=== PATIENT | female | born 1955 | race Caucasian/White ===

== ENCOUNTER 2018-12-26 13:00 | Outpatient (REF) | payer MEDICAID, SELFPAY ==
[2018-12-26 22:20] LABS: HCT 41.7 % (36.0-46.0); HGB 14.3 g/dL (12.0-15.5); Mean Corp. HGB Concentration 34.3 g/dL (32.0-36.0); Mean Corpuscular Hemoglobin 29.7 pg (27.0-33.0); Mean Corpuscular Volume 86.7 fL (80-95); Mean Platelet Volume 13.1 fL (8.0-11.0); Platelet Count 199 x1000/uL (130-400); RBC 4.81 m/cumm (4.00-5.20); RBC Distribution Width 13.2 % (11.7-14.6)
[2018-12-26 22:51] LABS: Hemoglobin A1C 5.6 % (4.5-6.2)
[2018-12-26 22:57] LABS: ALT 28 U/L (12-78); AST 23 U/L (15-37); Alkaline Phosphatase 124 U/L (46-116); Anion Gap 10.7 mmol/L (3-11); BUN 18 mg/dL (7-18); Bilirubin, Total 0.4 mg/dL (0.2-1.0); CO2 25.3 mmol/L (21.0-32.0); CREATININE 0.79 mg/dL (0.55-1.02); Calcium 9.1 mg/dL (8.5-10.1); Calculated LDL 171 mg/dL; Chloride 105 mmol/L (98-107); Cholesterol 239 mg/dL (50-200); Glucose 86 mg/dL (70-100); HDL Cholesterol 51 mg/dL (40-60); Sodium 141 mmol/L (136-145); TSH 1.43 uIU/mL (0.36-3.74); Triglyceride 86 mg/dL (30-150)
[2018-12-26 23:20] LABS: FREE T4 0.78 ng/dL (0.76-1.46)
[2018-12-28 04:55] LABS: Vitamin D 25 Total 35.3 ng/ml (30-100)
== END 2018-12-26 13:20 ==
LOC: NCHCN 13:00
PROVIDERS: PCP Family Medicine; Visit Provider Family Medicine
DX: R53.83 Other fatigue (principal); E66.3 Overweight; Z00.00 Encounter for general adult medical examination without abnormal findings
CPT/HCPCS: 80053; 80061; 82306; 83721; 85027; 83036; 84439; 84443

== ENCOUNTER 2020-10-31 21:33 | Outpatient (REF) | payer MEDICARE, SELFPAY ==
[2020-10-31 21:10] LABS: Anion Gap 9.8 mmol/L (3-11); BUN 13 mg/dL (7-18); CO2 26.2 mmol/L (21.0-32.0); CREATININE 0.7 mg/dL (0.55-1.02); Calcium 8.9 mg/dL (8.5-10.1); Calculated LDL 195 mg/dL (<100); Chloride 106 mmol/L (98-107); Cholesterol 274 mg/dL (<200); Glucose 94 mg/dL (74-106); HDL Cholesterol 63 mg/dL (40-60); Potassium 3.9 mmol/L (3.5-5.1); Sodium 142 mmol/L (136-145); Triglyceride 82 mg/dL (<150)
== END 2020-10-31 21:34 | disposition home or self-care (01) ==
LOC: NCHCN 21:33
PROVIDERS: PCP Family Medicine; Visit Provider Family Medicine
DX: E66.3 Overweight (principal)
CPT/HCPCS: 80048; 80061

== ENCOUNTER 2020-11-20 14:53 | Outpatient (REF) | payer MEDICARE, SELFPAY ==
[2020-11-20 21:26] LABS: TSH (W/Ref FT4) 1.66 uIU/mL (0.36-3.74)
== END 2020-11-20 14:54 | disposition home or self-care (01) ==
LOC: NCHCN 14:53
PROVIDERS: PCP Family Medicine; Visit Provider Family Medicine
DX: E03.9 Hypothyroidism, unspecified (principal)
CPT/HCPCS: 84443

== ENCOUNTER 2021-02-04 14:33 | Outpatient (REF) | payer MEDICARE, SELFPAY ==
[2021-02-04 15:48] LABS: BUN 14 mg/dL (7-18); CREATININE 0.9 mg/dL (0.55-1.02); Calculated LDL 193 mg/dL (<100); Chloride 105 mmol/L (98-107); Cholesterol 270 mg/dL (<200); Glucose 96 mg/dL (74-106); HDL Cholesterol 62 mg/dL (40-60); Potassium 4.1 mmol/L (3.5-5.1); Sodium 141 mmol/L (136-145); Triglyceride 75 mg/dL (<150)
== END 2021-02-04 14:34 | disposition home or self-care (01) ==
LOC: NCHCN 14:33
PROVIDERS: PCP Family Medicine; Referring Provider Family Medicine; Visit Provider Family Medicine
DX: R03.0 Elevated blood-pressure reading, without diagnosis of hypertension (principal); E66.3 Overweight; Z00.00 Encounter for general adult medical examination without abnormal findings
CPT/HCPCS: 80048; 80061

== ENCOUNTER 2022-03-16 13:36 | Outpatient (REF) | payer MEDICARE, SELFPAY ==
[2022-03-16 21:42] LABS: Calculated LDL 148 mg/dL (<100); Cholesterol 230 mg/dL (<200); HDL Cholesterol 65 mg/dL (40-60); Triglyceride 88 mg/dL (<150)
[2022-03-17 11:46] LABS: TSH (W/Ref FT4) 2.41 uIU/mL (0.36-3.74)
== END 2022-03-16 13:37 | disposition home or self-care (01) ==
LOC: NCHCN 13:36
PROVIDERS: PCP Family Medicine; Visit Provider Family Medicine
DX: E78.5 Hyperlipidemia, unspecified (principal); R53.83 Other fatigue; R03.0 Elevated blood-pressure reading, without diagnosis of hypertension; E66.3 Overweight
CPT/HCPCS: 80061; 84443

== ENCOUNTER 2023-03-10 13:35 | Outpatient (REF) | payer MEDICARE, OTHER, SELFPAY ==
[2023-03-10 17:42] LABS: ALT 23 U/L (14-59); AST 24 U/L (15-37); Albumin 3.7 g/dL (3.4-5.0); Alkaline Phosphatase 87 U/L (46-116); Anion Gap 5.8 mmol/L (3-11); BUN 14 mg/dL (7-18); Bilirubin, Total 0.4 mg/dL (0.2-1.0); CO2 29.2 mmol/L (21.0-32.0); CREATININE 0.8 mg/dL (0.55-1.02); Calcium 9.4 mg/dL (8.5-10.1); Calculated LDL 174 mg/dL (<100); Chloride 105 mmol/L (98-107); Cholesterol 252 mg/dL (<200); Estimated GFR 80.21 (mL/min/1.73m2); Glucose 103 mg/dL (74-106); HDL Cholesterol 66 mg/dL (40-60); Sodium 140 mmol/L (136-145); TSH (W/Ref FT4) 2.41 uIU/mL (0.36-3.74); Total Protein 7.2 g/dL (6.4-8.2); Triglyceride 63 mg/dL (<150)
[2023-03-10 17:44] LABS: Vitamin D 25 Total 33.1 ng/mL (30-100)
== END 2023-03-10 13:36 | disposition home or self-care (01) ==
LOC: NCHCN 13:35
PROVIDERS: PCP Family Medicine; Visit Provider Family Medicine
DX: E78.5 Hyperlipidemia, unspecified (principal); Z00.00 Encounter for general adult medical examination without abnormal findings; E66.3 Overweight; R03.0 Elevated blood-pressure reading, without diagnosis of hypertension; R53.83 Other fatigue
CPT/HCPCS: 80053; 80061; 82306; 84443

== ENCOUNTER 2024-03-13 13:12 | Outpatient (REF) | payer MEDICARE, OTHER, SELFPAY ==
--- OUTSIDE RECORDS SUMMARY | 2024-03-13 13:21 | XMS_ITS ---
Author Organization Unknown Address [address], [place] [id number] Phone Care Team Providers Care Character Actress Name Role Phone VERONICA Bryant Attending Unavailable ANNETTA Feliciano Primary Unavailable Social History Type Status Start Date End Date Code Code Syst em Smoking History Former smoker 1969 12/19/19897416 [id number] SNOMED CT Sex Female Hospital Discharge Instructions Should you have any questions prior to discharge, please contact a member of your healthcare team. If you have left the hospital and have any questions, please contact your primary care physician. Reason For Referral No Data Found Allergies and Adverse Reactions Allergy Substance Reaction Severity Start Date Concern Status Co de Code System SULFA (sulfonamide) Active 02479940 SNO MED-CT PREDNISONE Active 8640 RxNorm Plan of Treatment MM SCREEN BILAT 12/13/2023 MM SCREEN BILAT 04/13/2021 Encounters Encounter Diagnosis Start Date Code Code Sys tem Refusal of treatment by patient 06/04/2022 [id number] SNOMED-CT Personal Care Team Section Performer Name Performer Role Active Date Inactive Da te
--- OUTSIDE RECORDS SUMMARY | 2024-03-13 13:21 | XMS_ITS ---
Author Organization Unknown Address [address] [place] [phone] Phone Care Team Providers Care Forging Press Lever Tender Name Role Phone VERONICA Bryant Attending Unavailable ANNETTA Feliciano Primary Unavailable Results XR FOOT 3V RT* - Completed: 06/04/2022 14:35 LOINC: [place], [place] [address] [employer] INSTRUCTOR REPORT Patient Name: ROBERTISAIAH MRN: Sex: : Age: [id number] F [id number] Account: Accession: Admit: StayType: [id number] 06/04/2022 CLINIC Ordered: Order ID: Submitted: Ordering Provider: 06/04/2022 13:04 [id number] [facility] АННА MARTIN Completed: Technologist: Resulted: 06/04/2022 14:35 EMO 06/04/2022 14:44 Study Description: XR FOOT 3V RT* Study Reason: Pain 2D digital imaging was performed. COMPARISON: No exams were available for comparison ? FINDINGS: There is no evidence of acute fracture nor diastasis of the Lisfranc joint. Hallux valgus noted. There is also a small submillimeter calcification adjacent to the medial cortex of the head of the great toe metatarsal, of questionable significance. Cannot exclude small avulsed fragment. The actual joint space at the great toe metatarsophalangeal joint is normal. There are no osseous lesions nor erosions evident. No pes planus. Small inferior calcaneal spur noted. IMPRESSION: As above. Report Digitally Signed by Maximiliano Greco on 06/04/2022 02:44 PM EST Social History Type Status Start Date End Date Code Code Syst em Smoking History Former smoker 1969 12/19/19891557 [id number] SNOM[address] Sex Female Hospital Discharge Instructions [...] Co de Code System SULFA (sulfonamide) Active [id number] SNO MED-CT PREDNISONE Active 8640 RxNorm Plan of Treatment MM SCREEN BILAT 12/13/2023 MM SCREEN BILAT 04/13/2021 Encounters Encounter Diagnosis Start Date Code Code Sys tem Plantar fascial fibromatosis 06/04/2022 [id number] SNOMED-CT Personal Care Team Section Performer Name Performer Role Active Date Inactive Da te
--- OUTSIDE RECORDS SUMMARY | 2024-03-13 13:21 | XMS_ITS ---
Author Organization Unknown Address [address] [place], [place] [phone] Phone Care Team Providers Care Bench Machine Operator Name Role Phone VERONICA Bryant Attending Unavailable ANNETTA Feliciano Primary Unavailable Social History Type Status Start Date End Date Code Code Syst em Smoking History Former smoker 1969 12/19/19899010 [id number] SNOMED CT Sex Female Hospital Discharge Instructions [...] Co de Code System SULFA (sulfonamide) Active 28701362 SNO MED-CT PREDNISONE Active 8640 RxNorm Plan of Treatment MM SCREEN BILAT 12/13/2023 MM SCREEN BILAT 04/13/2021 Encounters Encounter Diagnosis Start Date Code Code Sys tem Plantar fascial fibromatosis 07/16/2022 [id number] SNOMED-CT Personal Care Team Section Performer Name Performer Role Active Date Inactive Da te
--- OUTSIDE RECORDS SUMMARY | 2024-03-13 13:22 | XMS_ITS | Encounter Summary ---
Author Organization [facility] [place] [address] Care Team Providers Care Student Recruiter Name Role Phone Mai Lilly MD Primary Care Provider [phone] Encounter Details Date Type Department Care Team (Latest Contact Info) Description 04/13/2016 1:30 PM EST Office [place] [address] Leah Estrella, OT Attention and concentration deficit; TBI (traumatic brain injury), without loss of consciousness, subsequent encounter; Work related injury Social History Tobacco Use Types Packs/Day Years Used Date Smoking Tobacco: Former Smokeless Tobacco: Never Sex and Gender Information Value Date Recorded Sex Assigned at Not on file Gender Identity Not on file Sexual Orientation Not on file documented as of this encounter Progress Notes * Leah Estrella OT - 04/13/2016 1:30 PM EST OCCUPATIONAL THERAPY PROGRESS NOTE Visit 7 REFERRAL SOURCE: Darlin Richardson DIAGNOSIS: 1. Attention and concentration deficit 2. TBI (traumatic brain injury), without loss of consciousness, subsequent encounter 3. Work related injury NEXT MD FOLLOW UP: TBA TOTAL TREATMENT TIME: 57 minutes TIMED CODE TREATMENT TIME: TFA 57 mins HISTORY: Martinez Manny Man is a 60 y.o. year old right handed female who presents today with a diagnosis of s/p fall down stairs (February 15 2014) with concussion and orthopedic injuries including torn plantar fascia in foot. She has continued to see an osteopathic provider for the plantar fascia and is able to ambulate. In January 2015 pt was seen by neuropsych in [place] was able to tolerate 3 hours of activity, with significant increase in symptoms, but reported that she tested normally (this therapist did not see these results). Pt reports that in 2016 she started thinking and asking about cognitive rehab. Patient was seen by Dr. Dennis in TBI clinic as request by Dr. Nacho Ortiz for post concussive symptoms and referred to occupational therapy and UNDER GROUND MINER for evaluation and treatment. Isaiah Man presents alone. PAIN: Location: headache roughly 4/10 FUNCTIONAL LIMITATIONS: Isaiah Man identifies difficulty with the following functional activities using the Patient Specific Functional Scale (PSFS): 0/10 (unable to perform) to 10/10 (Able to perform without difficulty) Activity At Evaluation 04/13 1.) Self pacing/energy conservation 5 7 2.) Doing a cognitive activity with distraction 2 4 3.) Back to work 0 0 4.) Resume writing/ typing emails (15 mins) 0 10 5.) Total: Average Score 1.75 5.25 MENTAL FUNCTION: Symptoms Evaluation 04/13/16 Scale 0-6 (0= no symptoms, 6=severe) X X Headache 2 1 Nausea 0 0 Vomiting 0 0 Balance problems 0 0 Dizziness 0 0 Fatigue 4 4 Trouble falling asleep 2 2 Excessive sleep 0 0 Loss of sleep 0 0 Drowsiness 0 0 Light sensitivity 0 1 Noise sensitivity 4 0 Irritability 1 3 Sadness 1 0 Nervousness 1 0 More emotional 1 0 Numbness 0 0 Feeling slow 4 2 Feeling foggy 3 2 Difficulty concentrating 4 2 Difficulty remembering 3 2 Visual problems 0 0 Total Administered the following subtests of the Test of Everyday Attention (TEA). The TEA is a standardized, normed assessment of various forms of attention. Version A; 01/05/16 1) Map Search: 29 in 1 min (40% for age); 71 in 2 mins (75% for age) 2) Elevator Countin of 7 strings (no norms, however, per manual even 1 missed item may be indicative of concern; pt was likely distracted by background noise) 3) Elevator Counting with Distraction: 10 of 10 correct (75% for age with ceiling effect)- Isaiah diduse the strategy of closing her eyes to decrease visual distraction (despite only non moving/staticvisual stimuli) 4) Visual Elevator: 10 of 10 correct (75% for age with ceiling effect); 107 seconds for 40 switches= 2.675 seconds/ switch (90% for age) 5) Elevator Counting with Reversal: 10 of 10 strings correct (95% with ceiling effect)- Isaiah did use the strategy of counting aloud, when she stopped counting aloud she reported that the task required significantly more energy and increased fatigue 6) Telephone Search: 19 targets in 65 seconds= 3.4 seconds/target (50% for age) 7) Telephone Search While Countin of 6 strings counted correctly, 67 seconds for 17 targets= dual task of .52 (75% for age) 8) Lottery: 8 of 10 strings (10% for age) TREATMENT TODAY: Therapeutic Activity Position Equipment/Environment Level of assistance Repetitions/ Time Response Re-administered the PSFS and concussion symptom scale Sitting Administration Significantly improved5.25 on the PSFS and decreased concussion symptoms to 15/132; she self reports significant improvement in symptoms, processing, recovery after activity Alternating attention task TBI workbook pt 106 [place] stripy words, cross out food words followed by underline sticky and double cross out straight; then add up each category of words Sitting in quiet TBI pg 106 Set up Greater than 75% accuracy with significant concrete thinking For part 3: Isaiah was able to find 5/8 repeated words- reported increase in headache to 6/10, fatigue, and increased difficulty with visual selective attention Alternating attention goal met Therapeutic discussion related to goals and forward progress in OT Sitting in quiet room 15 mins Suggested resume writing and other writing tasks in prep for return to work and IADL tasks- Isaiah declined resume writing at this time stating that she has been making progress and working a resume will feel like a failure Discussed other short writing assignments- Isaiah expressed interest in writing tips for people with 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 Isaiah reports that she is pleased with her progress. Her PSFS is up to 5.25/10 as compared to 1.75 at [facility]. She displays decreased concussion symptoms 15/132 and reports her ability to recover from high level activities such as planning, distracting environments, social gatherings, etc has improved. Isaiah completed 2.5 of her goals and the goals have been progressed. Isaiah continues to be motivated and her further goals are to improve her ability to process information, self pace, multi-task, tolerate screen time, in prep for return to work (notably her prior job was dissolved and pt wantsto seek new employment when able). These impairments have a significant impact on the patient's performance in the following areas of occupation: BADLs, IADLs, rest/sleep, education, work, leisure, driving, and social participation. Next visit: CPTA Work related tasks- goal setting and + employment skills (math tasks are not challenging) Detention Goals (to be met by discharge): Date Goal Met: 1.) Isaiah Man will complete ADL/IADL independently at a level of 8/10 on the PSFS. Goal Status: In Progress 2.) Isaiah Man will be able to resume all occupational roles independently with modifications and strategies as needed. Goal Status: In Progress Short Term Goals (to be met by visit): Date Goal Met: Isaiah Man will tolerate full attention screening via TEA and verbalize 2 compensatory strategies in prep for return to work. 01/20/16 Goal Status: MET Isaiah Man will complete a 3 stop functional scavenger thornton and recall 75% of items after 10 mins. 01/20 Goal Status: Partially met-significantly increase symptoms Isaiah Man will create a resume with mod A and no more than increase on 2 on the concussion symptom scale. Goal Status: In progress Isaiah Man will complete a 10 min alternating attention task with 75% accuracy in prep for return to work. 04/13 Goal status: MET Short Term Goals (to be met by visit): Date Goal Met: Isaiah Man will complete the Complex Planning Task Assessment with 75% accuracy and no cues for direction in prep for return to work Goal Status: In progress Isaiah Man will display improved visual selective attention by decreasing her cancellation score by 7 seconds in prep for scanning documents (for return to work). Goal Status: In progress Isaiah Man will create a resume with mod A and no more than increase on 2 on the concussion symptom scale. Goal Status: In progress Isaiah Man will complete a 15 min alternating attention task with 75% accuracy and auditory distraction in prep for return to work. Goal status: In progress Isaiah Man will increase her tolerance for work skills by writing 1 paragraph a day for a weekon a topic with no more than increase of 2 on the concussion symptom scale. Goal Status: in progress PLAN: The patient is to be seen 1 time(s) every other week, for 4 visits to progress toward short and alf goals. for Cognitive retraining attention, sequencing, problem solving and compensatorystrategies Treatment to include use of: Therapeutic Exercise, Therapeutic Activities, Neuromuscular Re-education, Patient/Caregiver education with a compensatory and rehabilitative approach (X) Isaiah Man participated in the evaluation, collaborated on treatment goals, and agrees to the treatment plan. documented in this encounter Plan of Treatment Not on file documented as of this encounter Visit Diagnoses Diagnosis Attention and concentration deficit Attention or concentration deficit TBI (traumatic brain injury), without loss of consciousness, subsequent encounter Work related injury Injury, other and unspecified, unspecified site documented in this encounter Care Teams Student Recruiter Relationship Specialty Start Date End Date Mai Lilly MD [address] [place] [address] PCP - General Family Medicine 12/03/15 documented as of this encounter
--- OUTSIDE RECORDS SUMMARY | 2024-03-13 13:22 | XMS_ITS | Encounter Summary ---
Author Organization [facility] [place] [place] [address] Care Team Providers Care Cashier Or Checker Stock Clerk Name Role Phone Mai Lilly MD Primary Care Provider [phone] Encounter Details Date Type Department Care Team (Latest Contact Info) Description 05/11/2016 2:30 PM EST Office [place] [address] Leah Estrella, OT Attention and concentration deficit; [...] of this encounter Progress Notes * Leah Estrella, OT - 05/11/2016 2:30 PM EST OCCUPATIONAL THERAPY TREATMENT NOTE Visit 8 REFERRAL SOURCE: Darlin Richardson DIAGNOSIS: 1. Attention and concentration deficit 2. TBI (traumatic brain injury), without loss of consciousness, subsequent encounter 3. Work related injury NEXT MD FOLLOW UP: TBA TOTAL TREATMENT TIME: 40 minutes TIMED CODE TREATMENT TIME: TFA 40 mins HISTORY: Martinez Manny Man is a [...] symptoms and referred to occupational therapy and SLIP PRESSER for evaluation and treatment. Isaiah Man presents [...] 10 strings (10% for age) TREATMENT TODAY: Isaiah is working with a neurologist to get her headaches under control- she is planning to have occipital nerve blocks. Therapeutic Activity Position Equipment/Environment Level of assistance Repetitions/ Time Response Therapeutic discussion related to OT, OT homework, and safe return to work planning Sitting in quiet room 40 mins Isaiah has been released to 1 hr of work with 20# lifting capacity and no more than 10 mins of screen time Discussed volunteering options including mailings, office work (without a computer), food pantry, etc. Isaiah is interested in trying some of these activities at a limited timing- such as 1 hr/week with minimal distractions, low lighting, quiet room, etc. This may help with feelings of confidence and productivity. Isaiah was able to complete her homework- over several days she wrote out a list of TBI topics/hints-1 week ago she wrote 1 paragraph about asking for help- afterwards her headache was a 5 and she was frustrated; today she wrote 3 paragraphs this morning related to TBI, headache, and recovery- her headache increased to 5/10; but she was pleased with her progress and reports it was medium level work Isaiah will continue with this activity every 3rd day for 10 mins ASSESSMENT: Isaiah Man is making progress and believes that OT and SLIP PRESSER are helpful for her recovery. Isaiah plans to take a short break from OT while she is receiving treatment through her neurologist for her headaches. She reports that she believes she will make better progress after her headaches improve, which is a valid and reasonable decision. Isaiah is considering 1 hr of volunteering per w [place] and is working on a writing project (10 mins every 3rd day) related to TBI topics, tips, etc. Isaiah continues to be motivated and her further goals are to improve her ability to process information, self pace, multi-task, tolerate screen time, in prep for return to work (notably her prior job was dissolved and pt wants to seek new employment when able). These impairments have a significant impact on the patient's performance in the following areas of occupation: BADLs, IADLs, rest/sleep, education, work, leisure, driving, and social participation. Next visit: CPTA Work related tasks- goal setting and + employment skills (math tasks are not challenging) [facility] Goals (to be met by discharge): Date [...] symptom scale. Goal Status: in progress PLAN: Isaiah is taking a short hold on OT while she is receiving treatment for her headaches through her neurologist. 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 for Cognitive retraining attention, sequencing, problem solving and compensatory strategies Treatment to include use of: Therapeutic Exercise, [...] site documented in this encounter Care Teams Cashier Or Checker Stock Clerk Relationship Specialty Start Date End Date Mai Lilly MD [address] [place] [address] PCP - General Family Medicine 12/03/15 documented as of this encounter
--- OUTSIDE RECORDS SUMMARY | 2024-03-13 13:22 | XMS_ITS | Encounter Summary ---
[place] [address] Care Team Providers Care Frame Straightener Name Role Phone Mai Lilly MD Primary Care Provider [phone] Encounter Details Date Type Department Care Team (Late st Contact Info) Description 02/26/2016 [place]phone [place] [phone] Melinda Dennis MD [facility] [place] [address] Social History Tobacco Use Types Packs/Day Years Used Date Smoking Tobacco: Former Smokeless Tobacco: Never Sex and Gender Information Value Date Recorded Sex Assigned at Not on file Gender Identity Not on file Sexual Orientation Not on file documented as of this encounter Miscellaneous Notes * Telephone Encounter - Libertad Ellis RN - 02/26/2016 4:[address] Dennis: MRI images of the brain requested from [facility]. Faxed written request. documented in this encounter Plan of Treatment Not on file documented as of this encounter Visit Diagnoses Not on filedocumented in this encounter Care Teams Frame Straightener Relationship Specialty Start Date End Date Mai Lilly MD [address] [place] [address] PCP - General Family Medicine 12/03/15 documented as of this encounter
--- OUTSIDE RECORDS SUMMARY | 2024-03-13 13:22 | XMS_ITS | Encounter Summary ---
Author Organization [facility] [place] [address] Care Team Providers Care Clerk Analyst Name Role Phone Mai Lilly MD Primary Care Provider [phone] Encounter Details Date Type Department Care Team (Late st Contact Info) Description 02/16/2017 [place] [phone] Alondra Avina, [facility] DR [place]OCRIN[place] [address] Social History Tobacco Use Types Packs/Day Years Used Date Smoking Tobacco: Former Smokeless Tobacco: Never Sex and Gender Information Value Date Recorded Sex Assigned at Not on file Gender Identity Not on file Sexual Orientation Not on file documented as of this encounter Miscellaneous Notes * Telephone Encounter - Alondra Avina DO - 02/16/2017 4:09 PM EDT Images from the original note were not included. Called Ms. Man regarding lab work which was ordered for possible pituitary abnormality. Fortunately, her labs resulted as normal which was expressed during our phone conversation. The patient has done quite a bit of research on post-TBI pituitary abnormality, and did express concern that she may still be experiencing this despite normal labs. She was reassured. If more concerns arise or she has additional questions, we are more than happy to aid in her care. Alondra Avina DO 4:14 PM 02/16/17 documented in this encounter Plan of Treatment Not on file documented as of this encounter Visit Diagnoses Not on filedocumented in this encounter Care Teams Clerk Analyst Relationship Specialty Start Date End Date Mai Lilly MD [address] [place] [address] PCP - General Family Medicine 12/03/15 documented as of this encounter
--- OUTSIDE RECORDS SUMMARY | 2024-03-13 13:22 | XMS_ITS | Encounter Summary ---
Author Organization [facility] Address [facility] [place] [address] Care Team Providers Care Medical Microbiologist Name Role Phone Mai Lilly MD Primary Care Provider [phone] Reason for Visit * Reason Comments Follow-up Encounter Details Date Type Department Care Team (Late st Contact Info) Description 02/26/2016 11:00 AM EDT Office [place] [id number] Melinda Dennis MD [facility] [place] [address] Post concussive syndrome Social History Tobacco Use Types Packs/Day Years Used Date Smoking Tobacco: Former Smokeless Tobacco: Never Sex and Gender Information Value Date Recorded Sex Assigned at Not on file Gender Identity Not on file Sexual Orientation Not on file documented as of this encounter Progress Notes * Melinda Dennis MD - 02/26/2016 11:00 AM EDT Isaiah is a 60 yo F w/ ahistory of concussion WITH loss of consciousness, she is here for follow up. She notes that she has had a mild overall improvement, but she is still having cognitive processing issues, some trouble w/ sustained attention to a screen. She still feels she is not ready to return to work. She feels she has made some gains with ST and OT, but feels she has a long way to go. She still has some headaches, she is able to ignore many of them. She is able to identify her triggers and back off when she feels a significant headache coming on. Patient Active Problem List Diagnosis Code ??? Work related injury Y99.0 ??? TBI (traumatic brain injury) S06.9X9A ??? Attention and concentration deficit R41.840 Allergies Allergen Reactions ??? Adderall [Dextroamphetamine-Amphetamine] Severe headache ??? Amantadine Esophageal spasm ??? Prednisone Psychotic reaction ??? Sulfa (Sulfonamide Antibiotics) Rash Current Outpatient Prescriptions on File Prior to Visit Medication Sig Dispense Refill ??? propranolol (INDERAL LA) 60 mg Capsule,Sustained Action 24 hr Take 60 mg by mouth daily. ??? acetaminophen-codeine (TYLENOL #3) 300-30 mg Tablet Take 1 tablet by mouth as needed for Pain. ??? multivitamin (THERAGRAN) Tablet Take 1 tablet by mouth daily. ??? calcium-vitamin D 500 mg(1,250mg) -200 unit Tablet Take 1 tablet by mouth daily. ??? b complex vitamins Capsule Take 1 capsule by mouth daily. ??? fish oil-omega-3 fatty acids 1,000 mg Capsule Take 2 g by mouth daily. ??? magnesium 250 mg Tablet Take 1 tablet by mouth daily. ??? UNABLE TO FIND Med Name: La Nena almendarez, 1 tablet daily ??? TURMERIC (CURCUMIN MISC) 1 tablet by Misc.(Non-Drug; Combo Route) route daily. ??? cyclobenzaprine (FLEXERIL) 10 mg Tablet Take 10 mg by mouth as needed for Muscle spasms. No current facility-administered medications on file prior to visit. 136/82, P 69 Mental status: Mood and affect are appropriate. Speech is fluent and appropriate, comprehension fully intact. Attention, concentration are intact. 60 yo F w/ ahistory of concussion WITH loss of consciousness, she is here for follow up. She wishesto know my opinion on whether or not she should continue OT and ST, and I do think she should continue. She has made some significant gains, but still sees room for improvement. She did not have any questions in regards to worker's compensation. Her headaches are manageable. She is improving and does not require any neurological intervention. Follow up PRN. documented in this encounter Plan of Treatment Not on file documented as of this encounter Visit Diagnoses Diagnosis Post concussive syndrome Postconcussion syndrome documented in this encounter Care Teams Medical Microbiologist Relationship Specialty Start Date End Date Mai Lilly MD [address] [place] [address] PCP - General Family Medicine 12/03/15 documented as of this encounter
--- OUTSIDE RECORDS SUMMARY | 2024-03-13 13:22 | XMS_ITS | Encounter Summary ---
Author Organization [facility] Address [facility] [place] [address] Care Team Providers Care Hand Sander Name Role Phone Mai Lilly MD Primary Care Provider [phone] Encounter Details Date Type Department Care Team (Late st Contact Info) Description 10/19/2016 2:00 PM EDT Office [place] [address] Cammie Gallo, UNION CONTRACT REPRESENTATIVE [facility] DR PHYSICAL MEDICINE & [place] [address] Attention and concentration deficit Social History Tobacco Use Types Packs/Day Years Used Date Smoking Tobacco: Former Smokeless Tobacco: Never Sex and Gender Information Value Date Recorded Sex Assigned at Not on file Gender Identity Not on file Sexual Orientation Not on file documented as of this encounter Progress Notes * Cammie Gallo - 10/19/2016 2:00 PM EDT Speech-Language Pathology Treatment session 10/19/16 Total Timed Code Treatment: 62 min for cognitive skills Worker's Comp S: ?? Isaiah presented alone and said that she had to cancel her last scheduled visit due to transportation issues. Her transporter was ill. ?? Isaiah reported that she has been working two 2 hour shifts at [employer] near her home [place], [place]. 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 ?? Isaiah reported that when she went off the Namenda, her migraine headaches went away. She still has headaches but they are much milder. She continues to take Propanolol but the dose has been reducedfrom 69 mg long acting type to two 20 mg tablets, including one in the morning and the other in theafternoon. This medication acts to keep her headache pain to a her baseline and more tolerable level. ?? Martinez will be meeting with a Occupational Medicine MD Dr. Cole Constantino on November 01. He has been highly recommended and per Isaiah will likely take a look at her current worker's comp program and make adjustments as warranted. ?? Per Isaiah, the toric lens and prism glasses have been very helpful. She is hoping to obtain reading prism glasses for night time reading after she removes her contact lenses. ?? Another change for Isaiah is that she went to a chiropractor in [place] who is certified by the [employer]. He found that she has narrowing in the C1-2 area of her spine so was getting less nourishment for her brain. This professional is working on getting her vertebrae back into alignment. She reports that his work has made a huge difference in terms of her overall health and cognitive alertness. O: ?? 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 Our discussion today resulted in a determination that Isaiah currently has reduced cognitive endurance over time. While she knows she has the ability to complete tasks successfully, she worries that in a job situation she will not be able to sustain the cognitive rigor needed to be successful. STG is successful completion of all four levels of difficulty on targeted tasks from the [employer] computer software program. Most tasks require 100% accuracy and timed tasks have time requirements that vary from task to task. LTG is successful re-entry into the community with ability to return to some type of viable employment. ?? Per Isaiah, setting the computer screen to Electron Microprobe Operator with warmer tones is helpful in reducing her cognitive fatigue and eye strain. ?? Isaiah reported that she likes having being set back to level 1 on computer tasks when she startedusing the updated neuropsychonline program. She often needs extended time to acclimate to tasks. She reports being overwhelmed by complex instructions. ?? Isaiah admits to having a relatively strong visual information processing system. Her visual recall is stronger than her auditory memory. Adjusted Isaiah's computer roster to include Design Completionunder the Visuospatial Skills panel as she found it to be visually as well as cognitively challenging. She is now on Simple Visual Reaction (fixed) under the Attention Skills panel; Basic Concepts under Executive Skills; Sequenced Recall Digits (visual) under the Memory panel (which per Martinez is challenging in that she needs to look carefully at the numbers in order to retrieve them); Design Completion under Visuospatial Skills; and Deduce It under Problem Solving. ?? We reviewed tasks on Isaiah's current roster and also looked ahead to other tasks that likely willchallenge Isaiah. She reported at the end of this visit that today was very productive. A/P: ?? Continued skilled ST services to monitor Isaiah's work on the [employer] computer software program as well as to assist her with cognitive endurance as warranted. She is slowly increasing her computer screen time and experiencing overall improvement in attention/concentration and sustained focus as well as cognitive endurance. ?? Isaiah will be scheduling two f/u one hour visits with UNION CONTRACT REPRESENTATIVE Sheila Elam in order to continue with her computer work and have a skilled clinician adjust her roster for her as needed. If approves additional visits and UNION CONTRACT REPRESENTATIVE Sheila thinks that Isaiah would benefit from continued skilled ST services, the number of visits could be increased. Cammie Gallo M.S., [facility]-UNION CONTRACT REPRESENTATIVE Pager#[phone] documented in this encounter Plan of Treatment Not on file documented as of this encounter Visit Diagnoses Diagnosis Attention and concentration deficit Attention or concentration deficit documented in this encounter Care Teams Hand Sander Relationship Specialty Start Date End Date Mai Lilly MD [address] [place] [address] PCP - General Family Medicine 12/03/15 documented as of this encounter
--- OUTSIDE RECORDS SUMMARY | 2024-03-13 13:22 | XMS_ITS | Encounter Summary ---
Author Organization [facility] [place] [address] Care Team Providers Care Senior Procurement Manager Name Role Phone Mai Lilly MD Primary Care Provider [phone] Encounter Details Date Type Department Care Team (Latest Contact Info) Description 08/24/2016 2:30 PM EDT Office [place] [address] Leah Estrella, OT Attention and concentration deficit; [...] Progress Notes * Leah Estrella, OT - 08/24/2016 2:30 PM EDT OCCUPATIONAL THERAPY TREATMENT NOTE Visit 9 REFERRAL SOURCE: Darlin Richardson DIAGNOSIS: 1. Attention and concentration deficit 2. TBI (traumatic brain injury), without loss of consciousness, subsequent encounter 3. Work related injury NEXT MD FOLLOW UP: TBA TOTAL TREATMENT TIME: 57 minutes TIMED CODE TREATMENT TIME: TFA 57 mins HISTORY: Isaiah Manny Man is a 60 y.o. year [...] symptoms and referred to occupational therapy and POINT OF CARE TECHNICIAN for evaluation and treatment. Isaiah Man presents alone. PAIN: Location: 0/10 FUNCTIONAL LIMITATIONS: Isaiah Man identifies difficulty with [...] strings (10% for age) TREATMENT TODAY: Isaiah saw Dr. Robertson in [place] an manager proposal. She was prescribed prism reading glasses. She has been doing better with reading due to the glasses. 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 She is planned to have a chiropractor on 09/02/16 for a possible cervical adjustment which she hopes improves her fatigue, headache, etc. She was approved by her neurologist for 1-3 hrs of work a day for 5 days without screen time. 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 Isaiah was able to complete that work for 1.5 hrs but was very fatigued afterward. Isaiah is also working with vocational rehab (who is hired by the [facility]). The possible plan is a month of volunteer work, one month of job search, and the third month is supported work. 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 Discussed at length suggestions for screen time- see below. Also discussed the benefit of dictation software to decrease screen time and decrease the motor planning of typing (which she reports is a challenge). TIPS AND TRICKS FOR REDUCING EYE STRAIN Eye Strain is one of the most common symptoms seen with computer use. It is important to rest your eyes every 20-30 minutes when possible. Performing simple exercises, making changes to your computer, and changes in your work environment may help reduce your symptoms as well. EXERCISES: Head Rolls This exercise is to relax your neck, head and face muscles and reduce shoulder tension. 1.) Take a deep breath and close your eyes. 2.) On the exhale, slowly drop your chin to your chest. Relax your neck and shoulders. 3.) As you inhale deeply again, slowly and gently roll your head around to the left, then back, keeping your shoulders still and relaxed. 4.) Make your movements slowly, carefully and deliberately. 5.) Now exhale full as you roll your head to the other side and down to your chest again. 6.) Repeat this sequence twice then change directions and repeat twice more. Palming The palming exercise will teach you to relax your eyes, which in turn will bring healthy energy to your eyes. 1.) First, rub your hands together until they feel warm (about 15 to 20 seconds). Then place your cupped hands over your closed eyes, being careful not to touch your eyes with the palms of your hands. The fingers of each hand should overlap and rest gently on the center of your forehead. Don't create any unnecessary pressure on your face. 2.) Sit quietly for one to two minutes with your hands over your eyes. The more relaxed you become,the angela the darkness you will see with your eyes closed. Scanning This exercise helps you increase the flexibility and health of your eyes. 1.) Every 30 minutes blink 10 times by closing your eyes decreasing dryness in your eyes. (We blinkless while working with a computer screen.) 2.) Sitting or standing at one end of a room, let your eyes scan around the edges of objects in theroom - clocks, televisions, doors, lights, computers, etc. 3.) The object of this exercise is to keep your eyes moving in a loose and fluid way. 4.) Do this exercise for two minutes. 5.) Focus for 10-15 seconds on a distant object outside or down the hallway, near for 10-15 seconds 6.) Remember to breathe. You can watch our short video demonstration COMPUTER SETTINGS: Adjust the brightness of Computer Screen: Eyestrain is often caused by excessively bright light coming in from outside and excessively bright light inside. When you use a computer, your ambient lighting should be about half that used in most offices. Also adjust the monitor to make sure the contrast between the screen background and the on-screen characters is high (Black type on white pages). CenturyLink XP has a function called clear type which can be turned on and will improve readability and clarity. Increase your monitor refresh rate: Higher refresh rates are less likely to cause eyestrain. The DIRECTOR OF PHYSICIAN PRACTICES refresh rate may be custom calibrated to reduce the flicker, and in turn reduce the typical eye strain and fatigue associated with a low refresh rate. The flexibility you have to custom calibrate refresh rates may also be dependent on the quality of your computer???s video and graphics card as well as your monitor Place your computer monitor 18-30 inches from your eyes. If you are seated near an air vent or draft, try to eliminate the flow of air in front of your eyes. Anti-glare monitor rizzo and filters may be optical glass quality, polarized, and designed for DIRECTOR OF PHYSICIAN PRACTICES, flat panel or laptop monitors. You may opt for an additional privacy feature and models with an anti-static coating that repel dust and other particulate matter. Polarized rizzo offer top of the line protection. ASSESSMENT: Isaiah Man is making progress and believes that OT and POINT OF CARE TECHNICIAN are helpful for her recovery. Isaiah plans to take a short break from OT while she is receiving treatment through her neurologist for her headaches. Isaiah has not been seen since April due to cancelled appointments related to headache and weather/snow storms. She reports improvement in many areas after getting prism glasses and seeing a mold shop supervisor for headache remedies. 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 Isaiah continues to be motivated and her [...] employment skills (math tasks are not challenging) Dictation software Look at tbi booklet Aquaculture Farm Manager Goals (to be met by discharge): Date Goal Met: 1.) Isaiah Man will complete ADL/IADL independently at a level of 8/10 on the PSFS. Goal Status: In Progress 2.) Isaiah Man will be able to resume all occupational roles independently with modifications and strategies as needed. Goal Status: In Progress Short Term Goals (to be met by 6th visit): Date Goal Met: Isaiah Man will [...] 3 visits to progress toward short and bed bug exterminator goals. for Cognitive retraining attention, sequencing, problem [...] site documented in this encounter Care Teams Senior Procurement Manager Relationship Specialty Start Date End Date Mai Lilly MD [address] [place] [address] PCP - General Family Medicine 12/03/15 documented as of this encounter
--- OUTSIDE RECORDS SUMMARY | 2024-03-13 13:22 | XMS_ITS | Encounter Summary ---
Author Organization [facility] [place] [address] Care Team Providers Care Analytical Sciences Director Name Role Phone Mai Lilly MD Primary Care Provider [phone] Reason for Visit * Reason Onset Date Comments Other 08/18/2016 Encounter Details Date Type Department Care Team (Late st Contact Info) Description 08/18/2016 [place] [address] Tea Hayden MSW [facility] [place] [address] Other Social History Tobacco Use Types Packs/Day Years Used Date Smoking Tobacco: Former Smokeless Tobacco: Never Sex and Gender Information Value Date Recorded Sex Assigned at Not on file Gender Identity Not on file Sexual Orientation Not on file documented as of this encounter Progress Notes * Tea Hayden MSW - 08/18/2016 10:36 AM EDT 08/18/16 1000 Workers' Compensation Type of Visit Initial Is your claim open and active? Yes Work Status OOW (starting volunteering at plant [employer]) Treating Provider Managing WC Yes Managing Provider Name Neurologist [facility] Managing Provider Number [facility] Valery Allan [phone] Receiving Wage Replacement Yes Do you have a Workers' Comp Contact? Yes Workers' Compensation Contact Name RUKHSANA todd # [id number] Workers' Compensation Contact Number multi line claims adjuster; Kierra Reagan # [phone] Is there an patent attorney for Workers' Compensation No Was there an ELKE? (to be scheduled ) Previous WC claims through the DOL? No MMI? No CCM Was consulted by [facility] admin staff: Mariaelena Pizarro to help address pt's wc issues. Reviewed edh record, noting pt's previous encounters w/ and Lala Richardson, but w/ no f/u appts w/ either providers. Pt is scheduled to f/u w/ [facility] [place] and PT, after taking a respite from tx, which OT documented. Phoned to assess needs. 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 reports this recommendation was promoted by the [facility] NCM that attended her appt in place of NCM: Valery Lemus. 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 insurance ie: [facility], claim # [id number], multi line claims adjuster: Kierra Reagan # [phone]. Pt is now introduced to Voc Rehab, and has a counselor she is actively working with ie: Constance Edwards. Ms. 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 [facility] addressed the options for pt to be referred to [facility] Occ Med MD if her insurance authorized such, noting that this MD to address the wc issues and work capacity, likely ordering a CFCE to better ascertain her work capability, as pt's Neurologist is currently expected to serve in this role. Pt is not scheduled for f/u appts w/ or Lala Richardson at [facility], and [facility] questioned if is overseeing the Neuro Rehab tx that she is still engaged in at [facility]. Pt was not sure if was receiving the notes from OT and LATHMAKER, and [facility] relayed plan to collaborate w/ Neuro Rehab team to address this question, and f/u appt needs w/ either or Vonnie. [facility] relayed plan to mail her the [place] dpt of labor brochure on know your rights recommending she utilize this resource re: questions about Voc Rehab involvement. Pt was most appreciative of [facility]'s contact, and [facility] Lemus to address potential [facility] referral needs w/ Occ med or for a CFCE. [facility] spoke w/ Valery Lemus [facility] # [phone] fax # [phone] on 08-18 re: my Contact w/ Ms. Man and to address potential [facility] referral needs. [facility] noted that pt is likely to have an ELKE scheduled so the option to introduce additional tx providers may be on hold due to the ELKE needs, however she did endorse the benefit of the Occ med referral and CFCE noting plan to address this w/ the PMA multi line claims adjuster accordingly. [facility] invited NCM to f/u w/ me if in need of assistance w/ the aforementioned referrals, pending multi line claims adjuster's approval. Phoned pt back on 08-18 to relay contact w/ [facility] re: the Occ med and CFCE potential referral needs, inviting pt to f/u w/ me PRN. No other immediate needs identified at this time. P: [facility] will be available to help facilitate Occ med and/or CFCE referral needs PRN. [facility] will collaborate w/ [facility] tx team re; the above encounter and recommendations,intervening as needed. documented in this encounter Plan of Treatment Not on file documented as of this encounter Visit Diagnoses Not on filedocumented in this encounter Care Teams Analytical Sciences Director Relationship Specialty Start Date End Date Mai Lilly MD [address] [place] [address] PCP - General Family Medicine 12/03/15 documented as of this encounter
--- OUTSIDE RECORDS SUMMARY | 2024-03-13 13:22 | XMS_ITS | Encounter Summary ---
[facility] Address [facility] [place] [address] Care Team Providers Care Coiler Name Role Phone Mai Lilly MD Primary Care Provider [phone] Encounter Details Date Type Department Care Team (Late st Contact Info) Description 02/13/2016 11:00 AM EDT Office [place] [address] Cammie Gallo, BRUSH HOLDER INSPECTOR [facility] [place] [address] Attention and concentration deficit Social History Tobacco Use Types Packs/Day Years Used Date Smoking Tobacco: Former Smokeless Tobacco: Never Sex and Gender Information Value Date Recorded Sex Assigned at Not on file Gender Identity Not on file Sexual Orientation Not on file documented as of this encounter Progress Notes * Cammie Gallo - 02/13/2016 11:00 AM EDT Speech-Language Pathology Treatment session 02/13/16 Total Timed Code Treatment: 53 min for cognitive skills S: ?? Colon reported having a mild LONGORIA today, the word mild to her meaning that she can ignore it. ?? Michelle reported feeling well and feeling that the cognitive computer tasks are challenging her while also improving her brain function. She can feel the positive changes happening. Per Michelle, the ST and OT visits scheduled every two weeks works well because, with increased capacity comes the need to adapt her home environment and schedule to accommodate her increased cognitive endurance. AlthoughHA's have increased to some extent, Colon also appreciates the fact that she is slowly increasing her computer time, etc. She currently tolerates about 10 minutes of computer time. ?? Michelle mentioned that per her neurologist, Dr. Brito, her MRI revealed white matter changes in both frontal and temporal lobes. O: STG is successful completion of all four levels of difficulty on targeted tasks from the Palette computer software program. Most tasks require 100% accuracy and timed tasks have time requirements that vary from task to task. LTG is successful re-entry into the community with ability to return to some type of viable employment. ?? Reviewed Mcihelle's computer roster. The one task that Michelle has been unable to succeed at has been the Simply Logical task at level two, in which one is given seven chances to figure out color sequences given four different colored blocks. Suggested that Michelle select all of one color, such as red, determining if the color is present in the sequence, and in which order. After selecting red, her nexttrial should consist only of one other color, such as blue, and so on until she has figured out which colors are present and in what order they appear in each sequence. I think if she uses this strategy, she will likely be able to deduce which colors are used, and in which order, for each sequence.Michelle was selecting one color for only the initial sequence so had more difficulty deducing the color combinations given only seven tries to do so. She said she will continue to work at level 2 at home (having successfully completed level 1). ?? Currently, Michelle is on level 2 of Serial Addition and level 4 of Follow My Instructions (written), having successfully completed one pass at this highest level. After Michelle has achieved success withall four levels of this task, she will automatically (when she clicks on the rerun button) be movedto the next task under the Communication panel, entitled Follow My Instructions (vocal). ?? We discussed Michelle's upcoming family reunion in [place] to celebrate her brother's 70th birthday), and Michelel asked me for any suggestions to minimize sensory overload, cognitive fatigue and the like. I suggested that she take a nap on the plane if able, excuse herself to go to the bathroom if needing time away from conversations, etc, perhaps using a written log to document particular impressions and feelings, and asking about a quiet area for the family to gather for her brother's birthday dinner. Michelle will be staying at an [employer] close to her brother's home so can always get away to rest or recuperate as needed. She herself thought about taking a walk when feeling the need to decompress or be alone. A: ?? Michelle continues to be highly motivated to maximize her cognitive function. She is diligent with her HEP and hopes to eventually return to work in some capacity. I have no doubt that she will accomplish her goals. P: ?? Check with Michelle to determine how her trip to [place] went, including her fatigue level, handlingof environmental stimulation and cognitive endurance. ?? Adjust computer program roster as warranted to best address Michelle's individual needs. ?? Review computer items completed. Check progress. ?? Continue with one hour ST visits every two weeks, dovetailing with OT as much as possible. Currently, Michelle has appts scheduled through April 13. ?? Colon agreed with this plan. Cammie Gallo M.S., CCC-BRUSH HOLDER INSPECTOR Pager#[phone] documented in this encounter Plan of Treatment Not on file documented as of this encounter Visit Diagnoses Diagnosis Attention and concentration deficit Attention or concentration deficit documented in this encounter Care Teams Coiler Relationship Specialty Start Date End Date Mai Lilly MD [address] [place] [address] PCP - General Family Medicine 12/03/15 documented as of this encounter
--- OUTSIDE RECORDS SUMMARY | 2024-03-13 13:22 | XMS_ITS | Encounter Summary ---
Author Organization [facility] Address [facility] [place] [address] Care Team Providers Care Credit Verification Clerk Name Role Phone Mai Lilly MD Primary Care Provider [phone] Encounter Details Date Type Department Care Team (Latest Contact Info) Description 03/03/2016 2:30 PM EDT Office Visit [place] [address] Leah Estrella, OT Attention and concentration deficit; Work related injury; TBI (traumatic brain injury), without loss of consciousness, subsequent encounter Social History Tobacco Use Types Packs/Day Years Used Date Smoking Tobacco: Former Smokeless Tobacco: Never Sex and Gender Information Value Date Recorded Sex Assigned at Not on file Gender Identity Not on file Sexual Orientation Not on file documented as of this encounter Progress Notes * Leah Estrella, OT - 03/03/2016 2:30 PM EDT OCCUPATIONAL THERAPY TREATMENT NOTE Visit 6 REFERRAL SOURCE: Darlin Richardson DIAGNOSIS: 1. Attention and concentration deficit 2. Work related injury 3. TBI (traumatic brain injury), without loss of consciousness, subsequent encounter NEXT MD FOLLOW UP: TBA TOTAL TREATMENT TIME: 55 minutes TIMED CODE TREATMENT TIME: TFA 55 minutes Therapeutic / Functional Activities (84491) 55 min HISTORY: Isaiah Man is a 60 y.o. year old [...] symptoms and referred to occupational therapy and MEDICAL ONCOLOGY PHYSICIAN for evaluation and treatment. Isaiah Man presents alone. PAIN: Location: headaches (consistent low level headaches 1-2); sore spot on skull in L occipital area, and neck pain, plantar fascia tear 4-5 if too much walking (typically a 2-3) FUNCTIONAL LIMITATIONS: Isaiah Man identifies difficulty with the following functional activities using the Patient Specific Functional Scale (PSFS): 0/10 (unable to perform) to 10/10 (Able to perform without difficulty) Activity At Evaluation 1.) Self pacing/energy conservation 5 2.) Doing a cognitive activity with distraction 2 3.) Back to work 0 4.) Resume writing 0 5.) Total: Average Score 1.75 MENTAL FUNCTION: Symptoms Evaluation Scale 0-6 (0= no symptoms, 6=severe) X Headache 2 Nausea 0 Vomiting 0 Balance problems 0 Dizziness 0 Fatigue 4 Trouble falling asleep 2 Excessive sleep 0 Loss of sleep 0 Drowsiness 0 Light sensitivity 0 Noise sensitivity 4 Irritability 1 Sadness 1 Nervousness 1 More emotional 1 Numbness 0 Feeling slow 4 Feeling foggy 3 Difficulty concentrating 4 Difficulty remembering 3 Visual problems 0 Total 26/132 Administered the following subtests of the Test [...] Equipment/Environment Level of assistance Repetitions/ Time Response N back working memory task for remediation of working memory (ipad based program) Sitting in room with dimmed lights ipad Set up 10 mins Isaiah found the n back ipad darrin through [employer] and has graduated to level 2; she is very pleased with this and reports she believes it is helping with her working memory Self pacing with family visitation in [place] 20 mins Isaiah reports she worked to pre- plan the trip for [facility] and worked for 2-4 hrs with house activities, prioriziting, etc. Prior to trip; this was a significant improvement for her and she is very pleased with her ability to self pace Warm up visual cancellation task to improve visual selective attention in prep for IADLs Sitting inroom with dimmed lights H cancellation task Set up 10 H trial = 1 min and 33 seconds and 100% accurate 8 Trial with music distraction = 1 min 32 seconds Despite the same time for activities-increased headache due to filtering out auditory distraction Visual selective attention and problem solving task of map reading skills (see the [facility] [employer] section below) in prep for IADls Task: ?? Locate locations on map ?? Prioritize the map ?? Write directions between the locations Sitting [facility] 20 mins 13 mins and 44 seconds Isaiah was able to complete the activity with writing out the list of locations, she circled only 1 of the 8 on the map- she did not have to draw out the route and displayed improved working memory forthe task Completed with 100% accuracy and reports that she was able to complete it but after the activity was at a 6/10 pain scale; she was very fatigued after the activity [facility] Skills For this activity you need a local stores/routes map. [place]/[facility] Region ??? Here is a list of 8 afternoon chores, they do not need to be done in any specific order- find the most efficient route and write out the directions between these places: 1. marble installer supervisor lunch at the [facility] 2. marble installer supervisor your tickets for the next show at the [facility] 3. Go for a walk at the [employer] behind the [facility] 4. marble installer supervisor your prescription at the [facility] pharmacy 5. Return a sweater your mother got you at [employer] 6. marble installer supervisor milk, eggs, and bread for Kinyarwanda toast for tomorrow???s breakfast 7. Drop off your library books in [place] 8. Return home to [place], [place] ASSESSMENT: Isaiah Man is making progress and believes that OT and MEDICAL ONCOLOGY PHYSICIAN are helpful for her recovery. Isaiah reports that she is pleased with the slow but forward progress she is making through OT and MEDICAL ONCOLOGY PHYSICIAN. Isaiah completed several visual selective attention tasks starting with a warm up cancellation then expanding to a functional map search. After the session her headache increased to 6/10 and s he was very fatigued but pleased with her increased processing ability, ability to retain information without consistently referring to the list, circling locations on the map, etc. Isaiah's goals are to improve her ability to [...] leisure, driving, and social participation. Next visit: Work related tasks- goal setting and + employment skills (math tasks are not challenging) Snf Goals (to be met by discharge): Date [...] accuracy in prep for return to work. Goal status: in progress PLAN: The patient is to be seen 1 time(s) per week, for 6-12 week(s) to progress toward short and chcf goals. for Cognitive retraining attention, sequencing, problem [...] and concentration deficit Attention or concentration deficit Work related injury Injury, other and unspecified, unspecified site TBI (traumatic brain injury), without loss of consciousness, subsequent encounter documented in this encounter Care Teams Credit Verification Clerk Relationship Specialty Start Date End Date Mai Lilly MD [address] [place] [address] PCP - General Family Medicine 12/03/15 documented as of this encounter
--- OUTSIDE RECORDS SUMMARY | 2024-03-13 13:22 | XMS_ITS ---
Author Organization Unknown Address [address] [place] [phone] Phone Care Team Providers Care Compliance Assistant Name Role Phone ANNETTA Feliciano Attending Unavailable Results MM SCREENING BILAT MAMMO W T VENUS W CAD* - Completed: 12/13/2023 15:00 LOINC: [facility] [place], [place] [address] RADIOLOGY PACS ENGINE PILOT REPORT Patient Name: ISAIAH JONES MRN: Sex: : Age: [id number] F [id number] Account: Accession: Admit: StayType: [id number] 12/14/2023 O Ordered: Order ID: Submitted: Ordering Provider: 12/13/2023 14:30 [id number] KT PASCALE LITTLEJOHN Completed: Technologist: Resulted: 12/13/2023 14:51 BMM 12/14/2023 20:34 FINAL REPORT EXAMINATION: MM SCREENING BILAT MAMMO W KRISTIE W CAD REASON FOR EXAM: Screening TECHNIQUE: CC and MLO views were obtained of BOTH breasts. 2D and 3D tomosynthesis images were obtained. COMPARISON: Comparison was made to the prior relevant examinations. BREAST DENSITY: The breast tissue is heterogeneously dense, which may obscure small masses. FINDINGS: There are no suspicious microcalcifications, masses, or areas of distortion. Stable appearance. IMPRESSION: No mammographic evidence of malignancy. Routine screening mammography is recommended. FINAL ASSESSMENT: BI-RADS Category 1: Negative * Regular screening mammograms starting at age 40 reduce the risk of from breast cancer. * Individuals should discuss the risks and benefits with their provider to determine their preferred breast cancer screening schedule, and at what age screening should stop. * Individuals should report any breast changes to a health care provider right away. * Some Individuals, because of their family history, a genetic tendency, or other factors, should consider being screened with annual breast MRI as well as with mammograms. * Screening mammography may not detect 10-15% of?breast cancers. Thank you for letting us participate in the care of this patient. If you are a health care provider and have any questions regarding this report, please contact the number below. For patients who have questions please contact the health healthcare management consultant that requested your imaging first. Electronically signed by: Dennise Gresham MD [facility] ([phone]), at 12/14/2023 8:34 PM Social History Type Status Start Date End Date Code Code Syst em Smoking History Former smoker 1970 12/19/19894403 4846645 SNOMED CT Sex Female Hospital Discharge Instructions [...] Co de Code System SULFA (sulfonamide) Active 31834546 SNO MED-CT PREDNISONE Active 8640 RxNorm Plan of Treatment MM SCREEN BILAT 12/13/2023 MM SCREEN BILAT 04/13/2021 Encounters Encounter Diagnosis Start Date Code Code Sys tem Screening mammography 12/13/2023 [id number] SNOMED -CT Personal Care Team Section Performer Name Performer Role Active Date Inactive Da te
--- OUTSIDE RECORDS SUMMARY | 2024-03-13 13:22 | XMS_ITS | Encounter Summary ---
Author Organization [facility] Address [facility] [place] [address] Care Team Providers Care Service Transformer Repair Supervisor Name Role Phone Mai Lilly MD Primary Care Provider [phone] Reason for Visit * Reason Onset Date Comments Other 11/25/2016 Encounter Details Date Type Department Care Team (Late st Contact Info) Description 11/25/2016 Telephone Care Management [facility] [place] [id number] [place] [address] Other Social History Tobacco Use Types Packs/Day Years Used Date Smoking Tobacco: Former Smokeless Tobacco: Never Sex and Gender Information Value Date Recorded Sex Assigned at Not on file Gender Identity Not on file Sexual Orientation Not on file documented as of this encounter Progress Notes * Tea Hayden TREASURER - 11/25/2016 2:17 PM EDT Pt phoned [facility] to ask about wc issues related to a recent denial for plantar injections w/ an OSH provider. [facility] had previously consulted w/ pt re: wc issues and collaborated w/ her wc NCM: Valery Lemus accordingly # [phone]. Pt' wc insurance is: [facility] clia # [id number] Workers' Compensation Contact Number damage inside adjuster; Kierra Reagan # [phone] reports recent knowledge of her treating [facility] that has been billed to [facility]. Pt reports having made multiple contacts w/ [facility] within the past few months to inquire about the status of the authorization for the foot tx services, and was told by [facility] damage inside adjuster that there was no record of this tx being denied. has not received any formal documentation from [facility] re: this denial, but reports the information was relayed to her verbally and by the treating provider. [facility] explained that pt needed to secure the written denial for the tx that would then enable her to appeal the denial w/ the [place] dpt of Labor. Pt was previously sent the [place] dpt of Labor brochure know your rights by [facility] which does outline the appeal process, which pt referenced. Pt relayed plan to pursue the appeal, and [facility] instructed her to obtain the written denial correspondence from [facility] and to contact the [place] dpt of labor requesting an appeal, noting her need to send the [place] dpt of Labor documentation from her treating provider to substantiate the causal relationship w/ the tx and her work injury. Pt reports provider completes the wc form at each visit, and she is confident that the documentation would support her tx needs related to the work injury. Pt was most appreciative of [facility]'s contact, and invited to f/u w/ me PRN. P: [facility] will be available for f/u intervention PRN. 11/25/16 1400 Workers' Compensation Type of Visit Follow-up Is your claim open and active? Yes Work Status Light Duty Do you have a Workers' Comp Contact? Yes Workers' Compensation Contact Name RUKHSANA todd # [id number] Workers' Compensation Contact Number [facility] Valery Lemus [phone] Are there bills not covered by Workers' Compensation? Yes (reason for her call 11-25 to discuss recent denial) Is there an tax attorney for Workers' Compensation No Previous WC claims through the [employer]? No documented in this encounter Plan of Treatment Not on file documented as of this encounter Visit Diagnoses Not on filedocumented in this encounter Care Teams Service Transformer Repair Supervisor Relationship Specialty Start Date End Date Mai Lilly MD [address] [place] [address] PCP - General Family Medicine 12/03/15 documented as of this encounter
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
--- OUTSIDE RECORDS SUMMARY | 2024-03-13 13:22 | XMS_ITS | Encounter Summary ---
Author Organization [facility] [place] [address] Care Team Providers Care Prosthodontist/Educator Name Role Phone Mai Lilly MD Primary Care Provider [phone] Encounter Details Date Type Department Care Team (Latest Contact Info) Description 10/27/2016 2:30 PM EDT Office Visit [place] [address] Leah Estrella, OT Attention and concentration deficit; TBI (traumatic brain injury), without LOC, subsequent encounter; Work related injury Social History Tobacco Use Types Packs/Day Years Used Date Smoking Tobacco: Former Smokeless Tobacco: Never Sex and Gender Information Value Date Recorded Sex Assigned at Not on file Gender Identity Not on file Sexual Orientation Not on file documented as of this encounter Progress Notes * Leah Estrella, OT - 10/27/2016 2:30 PM EDT OCCUPATIONAL THERAPY TREATMENT NOTE Visit 11 REFERRAL SOURCE: Darlin Richardson DIAGNOSIS: 1. Attention and concentration deficit 2. TBI (traumatic brain injury), without LOC, subsequent encounter 3. Work related injury NEXT [...] symptoms and referred to occupational therapy and [facility] for evaluation and treatment. 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 She has been writing names on the plant stakes and then putting the stakes into the appropriate plants. Isaiah is very concerned about how her cognitive time is so limited-after 2 hours she is very, very fatigued. Isaiah is also working with vocational rehab (who is hired by the [facility]). The possible plan is a month of volunteer work, one month of job search, and the third month is supported work. On November 01 she has occupational medicine who will complete the return to work paperwork. Discussed how we recommend doing 1 task at a time-she reports that she is trying to do more multi-tasking. Suggested working on shifting attention between 2 simple tasks for short periods of times tochallenge this-such as cooking oatmeal on the stove and working on writing a list of groceries. During OT completed Office Supplies Kit: You are helping to check the inventory of the office supplies. Please make an excel spreadsheet inventory list and a visual diagram of the supply cart- with categories and labels. Please keep track of time- you have 10 minutes to complete the activity before you email your boss the inventory list, interoffice mail the diagram, and head to your next meeting. You may use an envelope from the inventory to complete the interoffice mailing- be sure to correct your inventory. The interoffice mail boxis in the hallway with the large copy machine in the back right hallway of the 2L office. Please find your way there to mail your diagram. Isaiah completed within the 10 mins and reported fatigue with mild increase in headache to 2/10. She needed no cuing or assistance with the activity and was able to tolerate 5 mins of laptop screen time. Isaiah also started to work on planning the beds of her garden-she was able to draw the beds and write a list of vegetables-she reports issues with initiation and once she gets help for the first step is able to complete it. After 2 cues she was able to design where to place various plants according to rotating beds, etc. ASSESSMENT: Isaiah Man is making progress and believes that OT and [facility] are helpful for her recovery. Isaiah plans to take a short break from OT while she is receiving treatment through her neurologist for her headaches. Isaiah continues to be motivated and her [...] leisure, driving, and social participation. Next visit: D/c? Work related tasks- goal setting and + employment skills Initiation problsm Manager Credit Risk Goals (to be met by discharge): Date [...] Term Goals (to be met by visit): extend to 12 visit Date Goal Met: Isaiah aMn will complete the Complex Planning Task Assessment with 75% accuracy and no cues for direction in prep for return to work 10/11/16 Goal Status: MET Isaiah Man will display improved visual selective [...] of 2 on the concussion symptom scale. 10/11/16 Goal Status: MET PLAN: 1 time(s) every other week, for 3 visits to progress toward short and chcf goals. [...] concentration deficit TBI (traumatic brain injury), without LOC, subsequent encounter Work related injury Injury, other and unspecified, unspecified site documented in this encounter Care Teams Prosthodontist/Educator Relationship Specialty Start Date End Date Mai Lilly MD [address] [address] PCP - General Family Medicine 12/03/15 documented as of this encounter
--- OUTSIDE RECORDS SUMMARY | 2024-03-13 13:22 | XMS_ITS | Encounter Summary ---
Author Organization [facility] Address [facility] [place] [address] Care Team Providers Care Manager Therapy Name Role Phone Mai Lilly MD Primary Care Provider [phone] Reason for Visit * Reason Comments Visual Disturbance * Consultation (Routine) - Closed Specialty Diagnoses / Procedures Referred By Chantel t Referred To Contact Ophthalmology Diagnoses visual tracking deficit? (fall 3.5 yrs ago) Cole Constantino MD [address] [place] [phone] Elham Valdivia MD [facility] [place] [address] Referral ID Status Reason Start Date Expiration Date V isits Requested Visits Authorized [id number] Closed Consult, Test & Treat 09/16/2017 09/16/2018 1 1 Encounter Details Date Type Department Care Team (Late st Contact Info) Description 12/12/2017 2:00 PM EDT Office [place] [address] Elham Valdivia MD [facility] [place] [address] Unspecified visual disturbance; Retinal lesion Social History Tobacco Use Types Packs/Day Years Used Date Smoking Tobacco: Never Smokeless Tobacco: Never Alcohol Use Standard Drinks/Week Comments Yes 0 (1 standard drink = 0.6 oz pur e alcohol) very little Sex and Gender Information Value Date Recorded Sex Assigned at Not on file Gender Identity Not on file Sexual Orientation Not on file documented as of this encounter Progress Notes * Elham Douglas MD - 12/12/2017 2:00 PM EDT Isaiah Man reports having difficulty with visual tracking and reading after prolonged periods of time. On examination today, Isaiah Man exhibited normal visual function at 20/20 in each eye, full color vision, with no evidence of a relative afferent pupillary defect that would suggest an underlying optic nerve dysfunction. Static visual camacho were full bilaterally. Sensorimotor examination revealed full extraocular movements, with accurate saccades and smooth pursuit. She was orthotropic in all directions of gaze and scored a full score on the stereopsis test. Dilated eye examination revealed mild nuclear sclerotic cataracts. The optic nerves are healthy and pink bilaterally. 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 Left retina is normal. The OCT revea led normal RNFL of both optic nerves. Normal neuro-ophthalmic examination today. 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 documented in this encounter Plan of Treatment Not on file documented as of this encounter Procedures Procedure Name Priority Date/Time Associated Diagnosis Comments FUNDUS PHOTOS - OU- BOTH EYES Routine 12/12/2017 3:33 PM EDT Retinal lesion OCT OPTIC NERVE - OU - BOTH EYES Routine 12/12/2017 3:33 PM EDT Unspecified visual disturbance SENSORIMOTOR EXAM Routine 12/12/2017 3:2 2 PM EDT Unspecified visual disturbance AUTOMATED VISUAL FIELD - EXTENDED - OU- BOTH EYES Routine 12/12/2017 3:22 PM EDT Unspecified visual disturbance documented in this encounter Results * FUNDUS PHOTOS - OU- BOTH EYES (12/12/2017 3:33 PM EDT) Anatomical Region Laterality Modality Other Narrative 12/12/2017 3:33 PM EDT Old retinal lesions - superiorly in the right eye. Normal left eye Elham Valdivia MD OPHTHALMOLOGY SE [employer] ORDERABLES * OCT OPTIC [id number] EYES (12/12/2017 3:33 PM EDT) Anatomical Region Laterality Modality Other Narrative 12/12/2017 3:33 PM EDT Right Eye Quality was good. Findings include normal observations. Temporal thickness was normal. Superior thickness was normal. Nasal thickness was normal. Inferior thickness was normal. Left Eye Quality was good. Findings include normal observations. Temporal thickness was normal. Superior thickness was normal. Nasal thickness was normal. Inferior thickness was normal. Notes Normal RNFL OU Elham Valdivia MD OPHTHALMOLOGY SE [employer] ORDERABLES * SENSORIMOTOR EXAM [IA SPECIAL EYE EXAM] - OU- BOTH EYES (12/12/2017 3:22 PM EDT) Anatomical Region Laterality Modality Other Narrative 12/12/2017 3:22 PM EDT Orthotropic in all directions of gaze Elham Valdivia MD OPHTHALMOLOGY SE [employer] ORDERABLES * AUTOMATED VISUAL FIELD - EXTENDED - OU- BOTH EYES (12/12/2017 3:22 PM EDT) Anatomical Region Laterality Modality Other Narrative 12/12/2017 3:22 PM EDT Right Eye Threshold was 24-2. Strategy was CAITLYN. Reliability was good. Findings include normal observations. Left Eye Threshold was 24-2. Strategy was CAITLYN. Reliability was good. Findings include normal observations. Elham Valdivia MD OPHTHALMOLOGY SE [employer] ORDERABLES documented in this encounter Visit Diagnoses Diagnosis Unspecified visual disturbance Retinal lesion Background retinopathy, unspecified documented in this encounter Care Teams Manager Therapy Relationship Specialty Start Date End Date Mai Lilly MD [address] [place] [address] PCP - General Family Medicine 12/03/15 documented as of this encounter
--- OUTSIDE RECORDS SUMMARY | 2024-03-13 13:22 | XMS_ITS | Encounter Summary ---
[place] [address] Care Team Providers Care Pet House Sitter Name Role Phone Mai Lilly MD Primary Care Provider [phone] Encounter Details Date Type Department Care Team (Late st Contact Info) Description 02/16/2017 Telephone [place] [id number] Arlette Nunez, RN Social History Tobacco Use Types Packs/Day Years Used Date Smoking Tobacco: Former Smokeless Tobacco: Never Sex and Gender Information Value Date Recorded Sex Assigned at Not on file Gender Identity Not on file Sexual Orientation Not on file documented as of this encounter Miscellaneous Notes * Telephone Encounter - Arlette Nunez, RN - 02/16/2017 4:11 PM EDT Isaiah calls in and left message that she is returning a call to Dr Walker regarding results. Message forwarded documented in this encounter Plan of Treatment Not on file documented as of this encounter Visit Diagnoses Not on filedocumented in this encounter Care Teams Pet House Sitter Relationship Specialty Start Date End Date Mai Lilly MD [address] [place] [address] PCP - General Family Medicine 12/03/15 documented as of this encounter
--- OUTSIDE RECORDS SUMMARY | 2024-03-13 13:22 | XMS_ITS | Encounter Summary ---
Author Organization [facility] Address [facility] [place] [address] Care Team Providers Care Safety Spec Name Role Phone Mai Lilly MD Primary Care Provider [phone] Encounter Details Date Type Department Care Team (Late st Contact Info) Description 05/11/2016 1:00 PM EST Office [place] [address] Cammie Gallo, [facility] PHYSICAL MEDICINE & [place] [address] Attention and concentration deficit Social History Tobacco Use Types Packs/Day Years Used Date Smoking Tobacco: Former Smokeless Tobacco: Never Sex and Gender Information Value Date Recorded Sex Assigned at Not on file Gender Identity Not on file Sexual Orientation Not on file documented as of this encounter Progress Notes * Cammie Gallo - 05/11/2016 1:00 PM EST Speech-Language Pathology Treatment session 05/11/16 Total Timed Code Treatment: 53 min for cognitive skills S: ?? Isaiah wrote out a synopsis of her current status, including level of fatigue, headaches, and strategies for accomplishing tasks that can't be done the old way. O: ?? Isaiah is s/p a concussive [...] of difficulty on targeted tasks from the [employer] computer software program. Most tasks require 100% accuracy and timed tasks have time requirements that vary from task to task. LTG is successful re-entry into the community with ability to return to some type of viable employment. ?? Concerning Isaiah's computer goal, she appropriately has noted that she can only focus on computertasks for three or so minutes at a time before starting to experience headaches. During a recent visit to her neurologist, Dr. Nacho Rubalcava, Dr. Rubalcava suggested either an occipital nerve block or trials of the medication Namenda. Isaiah asked if I thought it might be beneficial for her to try out the medication and possible nerve blocks and put our skilled ST and OT sessions on hold until she determines if she can receive some pain relief that will give her more cognitive rigor. ?? Isaiah was unable to complete additional computer tasks to any degree so we did not review her computer roster today. ?? Isaiah made a list of possible topics for the written language assignment given to her by BHUMIKA Rubin. Isaiah selected the topics Asking for Help and The Brain- Everything is Information, writing her thoughts on paper. With the second topic, it took Isaiah 13 minutes to write it, and she reported that her headache increased from level 1-5 on the pain scale during this writing task. ?? Processed some ideas for a potential documentary film or perhaps even a Chris Talk about Isaiah's experience with a head injury. Isaiah has baseline organizational skills that she can pull from to organize her thoughts. She talked about how her first step would be to interview medical editor as well as TBI survivors to help determine which head injury symptoms are universal and which, if any,are unique to Isaiah. ?? By the end of today's visit, Isaiah was reporting a headache of 7/10 on the pain scale. A/P: ?? While reporting overall improvement and feeling more and more like her old self, Isaiah also is experiencing more headache pain, especially when performing higher level cognitive tasks, including writing. After discussing her situation and thinking about our current cognitive goals, I supported her tentative plan to defer upcoming ST and OT visits until her pain is under better control. She has a couple of options as outlined previously. Will confer with OT Leah Estrella about this plan. If Worker's Comp supports the deferral of skilled services and then resumption when pain is better managed,will cancel upcoming ST visits and await Isaiah's go-ahead when her pain is under control. Cammie Gallo M.S., [facility] Pager#[phone] documented in this encounter Plan of Treatment Not on file documented as of this encounter Visit Diagnoses Diagnosis Attention and concentration deficit Attention or concentration deficit documented in this encounter Care Teams Safety Spec Relationship Specialty Start Date End Date Mai Lilly MD [address] [place] [address] PCP - General Family Medicine 12/03/15 documented as of this encounter
--- OUTSIDE RECORDS SUMMARY | 2024-03-13 13:22 | XMS_ITS | Clinical Summary ---
Author Organization [facility] [place] [address] Care Team Providers Care Production Graphic Designer Name Role Phone Mai Lilly MD Primary Care Provider [phone] Allergies Active Allergy Reactions Criticality Noted Date Comments Dextroamphetamine-Amphetamine High 2015 Severe headache Amantadine High 10/16/2015 Esophageal spasm Prednisone High 10/16/2015 Psychotic reaction Sulfa (Sulfonamide Antibiotics) Rash Medium 09/27 Medications Medication Sig Dispensed Refills Start Date End Date Status propranolol (INDERAL LA) 60 mg Capsule,Sustained Action 24 hr Take 20 mg by mouth daily. Active cyclobenzaprine (FLEXERIL) 10 mg Tablet Take 10 mg by mouth as needed for Muscle spasms. Active multivitamin (THERAGRAN) Tablet Take 1 tablet by mouth daily. Active calcium-vitamin D 500 mg(1,250mg) -200 unit Tablet Take 1 tablet by mouth daily. Active b complex vitamins Capsule Take 1 capsule by mouth daily. Active fish oil-omega-3 fatty acids 1,000 mg Capsule Take 2 g by mouth daily. Active magnesium 250 mg Tablet Take 1 tablet by mouth daily. Active UNABLE TO FIND Med Name: [place] Nena almendarez, 1 tablet daily Active TURMERIC (CURCUMIN MISC) 1 tablet by Misc.(Non-Drug; Combo Route) route daily. Active Active Problems Problem Noted Date Diagnosed Date Attention and concentration deficit 12/03/2015 Work related injury 10/11/2015 TBI (traumatic brain injury) 10/11/2015 Encounters Date Type Department Care Team Description 12/13/2023 Interpretation Only [facility] in [address] [address] Ayush Caputo MD from Last 3 Months Family History Medical History Relation Comments Glaucoma Brother 1 Glaucoma Brother 2 Glaucoma Father Macular Degeneration Neg Hx Retinal Detachment Neg Hx Relation Status Comments Brother 1 Brother 2 Father Social History Tobacco Use Types Packs/Day Years Used Date Smoking Tobacco: Never Smokeless Tobacco: Never Alcohol Use Standard Drinks/Week Comments Yes 0 (1 standard drink = 0.6 oz pur e alcohol) very little Sex and Gender Information Value Date Recorded Sex Assigned at Not on file Gender Identity Not on file Sexual Orientation Not on file Last Filed Vital Signs Vital Sign Reading Time Taken Comments Blood Pressure 133/82 02/09/2017 10:33 AM EDT Pulse 71 02/09/2017 10:33 AM EDT Temperature 36.8 ??C (98.2 ??F) 10/16/2015 10:00 AM E DT Respiratory Rate 16 10/16/2015 10:00 AM EDT Oxygen Saturation 99% 10/16/2015 10:00 AM EDT Inhaled Oxygen Concentration - - Weight 84.4 kg (186 lb) 02/09/2017 10:33 AM EDT Height 177.8 cm (5' 10) 02/09/2017 10:33 AM EDT Body Mass Index 26.69 02/09/2017 10:33 AM EDT Plan of Treatment Health Maintenance Due Date Last Done Comments CT Colonography 1954 Colonoscopy 1954 Colorectal Cancer Screening 1954 FIT DNA 1954 FIT 1954 Sigmoidoscopy (10 year) with FIT yearly 1954 Sigmoidoscopy 1954 Hepatitis C Screening 1972 Tetanus/Diphtheria/Pertussis Vaccines (1 - Tdap) 12/19 Breast Cancer Share Decision Needed 1994 Zoster vaccine (1 of 2) 2004 Advance Directive 2009 Bone Density Scan 12/20/2019 Pneumoccocal Vaccine: 65+ (1 of 1 - PCV) 12/20/2019 Covid-19 Vaccine (1 - season) 2024 Influenza (Flu) vaccine (1 o f 1 - Influenza standard series) 01/29/2024 Breast Cancer screening 12/12/2025 12/13/2023 Procedures Procedure Name Priority Date/Time Associated Diagnosis Comments MAMMO SCREENING CAD AND BIMAL BILATERAL Routine 12/13/2023 3:00 PM EDT from Last 3 Months Results * Mammo Screening Cad and Bimal Bilateral (12/13/2023 3:00 PM EDT) PT CLASS O RAD ADMITDTTM [id number] DH RAD PT RAD INFO [id number]^LECLER C^MCKALYN^G RAD EXAM DESC MADDSCTO^MM SCREENING BILAT MAMMO W BIMAL W CAD^RIS RAD WORKSTATION ID [id number] RAD Anatomical Region Laterality Modality Breast Bilateral Mammography Impressions 12/14/2023 8:34 PM EDT No mammographic evidence of malignancy. Routine screening mammography is recommended. FINAL ASSESSMENT: BI-RADS Category 1: Negative * ??Regular screening mammograms starting at age 40 reduce the risk of from breast cancer. * ??Individuals should discuss the risks and benefits with their provider to determine their preferred breast cancer screening schedule, and at what age screening should stop. * ??Individuals should report any breast changes to a health care provider right away. * ??Some Individuals, because of their family history, a genetic tendency, or other factors, should consider being screened with annual breast MRI as well as with mammograms. * ??Screening mammography may not detect 10-15% of?breast cancers. Thank you for letting us participate in the care of this patient. ??If you are a health care provider and have any questions regarding this report, please contact the number below. ??For patients who have questions please contact the health rn transitional care that requested your imaging first. ? Electronically signed by: Dennise Gresham MD, [facility] ([phone]), at 12/14/2023 8:34 PM Narrative 12/14/2023 8:34 PM EDT EXAMINATION: MM SCREENING BILAT MAMMO W BIMAL ??W CAD REASON FOR EXAM: Screening TECHNIQUE: CC and MLO views were obtained of BOTH breasts. 2D and 3D tomosynthesis images were obtained. COMPARISON: Comparison was made to the prior relevant examinations. BREAST DENSITY: The breast tissue is heterogeneously dense, which may obscure small masses. FINDINGS: There are no suspicious microcalcifications, masses, or areas of distortion. Stable appearance. Procedure Note Dennise Gresham MD - 12/14/2023 EXAMINATION: MM SCREENING BILAT MAMMO W BIMAL W CAD REASON FOR EXAM: Screening TECHNIQUE: CC and MLO views were obtained of BOTH breasts. 2D and 3D tomosynthesis images were obtained. COMPARISON: Comparison was made to the prior relevant examinations. BREAST DENSITY: The breast tissue is heterogeneously dense, which may obscure smallmasses. FINDINGS: There are no suspicious microcalcifications, masses, or areas ofdistortion. Stable appearance. IMPRESSION No mammographic evidence of malignancy. Routine screening mammography is recommended. FINAL ASSESSMENT: BI-RADS Category 1: Negative * Regular screening mammograms starting at age 40 reduce the risk ofdeath from breast cancer. * Individuals should discuss the risks and benefits with their providerto determine their preferred breast cancer screening schedule, and at whatage screening should stop. * Individuals should report any breast changes to a health care providerright away. * Some Individuals, because of their family history, a genetic tendency,or other factors, should consider being screened with annual breast MRI aswell as with mammograms. * Screening mammography may not detect 10-15% of?breast cancers. Thank you for letting us participate in the care of this patient. If youare a health care provider and have any questions regarding this report,please contact the number below. For patients who have questions please contactthe health rn transitional care that requested your imaging first. Electronically signed by: Dennise Gresham MD, [facility]([phone]), at 12/14/2023 8:34 PM Ayush Caputo MD IMG MAMMO ORDERABLE S from Last 3 Months Care Teams Production Graphic Designer Relationship Specialty Start Date End Date Mai Lilly MD [address] [place], [place] [address] PCP - General Family Medicine 12/03/15
--- OUTSIDE RECORDS SUMMARY | 2024-03-13 13:22 | XMS_ITS | Encounter Summary ---
Author Organization [facility] Address [facility] [place] [address] Care Team Providers Care Crude Unit Operator Name Role Phone Mai Lilly MD Primary Care Provider [phone] Encounter Details Date Type Department Care Team (Latest Contact Info) Description 11/22/2016 10:00 AM EDT Office [place] [address] Sheila Trujillo, SPIN TABLE OPERATOR Attention and concentration deficit Social History Tobacco Use Types Packs/Day Years Used Date Smoking Tobacco: Former Smokeless Tobacco: Never Sex and Gender Information Value Date Recorded Sex Assigned at Not on file Gender Identity Not on file Sexual Orientation Not on file documented as of this encounter Progress Notes * Sheila Trujillo, SPIN TABLE OPERATOR - 11/22/2016 10:00 AM EDT Speech-Language Pathology Treatment session 10/19/16 Total Timed Code Treatment: 55 min for cognitive skills Worker's Comp ?? S / O: ?? 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 Encouraged Isaiah to continue to stretch her limits in effort to increase her mental endurance, recommended attempting to shift schedule to 3 hours from 2 in next two weeks. ?? At home, planning and organization remains a challenge and a source of frustration to her, as organization and multitasking was one of her great strengths previously. Has had difficulty w/ organizing her closet and feels overwhelmed by the task. Isaiah demonstrating good insight in her need to have and create structure to be able to complete tasks. She does report improvements in her abilities to get more done around the house more efficiently, and is now able to move between tasks more easily, able to switch gears now. Discussed several organizational supports. Reviewed website for [employer] which supplies reminders, supports, suggestions to help get and keep home organized and clean. Isaiah plans to subscribe and use darrin to help her accomplish more at home in coming weeks. ?? Isaiah is now realizing how much negative impact her visuo-spacial deficits are having on her ability to get things done (ex: reading a map, planning a garden). She continues working on [employer] as well as Brain Yoga and Brain [employer] computer cognitive games/programs. In addition, suggestion has been made for her to attempt drawing or painting, however, she finds this intimidating as she has never been a good artist. I suggested working w/ mosaics, collage, or other art mediums, to achievesame goal, which Martinez thought might work better for her. Also provided ideas for practicing visual spatial skills in home and community environment w/ functional tasks. ?? Isaiah provided me w/ her email [email or web address] to maintain communication ?? A: ?? 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 Mild high level cognitive-linguistic deficits which decrease Isaiah's ability to function in home, community, and at work place at this time. P: ?? Isaiah has begun seeing Occupational Medicine group in [facility] as well as working w/ vocationalrehab. Hopes to transfer all her care to that team as it is closer to her. Isaiah's ultimate goal is to return to work, and feels need for ongoing support to move forward, which I agree with, ??She would continue to benefit from cognitive-linguistic therapy at this time to support this imagery intelligence goal. Sheila Trujillo MA, CCC-SPIN TABLE OPERATOR [facility] Rehabilitation Medicine [phone] pager:# [phone] [email or web address] ? documented in this encounter Plan of Treatment Not on file documented as of this encounter Visit Diagnoses Diagnosis Attention and concentration deficit Attention or concentration deficit documented in this encounter Care Teams Crude Unit Operator Relationship Specialty Start Date End Date Mai Lilly MD [address] [place] [address] PCP - General Family Medicine 12/03/15 documented as of this encounter
--- OUTSIDE RECORDS SUMMARY | 2024-03-13 13:22 | XMS_ITS | Encounter Summary ---
Author Organization [facility] Address [facility] [place] [address] Care Team Providers Care Ethnographer Name Role Phone Mai Lilly MD Primary Care Provider [phone] Encounter Details Date Type Department Care Team (Late st Contact Info) Description 03/03/2016 1:00 PM EDT Office [place] [address] Cammie Gallo, CLINICAL REVIEW NURSE [facility] DR PHYSICAL MEDICINE & [place] [address] Attention and concentration deficit Social History Tobacco Use Types Packs/Day Years Used Date Smoking Tobacco: Former Smokeless Tobacco: Never Sex and Gender Information Value Date Recorded Sex Assigned at Not on file Gender Identity Not on file Sexual Orientation Not on file documented as of this encounter Progress Notes * Cammie Gallo - 03/03/2016 1:00 PM EDT Speech-Language Pathology Treatment session 03/03/16 Total Timed Code Treatment: 62 min for cognitive skills S: ?? Isaiah reported that information processing is still quite challenging for her. She espouses slower visual as well as auditory processing skills. ?? Isaiah reported a mild headache today. O: STG is successful completion of all four levels of difficulty on targeted tasks from the [email or web address] com computer software program. Most tasks require 100% accuracy and timed tasks have time requirements that vary from task to task. LTG is successful re-entry into the community with ability to return to some type of viable employment. ?? Isaiah reviewed her trip to [place] and [facility] and revealed that although the trip generally went quite well, she was totally exhausted when she returned home, needing extensive down time. 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 Per Isaiah, although completely supported by family and friends during her trip, planning it and keeping track of her daily schedule, including adjusting priorities, took all of her brain power to pull off. ?? Concerning setting priorities, Isaiah expressed the fact that she would like to harvest apples and[employer]ravoaviake Quantum OP[employer]ney this fall, but if she is to be successful with that task, she will not be able to spend as much time on the [employer] computer program as the tasks are quite complex. That said, Isaiah admitted to enjoying the challenges provided by the tasks and feeling that she is making progress. ?? Isaiah currently is on level 2 of Serial Addition under the Executive Function panel of the computer program, level 2 of Simply Logical under Problem Solving (she passed the first trial at level 2),and at level 4 of Follow My Commands (Written) under the Communication panel. She should be fine when advanced to the next task after Follow My Commands (Written) because it is essentially the same task only with auditory rather than visual commands. Isaiah reported that the hint that I provided her to advance to a higher level of Simply Logical worked well and resulted in significantly reducing her frustration with this task. A: ?? Isaiah was successful overall concerning her trip to [place] and surrounding areas but was quite fatigued when she returned, necessitating many days of total rest. Isaiah continues to report reduced visual and auditory processing speed but feels that she is making progress on the challenging cognitive computer tasks assigned. Her current levels as described previously are indicative of progress and current assigned tasks appear to be appropriate for Isaiah. Isaiah is able to ascertain when she can push forward and when she needs to lie low and regain her cognitive rigor. P: ?? Adjust computer program roster as warranted to best address Isaiah's individual needs. ?? Review computer items completed. Check progress. ?? Continue with one hour ST visits every two weeks, dovetailing with OT as much as possible. Currently, Isaiah has appts scheduled through April 13. ?? Isaiah agreed with this plan. Cammie Gallo M.S., CCC-CLINICAL REVIEW NURSE Pager#[phone] documented in this encounter Plan of Treatment Not on file documented as of this encounter Visit Diagnoses Diagnosis Attention and concentration deficit Attention or concentration deficit documented in this encounter Care Teams Ethnographer Relationship Specialty Start Date End Date Mai Lilly MD [address] [place] [address] PCP - General Family Medicine 12/03/15 documented as of this encounter
--- OUTSIDE RECORDS SUMMARY | 2024-03-13 13:22 | XMS_ITS | Encounter Summary ---
Author Organization [facility] [place] [address] Care Team Providers Care Traffic Sergeant Name Role Phone Mai Lilly MD Primary Care Provider [phone] Encounter Details Date Type Department Care Team (Late st Contact Info) Description 12/13/2023 Interpretation Only in [facility] [address] [place] [id number] Pascale Caputo MD [address] [place] [address] Social History Tobacco Use Types Packs/Day Years Used Date Smoking Tobacco: Never Smokeless Tobacco: Never Alcohol Use Standard Drinks/Week Comments Yes 0 (1 standard drink = 0.6 oz pur e alcohol) very little Sex and Gender Information Value Date Recorded Sex Assigned at Not on file Gender Identity Not on file Sexual Orientation Not on file documented as of this encounter Plan of Treatment Not on file documented as of this encounter Procedures Procedure Name Priority Date/Time Associated Diagnosis Comments MAMMO SCREENING CAD AND BIMAL BILATERAL Routine 12/13/2023 3:00 PM EDT documented in this encounter Results * Mammo Screening Cad and Bimal Bilateral (12/13/2023 3:00 PM EDT) PT CLASS O RAD ADMITDTTM [id number] RAD PT RAD MD INFO [id number]^STEVIE C^PASCALE^G RAD EXAM DESC MADDSCTO^MM SCREENING BILAT MAMMO W BIMAL W CAD^RIS RAD WORKSTATION ID [id number] RAD Anatomical Region Laterality Modality Breast Bilateral [...] who have questions please contact the health intensive care anaesthetist that requested your imaging first. ? Electronically signed by: Dennise Gresham MD, [facility] ([phone]), at 12/14/2023 8:34 PM Narrative 12/14/2023 8:34 [...] patients who have questions please contactthe health intensive care anaesthetist that requested your imaging first. Electronically signed by: Dennise Gresham MD, [facility]([phone]), at 12/14/2023 8:34 PM Pascale Caputo MD IMG MAMMO ORDERABLE S documented in this encounter Visit Diagnoses Not on filedocumented in this encounter Care Teams Traffic Sergeant Relationship Specialty Start Date End Date Mai Lilly MD [address] [place] [address] PCP - General Family Medicine 12/03/15 documented as of this encounter
--- OUTSIDE RECORDS SUMMARY | 2024-03-13 13:22 | XMS_ITS | Encounter Summary ---
Author Organization [facility] Address [facility] [place] [address] Care Team Providers Care Retail Client Manager Name Role Phone Mai Lilly MD Primary Care Provider Encounter Details Date Type Department Care Team (Late st Contact Info) Description 04/13/2016 3:30 PM EST Office [place] [address] Cammie Gallo, AMMONIA TECHNICIAN [facility] DR PHYSICAL MEDICINE & [place] [address] Attention and concentration deficit Social History Tobacco Use Types Packs/Day Years Used Date Smoking Tobacco: Former Smokeless Tobacco: Never Sex and Gender Information Value Date Recorded Sex Assigned at Not on file Gender Identity Not on file Sexual Orientation Not on file documented as of this encounter Progress Notes * Cammie Gallo - 04/13/2016 3:30 PM EST Speech-Language Pathology Treatment session 04/13/16 Total Timed Code Treatment: 53 min for cognitive skills S: ?? Isaiah reported cognitive success on her most recent trip, which is another indication that she ismaking progress. The success of this trip included less need for prep time preceding the trip. ?? Isaiah touts cranio-sacral therapy and acupuncture. ?? Isaiah provided feedback regarding my group e-mails sent as reminders prior to our TBI support group meetings. Isaiah reminded me to send the e-mails bcc (blind carbon copy). ?? Isaiah also touted the Love Your Brain Yoga workshop that she is currently attending (she has one remaining visit). She mentioned that the instructor played music, which was not well-tolerated by Isaiah as well as other participants during instructional time. Noise filters are still needed to block out certain types of ambient noise. O: ?? Isaiah is s/p a concussive [...] of difficulty on targeted tasks from the Implisit computer software program. Most tasks require 100% accuracy and timed tasks have time requirements that vary from task to task. LTG is successful re-entry into the community with ability to return to some type of viable employment. ?? Current status of computer software tasks, per my review after this visit: Isaiah passed level 1 of Serial Addition and is currently on level 2. Isaiah passed level 1 of Simply Logical and needs one more pass to get to level 2. With regard to Follow My Instructions (Written), Isaiah needs two more passes at level 3 to reach level 4. ?? Isaiah is observing faster overall processing time, especially when she is well rested. Isaiah's cognitive function is variable depending upon how well she sleeps. ?? Isaiah shared her observations about her HEP performance. She is very insightful and observant so has been able to process what variables are involved in her cognitive successes as well as challenges. She has acquired meta- cognitive skills that appear to be serving her well. A: ?? Continued progress towards stated goals is evident. Isaiah is appreciative of both skilled ST and OT services and I am impressed with Isaiah's cognitive breakthroughs and high level of meta-cognitive awareness. P: ?? Adjust computer program roster as warranted to best address Isaiah's individual needs. ?? Review computer items completed. Check progress. ?? OT and ST to be scheduled on the same day and include four additional visits every two weeks starting the week of 05/11. ?? Isaiah agreed with this plan. Cammie Gallo M.S., CCC-AMMONIA TECHNICIAN Pager#[phone] documented in this encounter Plan of Treatment Not on file documented as of this encounter Visit Diagnoses Diagnosis Attention and concentration deficit Attention or concentration deficit documented in this encounter Care Teams Retail Client Manager Relationship Specialty Start Date End Date Mai Lilly MD [address] [place] [address] PCP - General Family Medicine 12/03/15 documented as of this encounter
--- OUTSIDE RECORDS SUMMARY | 2024-03-13 13:22 | XMS_ITS | Encounter Summary ---
Author Organization [facility] [place] [address] Care Team Providers Care Contour Grinder Name Role Phone Mai Lilly MD Primary Care Provider [phone] Encounter Details Date Type Department Care Team (Latest Contact Info) Description 10/11/2016 2:00 PM EDT Office [place] [address] Leah Estrella, OT Attention and concentration deficit; [...] Progress Notes * Leah Estrella, OT - 10/11/2016 2:00 PM EDT OCCUPATIONAL THERAPY PROGRESS NOTE Visit 10 REFERRAL SOURCE: Darlin Richardson DIAGNOSIS: 1. Attention [...] symptoms and referred to occupational therapy and MAINTENANCE SUPERVISOR for evaluation and treatment. Isaiah Man presents [...] TREATMENT TODAY: Isaiah saw Dr. Robertson in [place] an director zone. She was prescribed prism reading glasses. She has been doing better with reading due to the glasses. Isaiah was seen by a chiropractor- she has been getting adjustments to C1 and C2. She reports that these adjustments have helped tremendously. She went to [place] for a week-she used noise cancelling headphones (for the jet engine noise); shetend was able to drive out of the city for 1.5hrs. 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 Isaiah is also working with vocational rehab (who is hired by the [facility]). The possible plan is a month of volunteer work, one month of job search, and the third month is supported work. She has another ELKE planned for November 01-occupational medicine who will complete the return to work. She has been using the peer counselor for the ipad and has been able to tolerate 30 mins on the computer. OT had suggested Pi[employer]ronix dictation for verbal dictation of thoughts in prep for writing a book onTBI- Isaiah has been writing more and is [...] typing (which she reports is a challenge). The Complex Task Performance Assessment: The CPTA a complex, multi-tasking activity that simulates work activities completed in a library including: inventory, problem solving, sorting through the card catalogue, answering and responding tophone calls, keeping track of time, and correcting addresses in a master data base. Complex Task Performance Assessment Final Score Grid Category Scoring description Total 1. Inefficienies Total number of inefficiencies observed 0 2. Rule breaks Total number of rule breaks regardless of category 1 3. Interpretation failures Total number of interpretation failures 0 4. Task Failures Total Did not attempt (x2) 0 Stated complete (x2) 0 Time limit reached 0 5. Inventory control accuracy Total number of items incorrect blank items on the inventory control sheet (out of 15) 3 Total for all scores 4 Isaiah forgot to tell OT that Sondra called, she made an addition mistake when counting The [employer] title. She correctly checked the database and was pleased with her ability to complete the task-her headache increased from 2 to 5; but she was able to complete the work for a short period-required 20mins 15 seconds to complete. ASSESSMENT: Isaiah Man is making progress and believes that OT and MAINTENANCE SUPERVISOR are helpful for her recovery. Isaiah plans to take a short break from OT while she is receiving treatment through her neurologist for her headaches. Isaiah was able to complete the CPTA with a score of 4 (where the lower the score the better). She made a counting mistake but normally would have re-checked it. Isaiah had an incre ased headache but was able to complete this highly complex task which she self reports she would not have been able to complete even a few months ago. Isaiah has met 2 of her goals. Isaiah continues to be motivated and her further goals are to improve her ability to process information, self pace, multi-task, tolerate screen time, in prep for return to work (notably her prior job was dissolved and ptwants to seek new employment when able). These impairments have a significant impact on the patient's performance in the following areas of occupation: BADLs, IADLs, rest/sleep, education, work, leisure, driving, and social participation. Next visit: Work related tasks- goal setting and + employment skills (math tasks are not challenging) Dictation software Look at tbi booklet Wildlife Policy Professional Goals (to be met by discharge): Date [...] will complete a 3 stop functional scavenger thonrton and recall 75% of items after 10 [...] Short Term Goals (to be met by 10th visit): extend to 12 visit Date Goal Met: Isaiah Man will complete [...] 3 visits to progress toward short and fpc goals. for Cognitive retraining attention, sequencing, problem [...] site documented in this encounter Care Teams Contour Grinder Relationship Specialty Start Date End Date Mai Lilly MD [address] [place] [address] PCP - General Family Medicine 12/03/15 documented as of this encounter
--- OUTSIDE RECORDS SUMMARY | 2024-03-13 13:23 | XMS_ITS | Encounter Summary ---
Author Organization [facility] [place] [address] Care Team Providers Care Cultural Centre Manager Name Role Phone Nacho Rubalcava MD Primary Care Provider [phone] Reason for Visit * Consultation (Routine) - Closed Specialty Diagnoses / Procedures Referred By Chantel t Referred To Contact Neurology Diagnoses cognitive rehab for concussion Nacho Rubalcava MD [address] [place] [id number] [facility] Neu[facility] [address] [place] [phone] Referral ID Status Reason Start Date Expiration Date V isits Requested Visits Authorized [id number] Closed Connection Center 07/17/2015 07/16/2016 1 1 Encounter Details Date Type Department Care Team (Late st Contact Info) Description 10/16/2015 10:00 AM EDT Office [place] [phone] Melinda Dennis MD [facility] [place] [address] Post concussion syndrome Social History Tobacco Use Types Packs/Day Years Used Date Smoking Tobacco: Former Smokeless Tobacco: Never Sex and Gender Information Value Date Recorded Sex Assigned at Not on file Gender Identity Not on file Sexual Orientation Not on file documented as of this encounter Progress Notes * Melinda Dennis MD - 10/16/2015 3:25 PM EDT The patient is a 59 year old female who is seen in consultation at the request of Dr Nacho Ortiz. The patient is being evaluated for post concussive syndrome. She is being evaluated in conjunction with Darlin Richardson APRN, in the multi-disciplinary TBI clinic. Please see Lala's note for further details. I am providing a brief, focused neurological examination and recommendations. She had a fall down a set of stairs, hit her head, suffered a concussion, and had some orthopedic injuries. She has been followed by Dr Nacho Rubalcava and is here today to have her rehabilitation plan addressed. Her greatest concerns are that her information processing speed and comprehension, as well as her ability to multitask are diminished since the concussion. She has been doing on onlinecognitive training, has recently started some neuro bio feedback (also online, I believe) and feelsshe has made some gains, but remains concerned and frustrated with her cognitive deficits. She notes she can read for 10-15 pages (light reading), but notes that her cognition shuts down after 10-15 pages - she notes this is strictly a cognitive problem, and denies nay problems with visual disturbances with cognitive exertion (no diplopia, no blurring of vision, no eye pain) and denies any headaches or dizziness with cognitive exertion. She feels a sense of mental fatigue, and with this comesspeech hesitancies and stuttering (which I witnessed at the end of our visit). She also feels very low energy and great fatigue that worsens over the course of the day. She knowsshe snores as she has woken herself up snoring and has to sleep on her side to get any decent sleep. She's tried amantadine, a stimulant (adderal, i believe) and effexor without relief. ` The patient admits to the following neurological symptoms, which will be addressed further in the note below. ??? Headache - relieved tremendously with propranolol, at a level where she can tolerate them. ??? Double vision - none ??? Blurry vision - none ??? Problems tolerating noise - none ??? Problems tolerating light - none ??? Poor balance - none ??? Bodily aches and pains - right heel pain, leg and hip pain ??? Feeling cognitively/mentally ???foggy? Decreased cognitive processing speed ??? Difficulty with attention and focus ??? Short term memory problems ??? Difficulty with judgment, reason ??? Difficulty with problem solving ??? Word finding problems ??? Stuttering ??? Mental and cognitive fatigue ??? Physical fatigue ??? Trouble sleeping A 12 point review of systems was performed and was negative except for that mentioned in the HPI. Medical history - concussion Social History: No history of tobacco use, no current or past history of alcohol abuse or dependence, no h/o illicit drugs. Family History: No family history of cognitive decline or other neurodegenerative illnesses Allergies/sensitivities: prednisone, sulfa Meds: Turmeric, propranolol, magnesium, B complex, MVI, lions erickson, vitamin D, fish oil General Physical Examination 136/82, P 69 Appearance: The patient is healthy, in no distress, and appears comfortable. Head: Atruamatic. Normocephalic. Neck: Normal range of movements. Abdomen: non distended Extremities: Normal in appearance, no edema. Skin: No rashes or lesions Neurological Examination Mental status: Mood and affect are appropriate. Speech is fluent and appropriate, comprehension fully intact. Attention, concentration, and praxis are intact. Fund of knowledge is normal for educational level. Cranial nerves: Visual camacho are intact, extra-ocular movements intact, pupils equal and reactive to light, face and smile are symmetric, hearing is intact, tongue protrudes midline, palate elevatesfully, no dysarthria. Musculoskeletal: Normal power throughout all muscle groups. Normal tone and normal range of motion. Sensory: Sensory exam intact to light touch throughout Cerebellar/coordination: finger to nose intact. Normal fine motor movements. Gait and station: Gait is normal and steady, Romberg negative. Deep Tendon reflexes: DTRs are symmetric and normoactive throughout. Impression and recommendations: 59 year old female who is seen in consultation at the request of Daniel Ortiz. The patient is being evaluated for post concussive syndrome. Her neurological examination is normal, and she does not have visual disturbances and her headaches have improved, which will likely make her a great candidate for speech therapy or OT. I think her improvement thus far is reassuring and she can continue to get better. There is no good evidence behind online or computer based cognitive training, unless they are used under the direction of a cognitive or occupationaltherapist. In addition, face to face therapy with a human will better prepare her for returning to work. She is more than willing to come here to meet with Cammie Gallo for speech therapy and recomendations to continue at home. She may also benefit from a functional capacity evaluation and ultimately a referral to vocational rehabilitation. Lala Richardson APRN, will likely comment further on these in her note. Given her fatigue and mental fogginess (and snoring), I strongly recommended that she seek a sleep study and sleep consultation. She has sensitivity to conventional medicines, and I see no reason for her not to see her naturopathic clinician. Follow up with me anytime needed. documented in this encounter Plan of Treatment Not on file documented as of this encounter Visit Diagnoses Diagnosis Post concussion syndrome Postconcussion syndrome documented in this encounter Care Teams Cultural Centre Manager Relationship Specialty Start Date End Date Nacho Rubalcava MD PCP - General Neurology 10/16/15 12/02/15 documented as of this encounter
--- OUTSIDE RECORDS SUMMARY | 2024-03-13 13:23 | XMS_ITS | Encounter Summary ---
Author Organization [facility] Address [address] [place] [address] Care Team Providers Care Roulette Dealer Name Role Phone Unavailable Primary Care Provider Unavailabl e Encounter Details Date Type Department Care Team (Late st Contact Info) Description 07/14/2004 Results Only [facility] [address] [place] [address] Edgard Fraser MD [address] [place] [id number] Social History Tobacco Use Types Packs/Day Years Used Date Smoking Tobacco: Never Assessed Sex and Gender Information Value Date Recorded Sex Assigned at Not on file Gender Identity Not on file Sexual Orientation Not on file documented as of this encounter Plan of Treatment Not on file documented as of this encounter Procedures Procedure Name Priority Date/Time Associated Diagnosis Comments CYTOPATHOLOGY Routine 07/14/2004 0:00 EST documented in this encounter Results * CYTOPATHOLOGY (07/14/2004 0:00 EST) Pathology Report: CYTOPATHOLOGY REPORT Reports generated via electronic interface contain original data; however they are lacking the format of the original report. Caution should be taken when reading/interpreti ng unformatted reports. Name: ? VICKY JONES ? Accession #: ? [id number] : ? 1955 (Age: 48) ??F ?Collect Date: ? 07/14/2004 Location: ? [facility] ? Receive Date: ? 07/20/2004 Provider: ?EDGARD FRASER MD Copy to: ? Specimen/Source: ?ThinPrep Pap Test, Cervix/Endocervix Last Menstrual Period: ? 07/10/04 Other: ? HPVA - HPV testing requested if ASC-US on the current ThinPrep Pap test. ? SPECIMEN ADEQUACY ? Satisfactory for Evaluation - transformation zone component present GENERAL CATEGORIZATION ? Negative for Intraepithelial Lesion or Malignancy ? Document reviewed and electronically signed by: ? DAVID BARRIOS MD ? Report Date: ??07/24/2004 15:18 End of Report ASHLEY JOY 07/14/2004 07/20/2004 Edgard Fraser MD PATHOLOGY [facility] [address] [place] [address] documented in this encounter Visit Diagnoses Not on filedocumented in this encounter
--- OUTSIDE RECORDS SUMMARY | 2024-03-13 13:23 | XMS_ITS | Encounter Summary ---
[place] [address] Care Team Providers Care Search Advertising Strategist Name Role Phone Mai Wong MD Primary Care Provider [phone] Reason for Referral * Speech Therapy (Routine) - Closed Specialty Diagnoses / Procedures Referred By Contaleena t Referred To Contact Speech Pathology / Speech Therapy Diagnoses TBI (traumatic brain injury), without loss of consciousness, subsequent encounter Work related injury Gray Richardson [facility] [place] [address] [facility] Patient Support Partner [facility] [place] [address] Referral ID Status Reason Start Date Expiration Date V isits Requested Visits Authorized [id number] Closed Evaluate and Treat 11/17/2015 11/16/2016 1 1 * Occupational Therapy (Routine) - Closed Specialty Diagnoses / Procedures Referred By Contac t Referred To Contact Occupational Therapy Diagnoses TBI (traumatic brain injury), without loss of consciousness, subsequent encounter Work related injury Gray Richardson [facility] [place] [address] [facility] [place] [address] Referral ID Status Reason Start Date Expiration Date V isits Requested Visits Authorized [id number] Closed Evaluate and Treat 11/17/2015 11/16/2016 1 1 Reason for Visit * Reason Comments Establish Care cognitive rehab for concussion Encounter Details Date Type Department Care Team (Late st Contact Info) Description 10/16/2015 10:00 AM EDT Office Visit General Surgery at [facility] [place] [address] Gray Richardson, [facility] [place] [address] TBI (traumatic brain injury), without loss of [...] Sign Reading Time Taken Comments Blood Pressure 136/82 10/16/2015 10:00 AM EDT Pulse 69 10/16/2015 10:00 AM EDT Temperature 36.8 ??C (98.2 ??F) 10/16/2015 10:00 AM E DT Respiratory Rate 16 10/16/2015 10:00 AM EDT Oxygen Saturation 99% 10/16/2015 10:00 AM EDT Inhaled Oxygen Concentration - - Weight 84.6 kg (186 lb 9.6 oz) 10/16/2015 10:00 AM EDT Height 177.8 cm (5' 10) 10/16/2015 10:00 AM EDT Body Mass Index 26.77 10/16/2015 10:00 AM EDT documented in this encounter Progress Notes * Gray Richardson, CLOTH CUTTER - 10/24/2015 9:02 AM EDT Interdisciplinary TBI Assessment Clinic Also seen today by Melinda Dennis MD Encounter Date: 10/16/15 Chief Complaint: Visit for rehabilitation needs s/p head trauma Date of Injury: 02/15/14, fall Isaiah Man is a 59 y.o. female was referred by Dr Wong and states that the reason for this visit or primary concern to be addressed today is to address her information processing deficits This is a work-related injury Other relevant PMH: No past medical history on file. Identified problems for this visit: 1. TBI (traumatic brain injury), without loss of consciousness, subsequent encounter Referral to Occupational Therapy Referral to Speech Therapy 2. Work related injury Referral to Occupational Therapy Referral to Speech Therapy Allergies and Medications: Allergies Allergen Reactions ??? Adderall [Dextroamphetamine-Amphetamine] Severe headache ??? Amantadine Esophageal spasm ??? Prednisone Psychotic reaction ??? Sulfa (Sulfonamide Antibiotics) Rash No current outpatient prescriptions on file prior to visit. No current facility-administered medications on file prior to visit. Social History: Social History Substance Use Topics ??? Smoking status: Former Smoker ??? Smokeless tobacco: Never Used ??? Alcohol use None Subjective: Symptom checklist (in the last week) 0=none, 1-2=mild, 3-4=moderate, 5-6=severe Date 10/15 Comments Physical symptoms headache 3 nausea 0 vomiting 0 balance problem 0 dizziness 0 visual problems 0 fatigue 4 sensitivity to light 0 sensitivity to sound / noise 5 numbness / tingling 0 pain other than headache 4 Cognitive symptoms feeling mentally foggy 3 feeling slowed down 4 difficulty concentrating 1 difficulty remembering 1 Sleep drowsiness 0 sleeping less than usual 0 sleeping more than usual 0 trouble falling asleep 4 Emotional symptoms irritability 0 sadness 2 nervousness 2 feeling more emotional 1 (y) Symptoms are worse with cognitive activity (y) Symptoms are worse with physical activity Pain: 4, right foot Additional ROS: Isaiah Man denies recent illness, and has had no new injury. Objective: Isaiah Man is a very pleasant, intelligent woman who is alert, oriented to person, place, time and condition. she makes good eye contact and is able to engage in a linear and logical conversation about the injury symptoms and plan of care. she is not tangential. Attention and concentration is appropriate for the context of this evaluation. she can follow multi-step directions, retain new information and demonstrate the ability to problem solve hypothetical scenarios. Sx checklist 10/15 Physical Symptoms: 16 Cognitive Symptoms: 9 Sleep Disturbance: 4 Emotional Dysregulation: 5 Total Score: 34 PHQ-9 10/15 Item #1 > 1 n Item #2 > 1 n # of items 1-8 answered > 1 1 Item # 9 answer 0 Total Score 6 PHQ-9 Interpretation Provisional Diagnosis Treatment Recommendation Total Score 5-9 Possible risk Education, exercise, counseling -14 15-19 >20 Assessment / Recommendations: Isaiah Man is a 59 y.o. female who is seen for symptoms following work-related fall with brain injury. She would benefit from additional assessment and treatment for higher level processing deficits and cognitive fatigue / endurance. This will also help in determining appropriate return to work capacity. Not at [facility]. Undetermined permanency. We have provided education about the prevalence, etiology and natural recovery of post concussive symptoms, especially headache, vision changes, fatigue, irritability and dizziness. We have discussedhow to manage symptoms with good nutrition, hydration, sleep hygiene, routine, control of stimulation in the environment and removal of additional irritants such as alcohol. Discussed the importance of stress management and risk for poor judgment when making demands for performance from the symptomatic brain. Encouraged safe, light physical activity. We have recommended the following Additional imaging to better characterize this injury Additional blood work to consider other causes of fatigue or assess for pituitary dysfunction Medication trial for symptom management x Rehabilitation services OT and DATER ASSEMBLER Additional Specialty consults see Dr Dennis's notes - possible sleep study Follow up visit / return to clinic: 3 mo New Patient visit: 15 of this 20 minute visit (>than 50%) was spent on counseling and discussionrelated to recovery from traumatic brain injury and rehabilitation plan as discussed above. Lala Richardson APRN, [facility] Trauma Division, Section of Trauma and Acute Care Surgery Department of General Surgery, [facility] CC: MAI WONG MD documented in this encounter Miscellaneous Notes * Addendum Note - Gray Richardson APRN - 11/17/2015 7:09 AM EDTAddended by: GRAY RICHARDSON on: 11/17/2015 07:09 AM Modules accepted: Orders documented in this encounter Plan of Treatment Scheduled Referrals Name Type Priority Associated Diagnoses Order Schedule Referral to Occupational Therapy Outpatient Referral Routine TBI (traumatic brain injury), without loss of consciousness, subsequent encounter Work related injury Ordered: 11/17/2015 Referral to Speech Therapy Outpatient Referral Routine TBI (traumatic brain injury), without loss of consciousness, subsequent encounter Work related injury Ordered: 11/17/2015 documented as of this encounter Visit Diagnoses Diagnosis TBI (traumatic brain injury), without loss of consciousness, subsequent encounter Work related injury Injury, other and unspecified, unspecified site documented in this encounter Care Teams Search Advertising Strategist Relationship Specialty Start Date End Date Mai Wong MD [facility] [address] [place] [address] PCP - General Family Medicine 12/03/15 documented as of this encounter
--- OUTSIDE RECORDS SUMMARY | 2024-03-13 13:23 | XMS_ITS | Encounter Summary ---
Author Organization [facility] Address [facility] [place] [address] Care Team Providers Care Family Practice Nurse Practitioner Name Role Phone Mai Lilly MD Primary Care Provider [phone] Encounter Details Date Type Department Care Team (Late st Contact Info) Description 01/05/2016 11:00 AM EDT Office Visit [place] [address] Cammie Gallo, AUTOMATION ANALYST [facility] [place] [address] Attention and concentration deficit Social History Tobacco Use Types Packs/Day Years Used Date Smoking Tobacco: Former Smokeless Tobacco: Never Sex and Gender Information Value Date Recorded Sex Assigned at Not on file Gender Identity Not on file Sexual Orientation Not on file documented as of this encounter Progress Notes * Cammie Gallo - 01/05/2016 11:00 AM EDT Speech-Language Pathology Treatment session Total Timed Code Treatment: 68 min for cognitive skills S: ?? Per Isaiah, she has begun taking herbal supplements for brain detoxing, which she feels has beenquite helpful. She has been able to nap twice whereas prior to starting the herbs, she was unable to nap at all. ?? Isaiah appeared more relaxed today and is gradually seeing improvement in her overall cognitive endurance and tolerance of computer tasks. O: ?? Initially reviewed my test results from Isaiah's 12/15 Cognitive Evaluation. Per Isaiah, she does have persistent LONGORIA's with exertion, which Dr. Dennis had reported she did not have. She also mentioned that the neuro feedback program that she uses provides direct brain feedback using electrodes and sensing how the brain is reacting to music and other stimuli. Isaiah bought the program at a cost of $5500 because she found it to be very helpful. ?? Isaiah reported that she completed her assigned HEP but it took more time to complete (a couple oftries) and she wasn't sure about the accuracy of some of her responses. She also reported that it took her awhile to figure out the instructions, which I had given her but apparently too quickly for her to take them in at the end of her initial ST Assessment. I reviewed her HEP after this visit andjose francisco had 100% accuracy on puzzles completed. I think that because we did some of puzzle #2 together at the end of the last visit in order for me to demonstrate how to complete the puzzles, Isaiah did not finish this particular puzzle. Suspect that had she completed it, she would have been accurate. Per Isaiah, she could only do 3-4 puzzles in one sitting. ?? With trials of neuropsychonline, we determined that the following tasks will be challenging for Isaiah: Serial Addition under Executive Function; Divided Visual Attention under the Attention Skills panel; Simply Logical under Problem Solving; and Follow My Instructions (Visual) under the Communication Skills panel. Think the only task that Isaiah will be bored with at the lower levels will be the Communication Skills panel task. It is more challenging at levels 3 and 4. ?? Isaiah reported a mild LONGORIA after working on the computer today (between 3-4 on 1-10 pain scale). She has observed less light sensitivity and increased auditory attention when listening to the radio while doing other activities. She actually listened to the [facility] this am while driving. ?? 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 A: ?? Overall very successful ST session in that Isaiah is looking for brain challenges to move her forward and maximize return of cognitive function and thinks that the combination of written and computer HEP tasks will be helpful. She is slowly improving in the way of cognitive endurance and ability to tolerate screen time on the computer. Today she signed up for the neuropsychonline program and I selected tasks that I think will challenge her in her weaker areas. P: ?? Give Isaiah the #2 Mind Benders A1 puzzle to complete. Perhaps assign more challenging puzzles from book B1. ?? Review computer items completed. Cammie Gallo M.S., [facility]-AUTOMATION ANALYST Pager#[phone] documented in this encounter Plan of Treatment Not on file documented as of this encounter Visit Diagnoses Diagnosis Attention and concentration deficit Attention or concentration deficit documented in this encounter Care Teams Family Practice Nurse Practitioner Relationship Specialty Start Date End Date Mai Lilly MD [address] [place] [address] PCP - General Family Medicine 12/03/15 documented as of this encounter
--- OUTSIDE RECORDS SUMMARY | 2024-03-13 13:23 | XMS_ITS | Encounter Summary ---
[place] [address] Care Team Providers Care Paint Process Engineer Name Role Phone Mai Lilly MD Primary Care Provider [phone] Reason for Visit * Occupational Therapy (Routine) - Closed Specialty Diagnoses / Procedures Referred By Chantel allen Referred To Contact Occupational Therapy Diagnoses TBI (traumatic brain injury), without loss of consciousness, subsequent encounter Work related injury Darlin Richardson, SEASONAL SALES ASSOCIATE [facility] [place] [address] [facility] [place] [address] Referral ID Status Reason Start Date Expiration Date V isits Requested Visits Authorized [id number] Closed Evaluate and Treat 11/17/2015 11/16/2016 1 1 Encounter Details Date Type Department Care Team (Latest Contact Info) Description 12/03/2015 2:30 PM EDT Office [place] [address] Leah Estrella, OT Attention and concentration deficit; [...] Progress Notes * Leah Estrella OT - 12/03/2015 2:39 PM EDT OCCUPATIONAL THERAPY INITIAL EVALUATION REFERRAL SOURCE: Darlin Richardson DIAGNOSIS: 1. Attention and concentration deficit 2. TBI (traumatic brain injury), without loss of consciousness, subsequent encounter NEXT MD FOLLOW UP: TBJennifer TOTAL TREATMENT TIME: 55 minutes TIMED CODE TREATMENT TIME: Evaluation 55 minutes Evaluation ([id number]) 23-68 min HISTORY: Isaiah Man is a 59 y.o. year old right handed female who [...] see these results). Pt reports that in 2015 she started thinking and asking about cognitive rehab. Patient was seen by Dr. Dnenis in TBI clinic as request by Dr. Nacho Ortiz for post concussive symptoms and referred to occupational therapy and CIVIL STRUCTURAL ENGINEER for evaluation and treatment. Isaiah Man presents alone. PAIN: Location: headaches (consistent low level headaches 1-2); sore spot on skull in L occipital area, and neck pain, plantar fascia tear 4-5 if too much walking (typically a 2-3) OCCUPATIONAL PROFILE: LIVING SITUATION: Isaiah Man lives alone; 2 floor home with tub/shower. PRIOR FUNCTIONAL STATUS: LEVEL OF ASSIST ADL independent MOBILITY independent IADL independent COGNITIVE- COMMUNICATION SKILLS independent CURRENT ADL PERFORMANCE: (information gathered via patient/caregiver interview) ADL LEVEL OF ASSIST POSITION ADAPTIVE EQUIPMENT NOTES Bathing Independent with all ADLs Denies dizziness or issues with balance at this point for all ADLs, more limited with higher level cognition and IADLs (see below) Tub/shower transfer Standing in shower Grooming UE dressing LE dressing Donning Coat Donning shoes Toilet transfer LE clothing management Perineal Hygiene Eating finger foods Eating solid foods Eating liquid foods Drinking Bladder/Bowel Management continent CURRENT INSTRUMENTAL ADL PEFORMANCE: MEAL PREPARATION (X) NOTES/ ADAPTIVE EQUIPMENT multi-dish hot meal one dish hot meal X Typically not following recipes because of difficulty with attention and slowedprocessing; able to do with increased time but increased frustration hot beverage/re-heat prepared food cold meal self-serve Other GROCERY SHOPPIN. composing shopping list, 2. locating desired items, 3. selecting purchases, 4.transporting items (X) NOTES/ ADAPTIVE EQUIPMENT 4/4 without assistance X Using written lists 3/4 without assistance 2/4 without assistance 1/4 without assistance Dependent on assistance for 4/ Other CLOTHING CARE: 1. Collecting clothing and supplies, 2. Sorting clothing, 3. Operating washer/dryer,4. Folding, 5. Putting away clothing (X) NOTES/ ADAPTIVE EQUIPMENT 4/4 without assistance X 3/4 without assistance 2/4 without assistance 1/4 without assistance Dependent on assistance for 4/ Other LIGHT CLEANIN. making bed, 2. Straightening/dusting, 3. Vacuuming, 4. washing dishes (X) NOTES/ADAPTIVE EQUIPMENT / without assistance X 3/4 without assistance 2/ without assistance 1/ without assistance other HEAVY CLEANING TASKS: 1. Mopping/scrubbing floor, 2. Taking out the garbage, 3. Changing bed linens, 4. Washing bathroom (X) NOTES/ ADAPTIVE EQUIPMENT / without assistance X Able to complete 1 task at time; in not distracting environment 3/4 without assistance 2/4 without assistance 1/4 without assistance Other MONEY MANAGEMENT (X) NOTES/ ADAPTIVE EQUIPMENT Complex Transactions X Using autopay to assist in bill pay; did have a difficulty with getting a new card and not re-adjusting the autopays Payout correct money/change Pay out money for simple transactions Identify sharpe/coin correctly Unable to complete transactions Other WRITTEN COMMUNICATION (X) NOTES/ ADAPTIVE EQUIPMENT 1 page with good legibility X Handwriting 1 page without difficulty, has a challenge with using theNeli Technologiesputer- can use a laptop for 15 mins at a time with blue light filter; can use the ipad for longer periods of time Legibility declines after 1 page Legibility declines after 1/2 page Biographical information with fair/good legibility Biographical information with poor legibility Unable to perform writing Other PHONE USE (X) NOTES/ ADAPTIVE EQUIPMENT Independent in phone use including content X Reports a little more difficulty with recalling numbers but is better than it was Place informational call with verbal cues/dials phone Dials familiar numbers with strategies Answers phone but cannot place call Unable to use phone Other MEDICATION MANAGEMENT (X) NOTES/ ADAPTIVE EQUIPMENT Independent managing medication/medication information/refills Independent with modificantions X Takes medications with setup or verbal cues for refill Occasional assist with medication and dependent for refill Frequent verbal cues to take medication Assist to take all medication Other TRANSPORTATION (X) NOTES/ ADAPTIVE EQUIPMENT Independent with driving/public transit X Driving- longest drive was a few weeks ago for [facility] appointment in [facility] (broke the trip down into 3 stops); then had a shortened appointment, was able todrive home with a brief break- was completely exhausted independent with modifications independent with paratransit requires public transit trolley driver/bulk materials handling plant operator due to cognitive or physical limitations homebound/unable to access transportation Other LEISURE SKILLS (X) NOTES/ ADAPTIVE EQUIPMENT Able to identify interests and reports regular participation Able to identify interests however reports infrequent participation X Is getting out and seeing friends; was able to go to a [employer] concert to see a friend from [place] who has ALS Was able to make it to intermission and stayed in a hotel to prevent exhaustion from driving and concert Able to identify interests but is not participating Unable to identify leisure activites Other Work Status: Off work Work Role: 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); 40-50 hrs/week FUNCTIONAL LIMITATIONS: Isaiah Man identifies difficulty with the following functional activities using the Patient Specific Functional Scale (PSFS): 0/10 (unable to perform) to 10/10 (Able to perform without difficulty) Activity At Evaluation 1.) Self pacing/energy conservation 5 2.) Doing a cognitive activity with distraction 2 3.) Back to work 0 4.) Resume writing 0 5.) Total: Average Score 1.75 OBJECTIVE: Hand Dominance: Right UPPER EXTREMITY COORDINATION: Diadochokinesia RIGHT LEFT Test - - Trial #1 WNl WNL Finger to Nose RIGHT LEFT Test - - Trial #1 WNL WNL Finger Opposition RIGHT LEFT Test - - Trial #1 WNL WNL UPPER EXTREMITY ROM: Sohail UE are WFL. UPPER EXTREMITY STRENGTH: Reports decreased strength secondary to decreased activity level but WFL roughly 5/5 throughout sohail shoulder flexion, abduction, elevation; roughly 4+/5 in elbow flexion/extension, pronation/supination. STRENGTH: (Measured in pounds using a dynamometer and pinch meter) Right Left Business Systems Analyst setting 2 58 58 Business Systems Analyst Average for gender and age 55 55 UPPER EXTREMITY TONE: No issues. SENSATION: No sensory changes. FUNCTIONAL MOBILITY: Falling (none, rare falling, occasionally falls/less than once per day, falls on average of once daily, falls more than once daily): ?? Denies recent falls, had a minor slip on the ice in June without further injury. MENTAL FUNCTION: Global mental functions Consciousness/ state of awareness and alertness: Alert and oriented Temperament and personality: Engaged and motivated, she reports that she has counseling weekly (often by telephone and/or [address] ?? Reports that she is unable to sleep during the day but is able to sleep at night. ?? She also reports that she is more of a visual learner and has always been challenged by auditorylearning. ?? She has been unable to watch movies and especially new movies because she is unable to process the information. She is able to watch re-runs of old TV shows she is familiar with the plot and characters. ?? She reports her greatest concern is his ability to process information (as she reports this is significantly impaired and was previously a strength), she also reports delayed recall and auditory learning are priorities in prep for return to work. ?? She is also troubled by verbal fluency, word finding, and stuttering (for which she will see CIVIL STRUCTURAL ENGINEER). ?? She is engaged in several alternative medicine therapies and has been having acupuncture with cranial-sacral work Specific mental functions Symptoms Evaluation Scale 0-6 (0= no symptoms, [...] remembering 3 Visual problems 0 Total 26/132 VISION FUNCTIONS: Denies visual issues- for the first 8 months had difficulty with photosensitivitywhich has recovered. TREATMENT TODAY: Evaluation Therapeutic Activity Position Equipment/Environment Level of assistance Repetitions/ Time Response Discussed biofeedback (which is a treatment option she has been using prior to OT) neuroptimal feedback (electrodes on scalp) with music- pt reports that is senses Sitting Pt reports that she has home unit, and still connects with her provider who set this us- reports that is really helpful to her Discussed constant therapy which pt has been using at home for several months on her ipad Sitting Discussion Pt reports that she has been doing constant therapy 2-3 times a week, her memory is improving, she reports that her scores have not particularly increased but the activities are harder. Stopped doing the math questions as it is not a deficit. ASSESSMENT: Isaiah Man presents with limited functional performance due to self reported deficits in word finding, stuttering, verbal fluency (for which she will see CIVIL STRUCTURAL ENGINEER). She is also self reporting deficits in energy conversation, high level processing and problem solving, auditory working memory, mutli- tasking, multi-tasking with distraction, speed of processing, divided attention, and delayed recall (although improved from the original injury). Isaiah was able to report her goals and discuss several of the strategies she is already using including constant therapy (online) and neuro-optimal feedback (which was started by another provider pt has a home unit). She continues to be engaged in weekly counseling, acupuncture, and osteopathic medicine (for her torn plantar fascia). Isaiah benefits from full cognitive screening with use of the TEA to assess attention abilities. This therapist will also contact Lala Richardson (who pt reports has results of her prior 2015 neuropsych eval). Isaiah's goals are to improve her ability to process information, self pace, multi-task, tolerate screentime, in prep for return to work (notably her prior job was dissolved and pt wants to seek new employment when able). These impairments have a significant impact on the patient's performance in the following areas of occupation: BADLs, IADLs, rest/sleep, education, work, leisure, driving, and social participation. Patient will benefit from outpatient OT services using both rehabilitative and compensatory approaches to maximize safety and independence with BADL/ IADL, UE function, balance, memory, and attention to facilitate return to premorbid activities. Next visit: CRISTELA Snf Goals (to be met by discharge): [...] strategies in prep for return to work. Goal Status: In progress Isaiah Man will complete a 3 stop functional scavenger thornton and recall 75% of items after 10 mins. Goal Status: In progress Isaiah Man will [...] 6-12 week(s) to progress toward short and mcfp goals. for Cognitive retraining attention, sequencing, problem [...] encounter documented in this encounter Care Teams Paint Process Engineer Relationship Specialty Start Date End Date Mai Lilly MD [address] [address] PCP - General Family Medicine 12/03/15 documented as of this encounter
--- OUTSIDE RECORDS SUMMARY | 2024-03-13 13:23 | XMS_ITS | Encounter Summary ---
[place] [address] Care Team Providers Care Migratory Game Bird Biologist Name Role Phone DinaChamp palacios Primary Care Provider [phone] Reason for Referral * Occupational Therapy (Routine) - Closed Specialty Diagnoses / Procedures Referred By Chantel allen Referred To Contact Occupational Therapy Diagnoses TBI (traumatic brain injury), without loss of consciousness, subsequent encounter Work related injury Darlin Richardson APRN [facility] [place] [address] [facility] [place] [address] Referral ID Status Reason Start Date Expiration Date V isits Requested Visits Authorized [id number] Closed Evaluate and Treat 10/11/2015 10/10/2016 12 12 Encounter Details Date Type Department Care Team (Late st Contact Info) Description 10/11/2015 Orders [place] [id number] Darlin Richardson OPERATIONS CONTROLLER [facility] [place] [address] TBI (traumatic brain injury), without loss of consciousness, subsequent encounter; Work related injury Social History Tobacco Use Types Packs/Day Years Used Date Smoking Tobacco: Never Assessed Sex and Gender Information Value Date Recorded Sex Assigned at Not on file Gender Identity Not on file Sexual Orientation Not on file documented as of this encounter Plan of Treatment Scheduled Referrals Name Type Priority Associated Diagnoses Order Schedule Referral to Occupational Therapy Outpatient Referral Routine TBI (traumatic brain injury), without loss of consciousness, subsequent encounter Work related injury Ordered: 10/11/2015 documented as of this encounter Visit Diagnoses Diagnosis TBI (traumatic brain injury), without loss of consciousness, subsequent encounter Work related injury Injury, other and unspecified, unspecified site documented in this encounter Care Teams Migratory Game Bird Biologist Relationship Specialty Start Date End Date Champ Arroyo DO [facility] [address] [place] [address] PCP - General 04/21/10 10/15/15 documented as of this encounter
--- OUTSIDE RECORDS SUMMARY | 2024-03-13 13:23 | XMS_ITS | Encounter Summary ---
Author Organization [facility] Address [facility] [place] [address] Care Team Providers Care Accreditation Coordinator Name Role Phone Mai Lilly MD Primary Care Provider Encounter Details Date Type Department Care Team (Latest Contact Info) Description 02/04/2016 2:30 PM EDT Office [place] [address] Leah Estrella, OT Attention and concentration deficit; [...] Progress Notes * Leah Estrella, OT - 02/04/2016 2:30 PM EDT OCCUPATIONAL THERAPY TREATMENT NOTE Visit 5 REFERRAL SOURCE: Darlin Richardson DIAGNOSIS: 1. Attention and concentration deficit 2. TBI (traumatic brain injury), without loss of consciousness, subsequent encounter 3. Work related injury NEXT MD FOLLOW UP: TBA TOTAL TREATMENT TIME: 55 minutes TIMED CODE TREATMENT TIME: TFA 55 minutes Therapeutic / Functional Activities (39309) 55 min HISTORY: Isaiah Man is a [...] symptoms and referred to occupational therapy and [employer]OP[employer] HCM DEVELOPER for evaluation and treatment. Isaiah Man presents [...] working memory task for remediation of working memory- 1 back without suit Sitting in room with dimmed lights Deck of cards, record sheet Min cues 10 mins to review Isaiah completed this task ~4times over the week- she improved her time to 55 seconds but reports that she tends to see the prior card- suggested turning cards over to occlude vision or completing 2 back strategy Modified MET- provided list of 6 rules for 7 minute dual-tasking activity 6 activities broken into Part I and Part II with 3 categories, lists, cards, and catalogue search with delong restrictions Sitting in room with dimmed lights- minimal distraction Deck of cards, onlinecatalogue ([employer]) Independent This task was d/c'ed from the home program because it wasnot challenging enough after a few trials PQRST strategy for videos and reading material (Isaiah reports that reading retention is not an issuebut that she is challenged by sensory stimulation/overload/density of new material) Provided a short list of videos to practice with: recovery: http://www.brainline.org/content/multimedia.php?bx=6049 resiliency: http://www.brainline.org/content/multimedia.php?ad=5773 http://www.choa.org/Gjnavqxdm-Zqnjuylu-Jxxsimog/Concussion/Concussion-Module Sitting in room with dimmed lights Computer, PQST strategy print out, video Min A 30 mins Isaiah reports that she did not try this activity because it didn't seem relevant and useful particularly the questions Discussed the idea with the questions is to ask self any question that relates to the topic to prime the brain to receive new information to improve encoding of new info- also try to recall emotional memories/limbic system as this can be helpful in delayed recall Isaiah took notes during this discussion (dual tasking of discussion and notetaking) to help recall information Isaiah demonstrated from visual spatial and problem solving activities she is working on her ipad (spider solitaire, wooden puzzles) Sitting ipad 20 Isaiah reports how basic, simple activities (use as these ipad apps) can be helpful for priming her for more complex activities Also discussed home program of completing above activities 10 mins a day ASSESSMENT: Isaiah Man is making progress and believes that OT and PEOPLESOFT HCM DEVELOPER are helpful for her recovery. Isaiah reports that she is pleased with the slow but forward progress she is making through OT and PEOPLESO[employer] HCM DEVELOPER. Isaiah reports that initiation of activities is difficult for her i.e. she has difficulty preparing to wash the dishes or do home OT exercises- and that it can take 2-3 days to pre-plan the ac tivity prior to execution. The plan is to attempt 10 mins of OT exercises, write the task on her schedule, and allow for 2 days of prep time. Isaiah's goals are to improve her ability to process information, self pace, multi-task, tolerate screen time, in prep for return to work (notably her prior job was dissolved and pt wants to seek new employment when able). These impairments have a significant impact on the patient's performance in the following areas of occupation: BADLs, IADLs, rest/sleep,education, work, leisure, driving, and social participation. Next visit: MVPT Cancellation task- map searching (math tasks are not challenging) Livestock Agent Goals (to be met by discharge): Date [...] 6-12 week(s) to progress toward short and equipment operator intermodal yard goals. for Cognitive retraining attention, sequencing, problem [...] site documented in this encounter Care Teams Accreditation Coordinator Relationship Specialty Start Date End Date Mai Lilly MD [address] [place] [id number] PCP - General Family Medicine 12/03/15 documented as of this encounter
--- OUTSIDE RECORDS SUMMARY | 2024-03-13 13:23 | XMS_ITS | Encounter Summary ---
Author Organization [facility] Address [address] [place] [address] Care Team Providers Care Electrical Systems Engineer Name Role Phone Mai Lilly MD Primary Care Provider [phone] Reason for Visit * Reason Onset Date Comments Results 04/10/2015 Encounter Details Date Type Department Care Team (Late st Contact Info) Description 04/10/2015 Telephone [facility] Memory Program - Medical Office Building [address] [place] [address] Laurent Higgins, PhD [address] [facility] Medical Office Building, [address] [place] [address] Results Social History Tobacco Use Types Packs/Day Years Used Date Smoking Tobacco: Never Assessed Sex and Gender Information Value Date Recorded Sex Assigned at Not on file Gender Identity Not on file Sexual Orientation Not on file documented as of this encounter Miscellaneous Notes * Telephone Encounter - Cynthia Henry - 04/14/2015 1101 EST Mailed note from Gisela 02/23/2015 visit to the patient at: Michelle Man [address] [place] [id number] This was done per the directive of Laurent Higgins, Ph.D. Spoke with patient and notified her that this was being done. * Telephone Encounter - Doretha De Dios - 04/10/2015 1401 EST Michelle called as she has in the past requesting a copy of her Neuropsych test that was done back in January. I told her that was out of the protocol and I could not send them to her but she is insistent that these are her medical records and she has a right to them. If she is not allowed to have these she wants to know why these are different than any other medical records and why she doesn't have a right to them. She is expecting a call back. documented in this encounter Plan of Treatment Not on file documented as of this encounter Visit Diagnoses Not on filedocumented in this encounter Care Teams Electrical Systems Engineer Relationship Specialty Start Date End Date Mai Lilly MD [address] [place] [id number] PCP - General 02/20/15 documented as of this encounter
--- OUTSIDE RECORDS SUMMARY | 2024-03-13 13:23 | XMS_ITS | Encounter Summary ---
Author Organization [facility] Address [address] [place] [address] Care Team Providers Care Credit Products Officer Name Role Phone Mike Johnson MD Primary Care Provider + Encounter Details Date Type Department Care Team (Latest Contact Info) Description 02/14/2014 13:56 EDT - 02/14/2014 23:59 EDT Hospital Encounter [facility] [address] [place] [address] Unknown, Provider, Discharge Disposition: Home or Self Care Social History Tobacco Use Types Packs/Day Years Used Date Smoking Tobacco: Never Assessed Sex and Gender Information Value Date Recorded Sex Assigned at Not on file Gender Identity Not on file Sexual Orientation Not on file documented as of this encounter Discharge Disposition Disposition Code Departure Means Destination Home or Self [facility] documented in this encounter Plan of Treatment Not on file documented as of this encounter Visit Diagnoses Not on filedocumented in this encounter Care Teams Credit Products Officer Relationship Specialty Start Date End Date Mike Johnson MD [address] [place] [address] PCP - General 11/18/10 02/19/14 documented as of this encounter
--- OUTSIDE RECORDS SUMMARY | 2024-03-13 13:23 | XMS_ITS | Encounter Summary ---
Author Organization [facility] Address [address] [place] [address] Care Team Providers Care Manager Hvac Name Role Phone Mai Lilly MD Primary Care Provider [phone] Encounter Details Date Type Department Care Team (Late st Contact Info) Description 06/26/2019 Results Only [facility] - Main [address] [address] Steff Petty [place] Social History Tobacco Use Types Packs/Day Years Used Date Smoking Tobacco: Never Assessed Sex and Gender Information Value Date Recorded Sex Assigned at Not on file Gender Identity Not on file Sexual Orientation Not on file documented as of this encounter Plan of Treatment Not on file documented as of this encounter Procedures Procedure Name Priority Date/Time Associated Diagnosis Comments T4 FREE Routine 06/26/2019 15:00 EST documented in this encounter Results * T4 FREE (06/26/2019 15:00 EST) FREE [address] 0.84 0.78 - 2.19 ng/dl 06/26/2019 20:03 EST [facility] 06/26/2019 15:0 0 EST 06/26/2019 18:31 EST Steff Petty ND CHEMISTRY & BLOOD GA S ORDERABLES [facility] documented in this encounter Visit Diagnoses Not on filedocumented in this encounter Care Teams Manager Hvac Relationship Specialty Start Date End Date Mai Lilly MD [address] [place] [address] PCP - General 02/20/15 documented as of this encounter
--- OUTSIDE RECORDS SUMMARY | 2024-03-13 13:23 | XMS_ITS | Encounter Summary ---
Author Organization [facility] Address [address] [place] [address] Care Team Providers Care Book Author Name Role Phone Mai Lilly MD Primary Care Provider [phone] Reason for Visit * Reason Onset Date Comments Other 04/01/2015 Encounter Details Date Type Department Care Team (Late st Contact Info) Description 04/01/2015 Telephone [facility] Memory Program - Medical Office Building [address] [place] [address] Laurent Higgins, PhD [address] [facility] Medical Office Building, [address] [place] [address] Other Social History Tobacco Use Types Packs/Day Years Used Date Smoking Tobacco: Never Assessed Sex and Gender Information Value Date Recorded Sex Assigned at Not on file Gender Identity Not on file Sexual Orientation Not on file documented as of this encounter Miscellaneous Notes * Telephone Encounter - Mona Castellano - 04/01/2015 1324 EST The patient is seeing Dr. Rubalcava on 04/09/15. The patient is requesting a copy of her evaluation with Dr. Higgins. It was explained to the patient that Dr. Rubalcava would review the results with her. She voiced understanding. documented in this encounter Plan of Treatment Not on file documented as of this encounter Visit Diagnoses Not on filedocumented in this encounter Care Teams Book Author Relationship Specialty Start Date End Date Mai Lilly MD [address] [place] [address] PCP - General 02/20/15 documented as of this encounter
--- OUTSIDE RECORDS SUMMARY | 2024-03-13 13:23 | XMS_ITS | Encounter Summary ---
Author Organization [facility] Address [facility] [place] [address] Care Team Providers Care Software Project Engineer Name Role Phone Mai Lilly MD Primary Care Provider [phone] Encounter Details Date Type Department Care Team (Latest Contact Info) Description 01/21/2016 1:00 PM EDT Office [place] [address] Leah Estrella, OT Attention and concentration deficit; [...] Progress Notes * Leah Estrella, OT - 01/21/2016 1:00 PM EDT OCCUPATIONAL THERAPY TREATMENT NOTE Visit 3 REFERRAL SOURCE: Darlin Richardson DIAGNOSIS: 1. Attention and concentration deficit 2. Work related injury 3. TBI (traumatic brain injury), without loss of consciousness, subsequent encounter NEXT MD FOLLOW UP: TBA TOTAL TREATMENT TIME: 55 minutes TIMED CODE TREATMENT TIME: TFA 55 minutes Therapeutic / Functional Activities (85711) 55 min HISTORY: Isaiah Man is a [...] symptoms and referred to occupational therapy and CANDY DEPARTMENT MANAGER for evaluation and treatment. Isaiah Man presents [...] Equipment/Environment Level of assistance Repetitions/ Time Response Functional scavenger sung (stated below) with problem solving aspect of keeping budget under $50 and 3 stops Sitting and standing Set up Planning 3 mins 26 mins to complete 10 mins to discuss Isaiah quickly planned the activity and required not cues for problem solving; shebecame very fatigued after roughly 20 mins and reports I would just stop now while in the pharmacy due to energy, fatigue, grogginess, headache- she had difficulty focusing on scanning visual arrayin pharmacy and finding items secondary to activity; she was distracted by people talking in the pharmacy Martinez reported that she was very challenged after the activity and discussed the self-pacing strategies- taking breaks, increasing time slowly- Isaiah is using some of these strategies already She did report after seeing OT/CANDY DEPARTMENT MANAGER she was unable to engage in anything for 2 days due to a high level of fatigue Discussed constant therapy and reviewed results Sitting Set up 5 mins Isaiah has been started on neuropsych online which she reports is more challenging- many of her baseline metrics on constant therapy were 100% accurate but her fatigue when she started was significant; she reports her timing has mostly improved and her endurance Agreed to work solely on neuropsych online Scavenger Sung Today you are running errands for a doctor at [facility]. He has provided you with a list of items that he would like for you to purchase. You are given $50 and are asked to not exceed this amount. In addition, he is very busy and has only allotted you a small amount of time to complete this task. Doctor List: Gift shop items: Dog themed car coaster (large or small) FRAMED magazine Pharmacy: Udderly smooth body cream Loxley Defense Sugar Free Cough Drops Cravins 20 oz. [place] [employer] [place] Coffee Au Bon Pain: Black Sammy Steak & Cheese Sub Gift for his (chose from options below)- All found at gift shop ??? 2 Liya Whiteside eyeglass cases ??? Liya Whiteside lunch cooler/box ??? [place] Jabier of the Garden ??? For Teas Sake: Let???s Suresh- Black Tea Suresh Spice ASSESSMENT: Isaiah Man presents with limited functional performance due to self reported deficits in word finding, stuttering, verbal fluency (for which she will see CANDY DEPARTMENT MANAGER). She is also self reporting deficits in energy conversation, high level processing and problem solving, auditory working memory, mutli- tasking, multi-tasking with distraction, speed of processing, divided attention, and delayed recall (although improved from the original injury). During TEA, Isaiah did well with auditory working memory, speed of processing, and dual tasking, however, this was a non-traditional environmentand despite higher than average scores; Isaiah may be functioning below her prior to injury level. Iasiah was very challenged by sustained attention and visual selective attention especially in an unstructured array. Today Isaiah was able to pre-plan a functional task of 3 stop scavenger functional but was very fatigued by the extremely stimulating environment and was challenged at the last stop to recall and visually search for the remaining items. Isaiah's goals are to improve her ability [...] driving, and social participation. Next visit: MVPT Motel Front Desk Attendant Goals (to be met by discharge): Date [...] will complete a 3 stop functional scavenger sung and recall 75% of items after 10 mins. 8/24 Goal Status: Partially met-significantly increase symptoms Isaiah [...] 6-12 week(s) to progress toward short and terminal computer operator goals. for Cognitive retraining attention, sequencing, [...] encounter documented in this encounter Care Teams Software Project Engineer Relationship Specialty Start Date End Date Mai Lilly MD [address] [place] [address] PCP - General Family Medicine 12/03/15 documented as of this encounter
--- OUTSIDE RECORDS SUMMARY | 2024-03-13 13:23 | XMS_ITS | Encounter Summary ---
Author Organization [facility] Address [address] [place] [address] Care Team Providers Care Cigarette Filter Inspector Name Role Phone Unavailable Primary Care Provider Unavailabl e Encounter Details Date Type Department Care Team (Latest Contact Info) Description 03/10/1999 19:40 EDT Hospital Encounter [facility] - Other [address] [place] [address] Mike Johnson MD [address] [place] [id number] Unknown, ProviderMD Discharge Disposition: Auto Discharge Social History Tobacco Use Types Packs/Day Years Used Date Smoking Tobacco: Never Assessed Sex and Gender Information Value Date Recorded Sex Assigned at Not on file Gender Identity Not on file Sexual Orientation Not on file documented as of this encounter Discharge Disposition Disposition Code Departure Means Destination Auto Discharge documented in this encounter Plan of Treatment Not on file documented as of this encounter Visit Diagnoses Not on filedocumented in this encounter
--- OUTSIDE RECORDS SUMMARY | 2024-03-13 13:23 | XMS_ITS | Encounter Summary ---
Author Organization [facility] Address [address] [place] [address] Care Team Providers Care Fast Food Sales Assistant Name Role Phone Unavailable Primary Care Provider Unavailabl e Encounter Details Date Type Department Care Team (Late st Contact Info) Description 12/07/2006 9:56 EDT Hospital Encounter [facility] [address] [place] [address] John Guerra, DO [address] [facility], [place] [address] Social History Tobacco Use Types Packs/Day Years Used Date Smoking Tobacco: Never Assessed Interpersonal Safety Answer Date Record ed Physically Hurt Never 12/30/2019 Verbally Threaten Not on file 12/30/2019 Sex and Gender Information Value Date Recorded Sex Assigned at Not on file Gender Identity Not on file Sexual Orientation Not on file documented as of this encounter Plan of Treatment Not on file documented as of this encounter Procedures Procedure Name Priority Date/Time Associated Diagnosis Comments CYTOPATHOLOGY Routine 11/28/2008 0:00 EDT 25 [place] VITAMIN D2 D3 Routine 12/07/2006 1 0:37 EDT TESTOSTERONE, TOTAL AND FREE Routine 12/07/2006 10:37 EDT T3 FREE Routine 12/07/2006 10:37 EDT T3, TOTAL Routine 12/07/2006 10:37 EDT TSH Routine 12/07/2006 10:37 EDT T4 FREE Routine 12/07/2006 10:37 EDT T4 Routine 12/07/2006 10:37 EDT documented in this encounter Results * CYTOPATHOLOGY (11/28/2008 0:00 EDT) Pathology Report: CYTOPATHOLOGY REPORT ? Reports generated via electronic interface contain original data; ? however they are lacking the format of the original report. ? Caution should be taken when reading/interpreti ng unformatted reports. ? Name: ? VICKY JONES ? Accession #: ? [id number] ? : ? 1955 (Age: 52) ??F ?Collect Date: ? 11/28/2008 ? Location: ? [facility] ? Receive Date: ? 12/02/2008 ? Provider: ?RAUL LIANG MD ? Copy to: ? Specimen/Source: ?Pap Test, Cervix, ThinPrep Imaging System with manual ?? evaluation ? Last Menstrual Period: ? 2004 ? Other: ? HPVA - HPV testing requested if ASC-US on the current ThinPrep Pap test. ? SPECIMEN ADEQUACY ? Satisfactory for Evaluation ? - assessment of transformation zone component not applicable ( e.g. atrophy, ? vaginal sample, hysterectomy) ? - scant squamous epithelial component secondary to excessive inflammation ? GENERAL CATEGORIZATION ? Negative for Intraepithelial Lesion or Malignancy ? Document reviewed and electronically signed by: ? Lynan Everardo, CT(ASCP) ? Report Date: ??12/05/2008 11:34 ? End of Report ? [facility] 11/28/2008 12/02/2008 Raul Liang MD PATHOLOGY ORDERABLES [facility] [address] [place] [address] * 25 [place] VITAMIN D2 D3 (12/07/2006 10:37 EDT) 25-Hydroxy D2 <4.0 Unit: ng/mL [facility] 25-Hydroxy D3 32 Unit: ng/mL [facility] 25-Hydroxy D Total 32Unit: ng/mL(Note) -- EXPECTED VALUES -- ? (Ref Range) 25-HYDROXY D TOTAL (D2+D3) ? Optimum levels in the normal ? population are 25-80 ? Test Performed by: ? [facility] ? [address], [place] [address] ? Waiter And Cashier: Yuniel Nina III, M.D. ? [facility] 12/07/2006 10:3 7 EDT 12/07/2006 10:39 EDT John Guerra DO CHEMISTRY & BLOOD G ORDERABLES Performing Organization Address [facility] de Phone Number [facility] [address] [place] [address] * TSH (12/07/2006 10:37 EDT) Pathologist [facility] TSH 1.44 0.35 - 5.00 uIU/mL [facility] 12/07/2006 10:3 7 EDT 12/07/2006 10:39 EDT John Guerra DO CHEMISTRY & BLOOD G ORDERABLES Performing Organization Address [facility] de Phone Number [facility] [address] [place] [address] * T4 (12/07/2006 10:37 EDT) T4, Total 6.4 4.5 - 10.9 ug/dL [facility] Comment:Sample retested, res ult confirmed 12/07/2006 10:3 7 EDT 12/07/2006 10:39 EDT John Guerra DO CHEMISTRY & BLOOD G ORDERABLES Performing Organization Address [facility] de Phone Number [facility] [address] [place] [address] * T3, TOTAL (12/07/2006 10:37 EDT) T3, Total 123 60 - 181 ng/dL [facility] 12/07/2006 10:3 7 EDT 12/07/2006 10:39 EDT John Guerra DO CHEMISTRY & BLOOD G ORDERABLES Performing Organization Address [facility] de Phone Number [facility] [address] [place] [address] * TOTAL & FREE TESTOSTERONE (12/07/2006 10:37 EDT) Sex Hormone Binding Globulin 77.8 18 - 114 nmol/L [facility] Comment:Reference range is f or non- females. Testosterone, Total 35 14 - 76 ng/dL [facility] Testosterone, Free 0.3 0.1 - 1.5 ng/dl [facility] Comment: Test not recommended in patients with plasma protein abnormalities. 12/07/2006 10:3 7 EDT 12/07/2006 10:39 EDT John E Fremont DO CHEMISTRY & BLOOD G ORDERABLES Performing Organization Address [facility] de Phone Number [facility] [address] [place] [address] * T4 FREE (12/07/2006 10:37 EDT) Free T4 1.1 0.8 - 1.8 ng/dL [facility] 12/07/2006 10:3 7 EDT 12/07/2006 10:39 EDT John E Mari DO CHEMISTRY & BLOOD G ORDERABLES Performing Organization Address [facility] de Phone Number [facility] [address] [place] [address] * T3 FREE (12/07/2006 10:37 EDT) T3, Free 3.0 2.3 - 4.2 pg/mL [facility] 12/07/2006 10:3 7 EDT 12/07/2006 10:39 EDT John Guerra DO CHEMISTRY & BLOOD G ORDERABLES Performing Organization Address City/State/[facility] de Phone Number [facility] [address] [place] [address] documented in this encounter Visit Diagnoses Not on filedocumented in this encounter
--- OUTSIDE RECORDS SUMMARY | 2024-03-13 13:23 | XMS_ITS | Encounter Summary ---
Author Organization [facility] Address [facility] [place] [place] [address] Care Team Providers Care Concrete Plant Laborer Name Role Phone Mai Lilly MD Primary Care Provider [phone] Encounter Details Date Type Department Care Team (Latest Contact Info) Description 01/05/2016 1:00 PM EDT Office Visit [place] [address] Leah Estrella, OT Attention and concentration deficit; [...] Progress Notes * Leah Estrella, OT - 01/05/2016 1:00 PM EDT OCCUPATIONAL THERAPY TREATMENT NOTE Visit 2 REFERRAL SOURCE: Darlin Richardson DIAGNOSIS: 1. Attention and concentration deficit 2. Work related injury 3. TBI (traumatic brain injury), without loss of consciousness, subsequent encounter NEXT MD FOLLOW UP: TBA TOTAL TREATMENT TIME: 55 minutes TIMED CODE TREATMENT TIME: TFA 55 minutes Therapeutic / Functional Activities (38134) 55 min HISTORY: Isaiah Man is a [...] symptoms and referred to occupational therapy and COMMUNITY DEVELOPMENT TECHNICIAN for evaluation and treatment. Isaiah Man presents alone. PAIN: Location: headaches (consistent low level headaches 1-2); sore spot on skull in L occipital area, and neck pain, plantar fascia tear 4-5 if too much walking (typically a 2-3)FUNCTIONAL LIMITATIONS: Isaiah Man identifies difficulty with the following functional activities using the Patient Specific Functional Scale (PSFS): 0/10 (unable to perform) to 10/10 (Able to perform without difficulty) Activity At Evaluation 1.) Self pacing/energy conservation 5 2.) Doing a cognitive activity with distraction 2 3.) Back to work 0 4.) Resume writing 0 5.) Total: Average Score 1.75 MENTAL FUNCTION: Global mental functions Consciousness/ state [...] and stuttering (for which she will see COMMUNITY DEVELOPMENT TECHNICIAN). ?? She is engaged in several alternative [...] 8 of 10 strings (10% for age) VISION FUNCTIONS: Denies visual issues- for the first 8 months had difficulty with photosensitivitywhich has recovered. TREATMENT TODAY: Isaiah looked brighter today, she reports that her chiropractor has encouraged her to try some tinctures and they appear to be helping her energy level and decreasing her cognitive fatigue. Therapeutic Activity Position Equipment/Environment Level of assistance Repetitions/ Time Response Completed the TEA to assess for attentional deficits, strengths, weaknesses as they related to IADLs, return to work, etc. Sitting- room with dimmed lights and quiet TEA Administration 50 mins Isaiah tolerated the TEA well she did report significant fatigue after completing the activity and reported an increased headache by 1-2 on the 1-10 scale Isaiah displayed several strengths on the testing including auditory selective attention (subtest 3) 75% for age with ceiling effect, auditory working memory (subtest 4) 95% for age, mental flexibility(subtest 4) with 10 of 10 strings correct, and 90% for speed of processing on subtest 4 (visual elevator task). Isaiah also scored in the 75% for the dual task decrement (subtest 7) Isaiah did have some difficulty with visual selective attention in a complex, (un)structured array (map search 25% for 1 min and 75% for 2 mins) and telephone search (50% for age). Most notably, Isaiah had difficulty with sustained attention (lottery subtest 8) after an hour of activity, scoring in the10% for her age Discussed constant therapy which pt has been [...] verbal fluency (for which she will see COMMUNITY DEVELOPMENT TECHNICIAN). She is also self reporting deficits in energy conversation, high level processing and problem solving, auditory working memory, mutli- tasking, multi-tasking with distraction, speed of processing, divided attention, and delayed recall (although improved from the original injury). Isaiah tolerated the TEA well, but she did report significant fatigue after completing the activity and reported an increased headache by 1-2 onthe 1-10 scale. Isaiah displayed several strengths on the testing including auditory selective attenti on (subtest 3) 75% for age with ceiling effect, auditory working memory (subtest 4) 95% for age, mental flexibility (subtest 4) with 10 of 10 strings correct, and 90% for speed of processing on subtest 4 (visual elevator task). Isaiah also scored in the 75% for the dual task decrement (subtest 7). Although Isaiah scored highly in these subtests she did use compensatory strategies including eyes closed, talking aloud, etc. And the environment was a quiet dimmed room (which is not leasing representative of the workplace). Relative weaknesses: Isaiah did have some difficulty with visual selective attention ronna complex, (un)structured array (map search 25% for 1 min and 75% for 2 mins) and telephone search (50% for age). Most notably, Isaiah had difficulty with sustained attention (lottery subtest 8) after an hour of activity, scoring in the 10% for her age. Recommendations: break activities down into smaller pieces, use visual strategies during searches including anchors, highlighting, search patterns, etc., take small breaks including short 1-2 min walks to re-focus and improve sustained attention from difficult cognitive tasks, simply/decrease distractions when attempting complex cognitive tasks (such as paying bills). Isaiah's goals are to improve her ability [...] facilitate return to premorbid activities. Next visit: Review constant therapy MVPT Discuss compensatory strategies- scheduling tasks [facility] Goals (to be met by discharge): Date [...] 6-12 week(s) to progress toward short and fci goals. for Cognitive retraining attention, sequencing, problem [...] encounter documented in this encounter Care Teams Concrete Plant Laborer Relationship Specialty Start Date End Date Mai Lilly MD [address] [place] [address] PCP - General Family Medicine 12/03/15 documented as of this encounter
--- OUTSIDE RECORDS SUMMARY | 2024-03-13 13:23 | XMS_ITS | Encounter Summary ---
Author Organization [facility] Address [address] [place] [address] Care Team Providers Care Clinical Physician Assistant Name Role Phone Mai Wong MD Primary Care Provider [phone] Encounter Details Date Type Department Care Team (Late st Contact Info) Description 11/19/2016 Results Only [facility] [phone] Mai Wong MD [address] [place] [address] Social History Tobacco Use Types Packs/Day Years Used Date Smoking Tobacco: Never Assessed Sex and Gender Information Value Date Recorded Sex Assigned at Not on file Gender Identity Not on file Sexual Orientation Not on file documented as of this encounter Plan of Treatment Not on file documented as of this encounter Procedures Procedure Name Priority Date/Time Associated Diagnosis Comments PAP TEST- RESULT ONLY Routine 11/19/2016 0:00 EDT documented in this encounter Results * PAP TEST- RESULT ONLY (11/19/2016 0:00 EDT) Pathology Report: CYTOPATHOLOGY REPORT Reports generated via electronic interface contain original data; however they are lacking the format of the original report. Caution should be taken when reading/interpreti ng unformatted reports. Name: ? VICKY JONES ? Accession #: ? [id number] ? : ? 1955 (Age: 60) ??F ?Collect Date: ? 11/19/2016 ? Location: ? [facility] ? Receive Date: ? 11/23/2016 ? Provider: MAI WONG MD Copy to: ? Final Report SPECIMEN ADEQUACY ? Satisfactory for Evaluation - transformation zone component present GENERAL CATEGORIZATION ? Negative for Intraepithelial Lesion or Malignancy ?? Hormonal/Contracep tive status: None Other: Stopping Builder Clinical/Treatment Hx - None Specimen/Source: ??Pap Test, Cervix/Endocervix, ThinPrep Imaging System with manual evaluation Document reviewed and electronically signed by: ? Prudencio Mcgee, CT(ASCP) ? Report ??Date: 12/02/2016 15:55 HPV with Pap Test ? Date Ordered: ? 12/02/2016 ? Status: ?? Signed Out ?Date Complete: ? 12/03/2016 ? By: ??System Interface ? Date Reported: ? 12/03/2016 ? Interpretation RESULT: Negative for HPV. No E6 or E7 mRNA is detected from HPV types 16,18,31,33,35, 39,45,51,52,56,58, 59,66, and 68 by daycare director mediated amplification. Comments Document reviewed and electronically signed by: ? System Interface ? Report date: 12/03/2016 By the signature above, the attending physician certifies that he/she has personally conducted a gross and/or microscopic examination of the described specimens and rendered or confirmed the above diagnosis. End of Report [facility] 11/19/2016 11/23/2016 Mai Wong MD PATHOLOGY ORDERABLES [facility] [address] [place] [address] documented in this encounter Visit Diagnoses Not on filedocumented in this encounter Care Teams Clinical Physician Assistant Relationship Specialty Start Date End Date Mai Wong MD [address] [place] [address] PCP - General 02/20/15 documented as of this encounter
--- OUTSIDE RECORDS SUMMARY | 2024-03-13 13:23 | XMS_ITS | Encounter Summary ---
Author Organization [facility] Address [address] [place] [address] Care Team Providers Care Molecular Technologist Name Role Phone Unavailable Primary Care Provider Unavailabl e Encounter Details Date Type Department Care Team (Late st Contact Info) Description 10/19/2005 Results Only [facility] - Maple conversion [address] [place] [address] Edgard Fraser MD [address] [place] [id number] Social History Tobacco Use Types Packs/Day Years Used Date Smoking Tobacco: Never Assessed Sex and Gender Information Value Date Recorded Sex Assigned at Not on file Gender Identity Not on file Sexual Orientation Not on file documented as of this encounter Plan of Treatment Not on file documented as of this encounter Procedures Procedure Name Priority Date/Time Associated Diagnosis Comments CYTOPATHOLOGY Routine 10/19/2005 0:00 EDT documented in this encounter Results * CYTOPATHOLOGY (10/19/2005 0:00 EDT) Pathology Report: CYTOPATHOLOGY REPORT Reports generated via electronic interface contain original data; however they are lacking the format of the original report. Caution should be taken when reading/interpreti ng unformatted reports. Name: ? VICKY JONES ? Accession #: ? [id number] : ? 1955 (Age: 49) ??F ?Collect Date: ? 10/19/2005 Location: ? [facility] ? Receive Date: ? 10/21/2005 Provider: ?EDGARD FRASER MD Copy to: ? Specimen/Source: ?ThinPrep Pap Test, Cervix/Endocervix, processed on [employer] ThinPrep Imaging System, with manual evaluation Last Menstrual Period: ? Early May 06 Other: ? HPVA - HPV testing requested if ASC-US on the current ThinPrep Pap test. ? SPECIMEN ADEQUACY ? Satisfactory for Evaluation - transformation zone component absent GENERAL CATEGORIZATION ? Negative for Intraepithelial Lesion or Malignancy ? Document reviewed and electronically signed by: ? ANNABEL De Luna(ASCP) ? Report Date: ??10/26/2005 10:18 End of Report ASHLEY JOY 10/19/2005 10/21/2005 Edgard Fraser MD PATHOLOGY [facility] Performing Organization Address City/State/[facility] Co de Phone Number ASHLEY JOY [address] [place] [address] documented in this encounter Visit Diagnoses Not on filedocumented in this encounter
--- OUTSIDE RECORDS SUMMARY | 2024-03-13 13:23 | XMS_ITS | Encounter Summary ---
Author Organization [facility] Address [address] [place] [address] Care Team Providers Care Industrial Manufacturing Technician Name Role Phone Unavailable Primary Care Provider Unavailabl e Encounter Details Date Type Department Care Team (Late st Contact Info) Description 08/10/2005 17:28 EST Hospital Encounter [facility] [address] [place] [address] John Guerra, DO [address] [facility], [place] [address] Social History Tobacco Use Types Packs/Day Years [...] Procedure Name Priority Date/Time Associated Diagnosis Comments TESTOSTERONE, TOTAL AND FREE Routine 08/10/2005 17:23 EST T3 FREE Routine 08/10/2005 17:23 EST T4 FREE Routine 08/10/2005 17:23 EST documented in this encounter Results * (ABNORMAL) TOTAL & FREE TESTOSTERONE (08/10/2005 17:23 EST) Sex Hormone Binding Globulin 162.0(H) 18 - 114 nmol/L [facility] Testosterone, Total 55 14 - 76 ng/dl [facility] Testosterone, Free 0.2 0.1 - 1.5 ng/dl [facility] Comment: Test not recommended in patients with plasma protein abnormalities. 08/10/2005 17:2 3 EST 08/10/2005 17:25 EST John Guerra DO CHEMISTRY & BLOOD G ORDERABLES Performing Organization Address [facility] de Phone Number [facility] [address] [place] [address] * T4 FREE (08/10/2005 17:23 EST) Free T4 1.4 0.8 - 1.8 ng/dl [facility] 08/10/2005 17:2 3 EST 08/10/2005 17:25 EST John Guerra DO CHEMISTRY & BLOOD G ORDERABLES Performing Organization Address [facility] de Phone Number [facility] [address] [place] [address] * (ABNORMAL) T3 FREE (08/10/2005 17:23 EST) T3, Free 6.3(H) 2.3 - 4.2 pg/mL [facility] 08/10/2005 17:2 3 EST 08/10/2005 17:25 EST John Guerra DO CHEMISTRY & BLOOD G ORDERABLES Performing Organization Address [facility] de Phone Number [facility] [address] [place] [address] documented in this encounter Visit Diagnoses Not on filedocumented in this encounter
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
--- OUTSIDE RECORDS SUMMARY | 2024-03-13 13:23 | XMS_ITS | Encounter Summary ---
Author Organization [facility] Address [address] [place] [address] Care Team Providers Care Incinerator Plant General Supervisor Name Role Phone Mai Lilly MD Primary Care Provider [phone] Encounter Details Date Type Department Care Team (Late st Contact Info) Description 04/16/2019 Results Only [facility] - Main [address] [id number] Steff Petty [place] Social History Tobacco Use [...] Date/Time Associated Diagnosis Comments T4 FREE Routine 04/16/2019 13:00 EST documented in this encounter Results * T4 FREE (04/16/2019 13:00 EST) FREE [address] 0.87 0.78 - 2.19 ng/dl 04/16/2019 19:29 EST [facility] 04/16/2019 13:0 0 EST 04/16/2019 17:39 EST Steff Petty [place] CHEMISTRY & BLOOD GA S ORDERABLES [facility] documented in this encounter Visit Diagnoses Not on filedocumented in this encounter Care Teams Incinerator Plant General Supervisor Relationship Specialty Start Date End Date Mai Lilly MD [address] [place] [address] PCP - General 02/20/15 documented as of this encounter
--- OUTSIDE RECORDS SUMMARY | 2024-03-13 13:23 | XMS_ITS | Encounter Summary ---
Author Organization [facility] Address [address] [place] [address] Care Team Providers Care Financial Services Auditor Name Role Phone Unavailable Primary Care Provider Unavailabl e Encounter Details Date Type Department Care Team (Late st Contact Info) Description 09/09/2003 Results Only [facility] - Maple conversion [address] [place] [address] Unknown, Provider, Social History Tobacco Use Types Packs/Day Years Used Date Smoking Tobacco: Never Assessed Sex and Gender Information Value Date Recorded Sex Assigned at Not on file Gender Identity Not on file Sexual Orientation Not on file documented as of this encounter Plan of Treatment Not on file documented as of this encounter Procedures Procedure Name Priority Date/Time Associated Diagnosis Comments FOLATE Routine 09/09/2003 10:49 EDT VITAMIN B12 Routine 09/09/2003 10:49 EDT CORTISOL Routine 09/09/2003 10:49 EDT documented in this encounter Results * FOLATE (09/09/2003 10:49 EDT) Folate 17.5 ng/mL [facility] Comment: Deficient: ??Less than 3.4 ng/mL Indeterminate: ??3.4-5.4 ng/mL Normal: ??Greater than 5.4 ng/mL 09/09/2003 10:4 9 EDT 09/09/2003 22:11 EDT Provider Unknown CHEMISTRY & BLOOD GA S ORDERABLES Performing Organization Address [facility] Co de Phone Number [facility] [address] [place] [address] * CORTISOL (09/09/2003 10:49 EDT) Cortisol 6 ug/dl [facility] Comment: 7-9a.m.=4.3-22.4 3-5p.m.=3.1-16.7 09/09/2003 10:4 9 EDT 09/09/2003 22:11 EDT Provider Unknown CHEMISTRY & BLOOD GA S ORDERABLES Performing Organization Address [facility] Co de Phone Number [facility] [address] [place] [address] * VITAMIN B12 (09/09/2003 10:49 EDT) Vitamin B-12 498 250 - 1100 pg/ml [facility] 09/09/2003 10:4 9 EDT 09/09/2003 22:11 EDT Provider Unknown CHEMISTRY & BLOOD GA S ORDERABLES Performing Organization Address [facility] Co de Phone Number [facility] [address] [place] [address] documented in this encounter Visit Diagnoses Not on filedocumented in this encounter
--- OUTSIDE RECORDS SUMMARY | 2024-03-13 13:23 | XMS_ITS | Encounter Summary ---
Author Organization [facility] Address [address] [place] [address] Care Team Providers Care Bonsai Tender Name Role Phone Unknown, Provider Primary Care Provider [phone] Reason for Visit * Reason Onset Date Comments Appointment Related 02/13/2015 Encounter Details Date Type Department Care Team (Late st Contact Info) Description 02/13/2015 Telephone [facility] Memory Program - Medical Office Building [address] [place] [address] Laurent Higgins, PhD [address] [facility] Medical Office Building, [address] [place] [address] Appointment Related Social History Tobacco Use Types Packs/Day Years Used Date Smoking Tobacco: Never Assessed Sex and Gender Information Value Date Recorded Sex Assigned at Not on file Gender Identity Not on file Sexual Orientation Not on file documented as of this encounter Miscellaneous Notes * Telephone Encounter - Laurent Higgins, PhD - 02/13/2015 1351 EDT Returned call to Ms. Man. She had questions and concerns about appointment next week for neuropsychological testing. I reviewed format for day and briefly described areas to be assessed. She wasconcerned about not being able to tolerate the evaluation due to fatigue, indicating that she can only go about an hour and a half without resting. I suggested that we perhaps should cancel the appointment, but she insisted that she wanted to keep it and do her best to get through it. * Telephone Encounter - Ray, Fernwood H - 02/13/2015 1318 EDT Patient would like to know what is going to be done at her appointment next week. She would like specifics. She is available today, 02/13/15 until 2 pm and 02/14/15, in the afternoon. She can be reached at [phone]. documented in this encounter Plan of Treatment Not on file documented as of this encounter Visit Diagnoses Not on filedocumented in this encounter Care Teams Bonsai Tender Relationship Specialty Start Date End Date Unknown, Provider, PCP - General 02/20/14 02/19/15 documented as of this encounter
--- OUTSIDE RECORDS SUMMARY | 2024-03-13 13:23 | XMS_ITS | Encounter Summary ---
Author Organization [facility] Address [address] [place] [address] Care Team Providers Care Agricultural Equipment Design Engineer Name Role Phone Unavailable Primary Care Provider Unavailabl e Encounter Details Date Type Department Care Team (Latest Contact Info) Description 12/12/2001 10:36 EDT - 12/12/2001 11:59 EDT Hospital Encounter [facility] - Other [address] [place] [address] Edgard Fraser MD [address] [place] [id number] Unknown, ProviderMD Discharge Disposition: Auto Discharge Social [...] Priority Date/Time Associated Diagnosis Comments CYTOPATHOLOGY Routine 12/12/2001 0:00 EDT documented in this encounter Results * CYTOPATHOLOGY (12/12/2001 0:00 EDT) Pathology Report: CYTOPATHOLOGY REPORT Reports generated via electronic interface contain original data; however they are lacking the format of the original report. Caution should be taken when reading/interpreti ng unformatted reports. Name: ? JONES, PERRY M ? Accession #: ? [id number] : ? 1955 (Age: 45) ??F ?Collect Date: ? 12/12/2001 Location: ? [facility] ? Receive Date: ? 12/14/2001 Provider: ?EDGARD FRASER MD Copy to: ? Specimen/Source: ?ThinPrep Pap Test, Cervix/Endocervix Last Menstrual Period: ? 12/07/01 ? SPECIMEN ADEQUACY ? Satisfactory for Evaluation - transformation zone component present GENERAL CATEGORIZATION ? Other, see interpretation INTERPRETATION ? Endometrial cells present in a woman equal to or greater than age 40. Negative for Intraepithelial Lesion or Malignancy. ? COMMENT ? Benign appearing endometrial cells on Pap tests are usually a normal finding in women with regular menstrual cycles, especially if the Pap was collected during the first half of the menstrual cycle. ??There is data showing that endometrial cells on Pap tests may be associated with endometrial/uterin e abnormalities in post menopausal women or in premenopausal women with abnormal bleeding. ??There is limited data on the significance of benign endometrial cells in post menopausal women on HRT. ??Clinical correlation is recommended. Note: ?? The Pap test is not an accurate test for the screening of endometrial lesions and should not be used as a follow up in patients with clinical suspicion of endometrial pathology. ? Document reviewed and electronically signed by: ? Disha Amos, ??SCT(ASCP) ? Report Date: ??2001 12:50 End of Report [facility] 12/12/2001 12/14/2001 Edgard Fraser MD PATHOLOGY ORDERJennifer MORALES Performing Organization Address City/State/[facility] Co de Phone Number [address] [address] documented in this encounter Visit Diagnoses Not on filedocumented in this encounter
--- OUTSIDE RECORDS SUMMARY | 2024-03-13 13:23 | XMS_ITS | Encounter Summary ---
Author Organization [facility] Address [address] [place] [address] Care Team Providers Care Windows Admin Name Role Phone Unavailable Primary Care Provider Unavailabl e Encounter Details Date Type Department Care Team (Latest Contact Info) Description 03/29/2000 11:04 EST - 03/29/2000 11:59 EST Hospital Encounter [facility] - Other [address] [place] [address] Edgard Fraser MD [address] [place] [address] Unknown, ProviderMD Discharge Disposition: Auto Discharge Social [...] Priority Date/Time Associated Diagnosis Comments CYTOPATHOLOGY Routine 03/29/2000 0:00 EST documented in this encounter Results * CYTOPATHOLOGY (03/29/2000 0:00 EST) Pathology Report: CYTOPATHOLOGY REPORT Reports generated via electronic interface contain original data; however they are lacking the format of the original report. Caution should be taken when reading/interpreti ng unformatted reports. Name: ? VICKY JONES ? Accession #: ? [id number] : ? 1955 (Age: 44) ??F ?Collect Date: ? 03/29/2000 Location: ? [facility] ? Receive Date: ? 03/31/2000 Provider: ?EDGARD FRASER MD Copy to: ? Specimen/Source: ?ThinPrep Pap Test, Cervix/Endocervix Last Menstrual Period: ? 03/13/00 ? SPECIMEN ADEQUACY ? Satisfactory for evaluation but limited by an absence of a transformation zone component. GENERAL CATEGORIZATION ? Within Normal Limits ? Document reviewed and electronically signed by: ? Disha Amos, ??SCT(ASCP) ? Report Date: ??04/08/2000 07:43 End of Report [facility] 03/29/2000 03/31/2000 Edgard Fraser MD PATHOLOGY [facility] [address] [place] [address] documented in this encounter Visit Diagnoses Not on filedocumented in this encounter
--- OUTSIDE RECORDS SUMMARY | 2024-03-13 13:23 | XMS_ITS | Encounter Summary ---
Author Organization [facility] Address [address] [place] [address] Care Team Providers Care Broomcorn Seeder Name Role Phone Unavailable Primary Care Provider Unavailabl e Encounter Details Date Type Department Care Team (Late st Contact Info) Description 05/09/2007 Results Only [facility] - Maple conversion [address] [place] [address] Edgard Fraser MD [address] [place] [id number] Social History Tobacco Use Types Packs/Day Years Used Date Smoking Tobacco: Never Assessed Sex and Gender Information Value Date Recorded Sex Assigned at Not on file Gender Identity Not on file Sexual Orientation Not on file documented as of this encounter Plan of Treatment Not on file documented as of this encounter Procedures Procedure Name Priority Date/Time Associated Diagnosis Comments CYTOPATHOLOGY Routine 05/09/2007 0:00 EST documented in this encounter Results * CYTOPATHOLOGY (05/09/2007 0:00 EST) Pathology Report: CYTOPATHOLOGY REPORT Reports generated via electronic interface contain original data; however they are lacking the format of the original report. Caution should be taken when reading/interpreti ng unformatted reports. Name: ? VICKY JONES ? Accession #: ? [id number] : ? 1955 (Age: 51) ??F ?Collect Date: ? 05/09/2007 Location: ? [facility] ? Receive Date: ? 05/11/2007 Provider: ?EDGARD FRASER MD Copy to: ? Specimen/Source: ?ThinPrep Pap Test, Source Not Provided, processed on [employer] Bi[employer]Prep Imaging System, with manual evaluation Last Menstrual Period: ? Other: ? HPVA - HPV testing requested if ASC-US on the current ThinPrep Pap test. ? SPECIMEN ADEQUACY ? Satisfactory for Evaluation - transformation zone component present GENERAL CATEGORIZATION ? Negative for Intraepithelial Lesion or Malignancy INTERPRETATION ? Shift in carla present suggestive of bacterial vaginosis. ? Document reviewed and electronically signed by: ? Edgard Vergara, ANNABEL(ASCP) ? Report Date: ??05/15/2007 09:58 End of Report [facility] 05/09/2007 05/11/2007 Edgard Fraser MD PATHOLOGY [facility] [address] [place] [address] documented in this encounter Visit Diagnoses Not on filedocumented in this encounter
--- OUTSIDE RECORDS SUMMARY | 2024-03-13 13:23 | XMS_ITS | Encounter Summary ---
Author Organization [facility] [place] [address] Care Team Providers Care Cloth Classer Name Role Phone Mai Lilly MD Primary Care Provider [phone] Reason for Visit * Speech Therapy (Routine) - Closed Specialty Diagnoses / Procedures Referred By Chantel t Referred To Contact Speech Pathology / Speech Therapy Diagnoses TBI (traumatic brain injury), without loss of consciousness, subsequent encounter Work related injury Darlin Richardson APRN [facility] [place] [address] [facility] [place] [address] Referral ID Status Reason Start Date Expiration Date V isits Requested Visits Authorized [id number] Closed Evaluate and Treat 11/17/2015 11/16/2016 1 1 Encounter Details Date Type Department Care Team (Late st Contact Info) Description 12/16/2015 10:00 AM EDT Office [place] [phone] Cammie Gallo, SITE PROJECT MANAGER [facility] [place] [address] Attention and concentration deficit Social History Tobacco Use Types Packs/Day Years Used Date Smoking Tobacco: Former Smokeless Tobacco: Never Sex and Gender Information Value Date Recorded Sex Assigned at Not on file Gender Identity Not on file Sexual Orientation Not on file documented as of this encounter Progress Notes * Cammie Gallo - 12/16/2015 10:00 AM EDT Speech-Language Pathology Evaluation Report Test Date: 12/16/2015 Referral: Darlin Richardson Diagnosis: Cognitive-Linguistic Weaknesses s/p TBI. Attention and concentration deficit, R41.840 Evaluation Time: 120 Timed Code Cognitive Evaluation with Report Presenting Problem: This 59 yo female was referred for this Cognitive Assessment by DANILO Richardson. Per Isaiah, she suffered a work related injury when she fell down some stairs, suffering a brief period of LOC on 02/15/14. Isaiah suffered a concussive brain injury as well as some orthopedic injuries, including a broken leg. Per Dr. Dennis's 10/16/15 office visit note, Her [Isaiah's] greatest concerns are that her information processing speed and comprehension, as well as her ability to multitask are diminished since the concussion. She has been doing on [sic] online cognitive training, has recently started some neuro bio feedback (also online, I believe) and feels she has made some gains, but remains concerned [...] sense of mental fatigue, and with this comes speech hesitancies and stuttering (which I witnessed at the end of our visit). She also feels very low energy and great fatigue that worsens over the course of the day. She knows she snores as she has woken herself up snoring and has to sleep on her side to get any decent sleep. Prior Medical History: Only concussion was listed in our [facility] patient records. Current Symptoms as outlined in Dr. Dennis's office note): ?? Bodily aches and pains - right heel pain, leg and hip pain ?? Feeling cognitively/mentally ???foggy? Decreased cognitive processing speed ?? Difficulty with attention and focus ?? Short term memory problems ?? Difficulty with judgment, reason ?? Difficulty with problem solving ?? Word finding problems ?? Stuttering ?? Mental and cognitive fatigue ?? Physical fatigue ?? Trouble sleeping Medications: Current Outpatient Prescriptions on File Prior to Visit Medication Sig Dispense Refill ??? propranolol (INDERAL LA) 60 mg Capsule,Sustained Action 24 hr Take 60 mg by mouth daily. ??? acetaminophen-codeine (TYLENOL #3) 300-30 mg Tablet Take 1 tablet by mouth as needed for Pain. ??? cyclobenzaprine (FLEXERIL) 10 mg Tablet Take 10 mg by mouth as needed for Muscle spasms. ??? multivitamin (THERAGRAN) Tablet Take 1 tablet [...] tablet by Misc.(Non-Drug; Combo Route) route daily. No current facility-administered medications on file prior to visit. Academic/Vocational: Isaiah graduated from the [employer] with a degree in Art History. She reported that she was [employer] [place] and Magna Cum Laude, which is why she was dissatisfied withresults of neuropsychological testing performed in [place], [place] (results of which were unavailable at this time) that indicated normal cognitive function as scores reportedly were within the average to high average range. 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 She is unable to work at this time. Social: Isaiah lives alone in [place], [place]. EVALUATION Hearing/Vision: Both were informally deemed WFL for purposes of testing. Cognitive-Linguistic Skills: Assessed via administration of the SPENCER (General Ability Measure for Adults), an age-normed and timed test of non-verbal problem solving using designs that represented concepts including analogies, matching, construction, and sequences. Also conducted a lengthy patient interview. Would have also administered a formal memory test and other cognitive probes, but Isaiah expressed discomfort and fatigue during the SPENCER testing and by the time she left the speech room, shewas reportedly quite fatigued. ?? On the SPENCER, Isaiah obtained a SPENCER IQ score of 116, a percentile score of 86%, and a Confidence Interval at 90% of between 107-122, scores which placed her in the high average SPENCER IQ score range when compared with age peers in the area of non-verbal problem solving. There were no significant individual subtest deviations but Isaiah expressed the fact that the construction concepts, which required that she rotate particular shapes to form new patterns, were particularly difficult for her. She completed 57/66 items or 86% of the test items. After the test was completed, Isaiah relayed that at about item #19 she began to feel icky and had to push through some of the more challenging items. After testing when I told her that she did not need to complete the entire test, she noted that this was not the best thing to tell an overachiever. ?? Multiple times during this visit, Isaiah reported that she was intolerant of lengthy conversational exchanges and provision of information. ?? Isaiah is currently using the Constant Therapy program, which she has found to be helpful. I may consider checking her work on this program when I see her next time. She has found it to be helpful because her work is checked and there is oversight whereas with the Lumosity program, there is no oversight or monitoring of pacing or selection of appropriate cognitive activities. Briefly outlined the program I have used here, entitled neuropsychonline. One of the reasons why I have encouraged manyof my patients to trial this program is because I can set their roster and monitor progress remotely. The current TBI research indicates efficacy with computer programs that have clinician oversight and input. Isaiah provided a hand-out about a program currently being used in [place], [place] by Johnny Abarca. According to the hand-out, Johnny is a member of a therapy group who call their practice [place]. It is entitled NeurOptimal Neurofeedback from the [facility]. The phone contact numberprovided is [phone]. The program is an offshoot of biofeedback. Details were provided in the hand-out. Isaiah has found this program to be quite helpful as it incorporates music into a relaxation program. Isaiah has also found cranio-sacral and acupuncture to be helpful. ?? Isaiah also reported that she is unable to nap and when she needs to zone out watches old TV shows and reads drug safety data management specialist novels that are less demanding cognitively. The old films consist of familiarplot lines. Isaiah described herself as being visually dependant and currently can only read 15-20 pages at a time. ?? Did not note any word retrieval difficulties during this visit, but per Martinez, had she undergone additional testing or a lengthier visit today, she likely would have exhibited difficulties finding words. Fluency: Not problematic during this visit but Isaiah admitted to some dysfluency with fatigue especially. Diagnostic Impressions: Isaiah presented today with chronic symptoms s/p TBI sustained on 02/15/14, including reduced cognitive endurance; mental fogginess; word retrieval challenges when fatigued; mental challenges when faced with complex visual stimuli; persistent hyper-sensitivity to external stimuli; and reduced processing speed during lengthy conversations. She is a good test taker, which isn't surprising given her reported high cognitive functioning at baseline. She likely is functioning at a significantly lower overall level than she was prior to her injury. Recommendations: Follow up skilled ST services with inclusion of appropriate compensatory strategies. Provided a HEP for completion prior to Isaiah's first f/u ST visit, consisting of deductive reasoning/logic puzzles from book A1 of [place]. Asked that Isaiah monitor her endurance and time spent on the assigned tasks. Goals: Include successful completion of a written HEP over three consecutive ST sessions as well assuccessful completion of a cognitive computer program that is tailored to meet Isaiah's needs (individual tasks have outlined criteria for passing all four levels of difficulty). Will check Isaiah's current status on the Constant Therapy program first to avoid duplicating tasks. Frequency/Duration: For now, four f/u one hour visits have been scheduled on days that Isaiah is scheduled to see OT Leah Estrella. Will coordinate therapy goals with Leah in order to maximize therapeutic support. Thank you very much for this referral. Cammie Gallo M.S., [facility]-SITE PROJECT MANAGER Speech-Language Pathologist Pager# [phone] documented in this encounter Plan of Treatment Scheduled Referrals Name Type Priority Associated Diagnoses Orde r Schedule Referral to Speech Therapy Outpatient Referral Routine TBI (traumatic brain injury), without loss of consciousness, subsequent encounter Work related injury Ordered: 11/17/2015 documented as of this encounter Visit Diagnoses Diagnosis Attention and concentration deficit Attention or concentration deficit documented in this encounter Care Teams Cloth Classer Relationship Specialty Start Date End Date Mai Lilly MD [address] [place] [address] PCP - General Family Medicine 12/03/15 documented as of this encounter
--- OUTSIDE RECORDS SUMMARY | 2024-03-13 13:23 | XMS_ITS | Encounter Summary ---
Author Organization [facility] Address [facility] [place] [address] Care Team Providers Care Distillery Worker Name Role Phone Mai Lilly MD Primary Care Provider [phone] Encounter Details Date Type Department Care Team (Latest Contact Info) Description 01/29/2016 1:00 PM EDT Office Visit [place] [address] Leah Estrella, OT Attention and concentration deficit; [...] Progress Notes * Leah Estrella, OT - 01/29/2016 1:00 PM EDT OCCUPATIONAL THERAPY TREATMENT NOTE Visit 4 REFERRAL SOURCE: Darlin Richardson DIAGNOSIS: 1. Attention and concentration deficit 2. Work related injury 3. TBI (traumatic brain injury), without loss of consciousness, subsequent encounter NEXT MD FOLLOW UP: TBA TOTAL TREATMENT TIME: 55 minutes TIMED CODE TREATMENT TIME: TFA 55 minutes Therapeutic / Functional Activities (87470) 55 min HISTORY: Isaiah Man is a [...] symptoms and referred to occupational therapy and CONFERENCE ORGANIZER for evaluation and treatment. Isaiah Man presents [...] Deck of cards, record sheet Min cues for 1st trial 10 mins to review and discuss 1min and 22 seconds to complete with 2 errors Plan for Isaiah to complete as home program 1 - 3 times daily and track progress Modified MET- provided list of 6 rules for 7 minute dual-tasking activity 6 activities broken into Part I and Part II with 3 categories, lists, cards, and catalogue search with delong restrictions Sitting in room with dimmed lights- minimal distraction Deck of cards, onlinecatalogue ([employer]Intern [place]) Min A to set up Set timer to assist in time management Prioritized doing 1 part of each category During card task used strategy of after every read card- having a second pile so able to add cards together Missed 1 rule of changing pen color for Part II tasks Went over by 19 seconds Will trial to repeat these dual tasking at home with increased time and difficulty PQRST strategy for videos and reading material (Isaiah reports that reading retention is not an issuebut that she is challenged by sensory stimulation/overload/density of new material) Tried a 2 min video on [employer].org on TBI recovery: http://www.brainline.org/content/multimedia.php?pk=2540 Sitting in room with dimmed lights Computer, PQST strategy print out, video Min A 20 minsCaro used the PQRST strategy verbally; she also took notes during the video; she did not believe that she would learn any new information related to the video but afterwards stated that she didn't know about titration of activity level related to symptoms; she also discussed how being 2 years post injury she needs to work through more symptoms than previously- she also reports she did not get conc ussion education s/p her injury and did not take time off from work Plan to track symptoms, video length, and new knowledge learned from watching short [employer] educational/support videos ASSESSMENT: Isaiah Man is making progress and believes that OT and CONFERENCE ORGANIZER are helpful for her recovery. She reports that after last session she had difficulty driving home and had a significant headache, however, the next day felt a little clearer. She has been given several home activities to work on including N back working memory, PQRST for short videos/increasing screen time, as well as dual- tasking modified MET task. Isaiah's goals are to improve her ability to process information, self pace, multi-task, tolerate screen time, in prep for return to work (notably her prior job was dissolved and pt wants to seek new employment when able). These impairments have a significant impact on thepatient's performance in the following areas of occupation: BADLs, IADLs, rest/sleep, education, work, leisure, driving, and social participation. Next visit: [facility] Goals (to be met by discharge): Date [...] encounter documented in this encounter Care Teams Distillery Worker Relationship Specialty Start Date End Date Mai Lilly MD [address] [place] [address] PCP - General Family Medicine 12/03/15 documented as of this encounter
--- OUTSIDE RECORDS SUMMARY | 2024-03-13 13:23 | XMS_ITS | Encounter Summary ---
Author [facility] Address [facility] [place] [address] Care Team Providers Care Consultant Education Name Role Phone Mai Lilly MD Primary Care Provider [phone] Encounter Details Date Type Department Care Team (Late st Contact Info) Description 01/29/2016 11:00 AM EDT Office Visit [place] [address] Cammie Gallo, CONSTRUCTION SALES REPRESENTATIVE [facility] [address] PHYSICAL MEDICINE & [place] [address] Attention and concentration deficit Social History Tobacco Use Types Packs/Day Years Used Date Smoking Tobacco: Former Smokeless Tobacco: Never Sex and Gender Information Value Date Recorded Sex Assigned at Not on file Gender Identity Not on file Sexual Orientation Not on file documented as of this encounter Progress Notes * Cammie Gallo - 01/29/2016 11:00 AM EDT Speech-Language Pathology Treatment session 01/29/16 Total Timed Code Treatment: 64 min for cognitive skills S: ?? Michelle reported being very tired this am and having a LONGORIA. ?? Michelle said that after processing the group visit last time, she decided that she provided more assistance to her partner than she received in return so prefers to work individually as she is here for herself. She was apparently frustrated enough after the last visit that she was unable to focus to work on her computer tasks much last week. Suggested that in the future if she has any frustrationor questions/concerns r/t her therapy, she contact me directly. I apologized for the group session,agreeing to continue to work with Michelle individually. O: STG is successful completion of all four levels of difficulty on targeted tasks from the [employer] computer software program. Most tasks require 100% accuracy and timed tasks have time requirements that vary from task to task. LTG is successful re-entry into the community with ability to return to some type of viable employment. ?? Reviewed computer tasks on Michelle's roster. Michelle successfully passed two of her Serial Addition trials before making an error, which put her back at the beginning again because no errors are allowed. Suggested a way to avoid going all the way back to the start of level 1 again if Michelle feels that the frustration of repeating another two trials outweighs the benefit of repeated practice without making any errors. ?? Michelle explained that while she passed level 1 of Simply Logical and is now on level 2, she has been frustrated when unable to successfully get a pass at this level because she now needs to figure out the colors and color locations of four instead of only three colors, given seven attempts. She has experienced some confusion about the position of the various colors given cues about how many colors as well as color positions are correct. For example, one color combination might be green, green,blue, yellow and this color combination must be figured out after seven trials. I suggested that ifMichelle is inaccurate after seven trials, she simply click on Quit and attempt the task again. There is a logical solution for each individual sequence and Michelle must spend the time and intensive focus/concentration on each successive attempt in order to achieve success. ?? Michelle had reached three consecutive passes at levels 1 and 2 of Follow My Instructions (Visual) and today passed level 3 so is at the highest level 4. At the highest level, one is provided with complex commands without having a visual stimulus until the written command goes away. Michelle seemed to handle the memory constraint well as long as she spoke aloud as a mnemonic cue to maximize recall of the colored shape sequences. For example, given the instruction to Click on the purple rincon before you click on the red rincon, but after you click on the purple triangle, she needed to figure outand repeat the sequence purple rincon, purple triangle and then red rincon after the written command disappeared and the color shapes were on the screen. Michelle appeared to be very focused as well as successful with this task. When she passes all four levels, she will automatically (when she clicks on Rerun) move to the next task under the Communication Skills panel, entitled Follow My Instructions(Auditory). Michelle feels that this task will be quite challenging for her as even at baseline, she needed visual cues to solidify and retain information received. I suggested that she attempt this taskbut at higher levels, if she thinks she would have been challenged at baseline, she should let me know and I can adjust her roster so that she tackles another task would not have been challenging at baseline but which is challenging now. ?? Spent a little time discussing Michelle's future career/job goals. 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 I suggested that she might also consider speaking to professionals and/or survivorsabout brain injuries, given her acquisition of helpful tools to deal with her pain and other chronic TBI sequelae. A: ?? Good session today. Michelle made it clear that she prefers to work individually on her own cognitive-linguistic challenges post TBI and she expressed her pleasure with the neuropsychonline program aswe are addressing her individual needs in areas including Executive Function, Problem Solving and Communication Skills (the latter addressing following complex commands presented visually as well as auditorily). The tasks being tackled currently involve sustained attention, divided attention, complex problem solving, and working memory. P: ?? Adjust computer program roster as warranted to best address Michelle's individual needs. ?? Review computer items completed. Check progress. ?? Colon agreed with this plan. Cammie Gallo M.S., [facility]CONSTRUCTION SALES REPRESENTATIVE Pager#[phone] documented in this encounter Plan of Treatment Not on file documented as of this encounter Visit Diagnoses Diagnosis Attention and concentration deficit Attention or concentration deficit documented in this encounter Care Teams Consultant Education Relationship Specialty Start Date End Date Mai Lilly MD [address] [place] [address] PCP - General Family Medicine 12/03/15 documented as of this encounter
--- OUTSIDE RECORDS SUMMARY | 2024-03-13 13:23 | XMS_ITS | Referral Summary ---
Author Organization [facility] Address [address] [place] [address] Care Team Providers Care Shoe Coverer Name Role Phone Mai Lilly MD Primary Care Provider [phone] Social History Tobacco Use Types Packs/Day Years Used Date Smoking Tobacco: Never Assessed Interpersonal Safety Answer Date Record ed Physically Hurt Never 12/30/2019 Verbally Threaten Not on file 12/30/2019 Sex and Gender Information Value Date Recorded Sex Assigned at Not on file Gender Identity Not on file Sexual Orientation Not on file Plan of Treatment Not on file Care Teams Shoe Coverer Relationship Specialty Start Date End Date Mai Lilly MD [address] [place] [address] PCP - General 02/20/15
--- OUTSIDE RECORDS SUMMARY | 2024-03-13 13:23 | XMS_ITS | Clinical Summary ---
Author Organization [facility] Address [address] [place] [address] Care Team Providers Care Healthcare Associate Name Role Phone Mai Lilly MD Primary Care Provider [phone] Social History Tobacco Use Types Packs/Day Years Used Date Smoking Tobacco: Never Assessed Interpersonal Safety Answer Date Record ed Physically Hurt Never 12/30/2019 Verbally Threaten Not on file 12/30/2019 Sex and Gender Information Value Date Recorded Sex Assigned at Not on file Gender Identity Not on file Sexual Orientation Not on file Plan of Treatment Health Maintenance Due Date Last Done Comments Hepatitis C Screen 1955 RSV Immunization ( o r 60+ Years) (1 - 1-dose 60+ series) 2014 Fall Risk Screening 12/20/2019 COVID-19 Vaccine ( season) 2023 Care Teams Healthcare Associate Relationship Specialty Start Date End Date Mai Lilly MD [address] [place] [phone] PCP - General 02/20/15
--- OUTSIDE RECORDS SUMMARY | 2024-03-13 13:23 | XMS_ITS | Encounter Summary ---
Author Organization [facility] Address [address] [place] [address] Care Team Providers Care Mender Hand Name Role Phone Mai Lilly MD Primary Care Provider [phone] Encounter Details Date Type Department Care Team (Late st Contact Info) Description 06/26/2019 Results Only [facility] - Main [address] [id number] Faalice, Steff Costello, CHAYA Social History Tobacco Use Types Packs/Day Years Used Date Smoking Tobacco: Never Assessed Sex and Gender Information Value Date Recorded Sex Assigned at Not on file Gender Identity Not on file Sexual Orientation Not on file documented as of this encounter Plan of Treatment Not on file documented as of this encounter Procedures Procedure Name Priority Date/Time Associated Diagnosis Comments T3 FREE Routine 06/26/2019 15:00 EST TSH Routine 06/26/2019 15:00 EST documented in this encounter Results * T3 FREE (06/26/2019 15:00 EST) T3,FREE [facility] 3.3 2.8 - 4.4 pg/mL 06/28/2019 16:21 EST [facility] Comment: Test Performed by: [facility] [address] [place] [address] Acidizer Helper: Edison Lee M.D. Ph.D.; CLIA# [id number] 06/26/2019 15:0 0 EST 06/26/2019 18:31 EST Steff Costello Jarretalice ND CHEMISTRY & BLOOD GA S ORDERABLES Performing Organization Address City/[facility]/ZIP Co de Phone Number [facility] * TSH (06/26/2019 15:00 EST) Pathologist [facility] THYROID STIM [facility]ORMONE - [facility] [place] 0.65 0.46 - 4.68 uIU/ml 06/26/2019 20:03 EST [facility] Comment: The results of this assay can be falsely lowered due to the consumption of Biotin. 06/26/2019 15:0 0 EST 06/26/2019 18:31 EST Steff Petty ND CHEMISTRY & BLOOD GA S ORDERABLES Performing Organization Address [facility] Co de Phone Number [facility] documented in this encounter Visit Diagnoses Not on filedocumented in this encounter Care Teams Mender Hand Relationship Specialty Start Date End Date Mai Lilly MD [address] [place] [phone] PCP - General 02/20/15 documented as of this encounter
--- OUTSIDE RECORDS SUMMARY | 2024-03-13 13:23 | XMS_ITS | Encounter Summary ---
Author Organization [facility] Address [address] [place] [address] Care Team Providers Care Heel Nailing Machine Operator Name Role Phone Mai Lilly MD Primary Care Provider [phone] Encounter Details Date Type Department Care Team (Late st Contact Info) Description 04/16/2019 Results Only [facility] - Main [address] [id number] Faalice, Steff Costello, CHAYA Social History Tobacco [...] Date/Time Associated Diagnosis Comments T3 FREE Routine 04/16/2019 13:00 EST TSH Routine 04/16/2019 13:00 EST documented in this encounter Results * T3 FREE (04/16/2019 13:00 EST) T3,FREE [facility] 3.4 2.8 - 4.4 pg/mL 04/17/2019 20:26 EST [facility] Comment: Test Performed by: [facility] [address] [place] [id number] Television Production Assistant: Edison Lee M.D. Ph.D.; CLIA# [id number] 04/16/2019 13:0 0 EST 04/16/2019 17:39 EST Steff Petty ND CHEMISTRY & BLOOD GA S ORDERABLES Performing Organization Address City/[facility]/ZIP Co de Phone Number [facility] * TSH (04/16/2019 13:00 EST) Pathologist [facility] THYROID STIM [facility] [place] [facility] 1.20 0.46 - 4.68 uIU/ml 04/16/2019 19:29 EST [facility] Comment: The results of this assay can be falsely lowered due to the consumption of Biotin. 04/16/2019 13:0 0 EST 04/16/2019 17:39 EST Steff Petty ND CHEMISTRY & BLOOD GA S ORDERABLES Performing Organization Address [facility] Co de Phone Number [facility] documented in this encounter Visit Diagnoses Not on filedocumented in this encounter Care Teams Heel Nailing Machine Operator Relationship Specialty Start Date End Date Mai Lilly MD [address] [place] [phone] PCP - General 02/20/15 documented as of this encounter
--- OUTSIDE RECORDS SUMMARY | 2024-03-13 13:23 | XMS_ITS | Encounter Summary ---
Author Organization [facility] Address [facility] [place] [place] [address] Care Team Providers Care District Adviser Name Role Phone Champ Arroyo DO Primary Care Provider [phone] Encounter Details Date Type Department Care Team (Late st Contact Info) Description 08/13/2015 - 08/13/2015 11:59 PM EDT Hospital Encounter Radiology Library [place] [address] Melinda Dennis MD [facility] [place] [address] Pain Discharge Disposition: Home Social History Tobacco Use Types Packs/Day Years Used Date Smoking Tobacco: Never Assessed Sex and Gender Information Value Date Recorded Sex Assigned at Not on file Gender Identity Not on file Sexual Orientation Not on file documented as of this encounter Plan of Treatment Not on file documented as of this encounter Procedures Procedure Name Priority Date/Time Associated Diagnosis Comments FILM LIBRARY STORAGE ONLY MR HEAD Routine 08/13/2015 12:00 AM EDT Pain documented in this encounter Results * Film Library- Storage Only MR Head (08/13/2015 12:00 AM EDT) Narrative RAD - 03/02/2016 8:51 AM EDT This exam is for storage only and is auto-finalizing. Melinda Dennis MD IMG FILM LIBRARY O RDERABLES [place], [place] documented in this encounter Visit Diagnoses Diagnosis Pain Generalized pain documented in this encounter Care Teams District Adviser Relationship Specialty Start Date End Date Champ Arroyo DO [facility] [address] [place] [address] PCP - General 04/21/10 10/15/15 documented as of this encounter
--- OUTSIDE RECORDS SUMMARY | 2024-03-13 13:23 | XMS_ITS | Encounter Summary ---
Author Organization [facility] Address [facility] [place] [address] Care Team Providers Care Fuel Manager Name Role Phone Mai Lilly MD Primary Care Provider [phone] Encounter Details Date Type Department Care Team (Late st Contact Info) Description 01/21/2016 11:00 AM EDT Office [place] [address] Cammie Gallo, PROOF COINS INSPECTOR [facility] DR PHYSICAL MEDICINE & [place] [address] Attention and concentration deficit Social History Tobacco Use Types Packs/Day Years Used Date Smoking Tobacco: Former Smokeless Tobacco: Never Sex and Gender Information Value Date Recorded Sex Assigned at Not on file Gender Identity Not on file Sexual Orientation Not on file documented as of this encounter Progress Notes * Cammie Gallo - 01/21/2016 11:00 AM EDT Speech-Language Pathology Treatment session 01/21/16 Total Timed Code Treatment: 31min for cognitive skills S: ?? Isaiah agreed to join another TBI survivor for a group therapy visit today. ?? Did not check Isaiah's pain level today and she did not report it. O: ?? Although Isaiah initially seemed a little reluctant to undergo a group treatment session, after this visit she reported to OT as well as to me that the visit was quite worthwhile. She indicated thather interaction with the other survivor reminded her how far she has come from where she was earlier in her recovery. ?? Isaiah provided multiple pieces of information to the other survivor based on her own experience, always prefacing her recommendations with appropriate acknowledgement that her recs were based on her own needs and situation. She cautioned the other survivor to check with her health professionals first to ensure her own safety. ?? Isaiah was able to succinctly relay information about her head injury and sequelae, also discussing our current political candidates for President, presenting valid arguments for support of her candidate. ?? Isaiah said that she has observed steps forward this past week. She informed her TBI partner todaythat she has benefited from use of a white board at home with to-do and appointment information, watching old westerns on TV that are slower paced allowing more time for information processing, etc. ?? Isaiah also reported on her alternative method of falling asleep as her partner also has sleep problems. Propanolol has worked best for Isaiah's headaches. A: ?? Martinez reported that this week's group visit was helpful as meeting with another TBI survivor who isn't as far out from her injury as is Isaiah revealed to her how far she has come. Martinez was quite helpful to her TBI partner as she has taken advantage of as many traditional as well as alternative medicine alternative as she can in order to maximize return of baseline function. P: ?? Adjusted computer program roster. ?? Review computer items completed. Cammie Gallo M.S., [facility]PROOF COINS INSPECTOR Pager#[phone] documented in this encounter Plan of Treatment Not on file documented as of this encounter Visit Diagnoses Diagnosis Attention and concentration deficit Attention or concentration deficit documented in this encounter Care Teams Fuel Manager Relationship Specialty Start Date End Date Mai Lilly MD [address] [place] [address] PCP - General Family Medicine 12/03/15 documented as of this encounter
--- OUTSIDE RECORDS SUMMARY | 2024-03-13 13:23 | XMS_ITS | Encounter Summary ---
Author Organization [facility] Address [address] [place] [address] Care Team Providers Care Singing Teacher Name Role Phone Mike Johnson MD Primary Care Provider + Encounter Details Date Type Department Care Team (Late st Contact Info) Description 05/28/2013 Results Only [facility] [phone] Bryanna Bryant, JOSEPH [address] [facility] [address] [place] [address] Social History Tobacco Use Types Packs/Day Years [...] Diagnosis Comments PAP TEST- RESULT ONLY Routine 05/28/2013 0:00 EST documented in this encounter Results * PAP TEST- RESULT ONLY (05/28/2013 0:00 EST) Pathology Report: CYTOPATHOLOGY REPORT Reports generated via electronic interface contain original data; however they are lacking the format of the original report. Caution should be taken when reading/interpreti ng unformatted reports. Name: ? VICKY JONES ? Accession #: ? [id number] ? : ? 1955 (Age: 57) ??F ?Collect Date: ? 05/28/2013 ? Location: ? [facility] ? Receive Date: ? 06/06/2013 ? Provider: BRYANNA BRYANT LAYER OUT Copy to: ? Final Report SPECIMEN ADEQUACY ? Satisfactory for Evaluation - assessment of transformation zone component not applicable ( e.g. atrophy, vaginal sample, hysterectomy) GENERAL CATEGORIZATION ? Negative for Intraepithelial Lesion or Malignancy ?? Menstrual/Pregnanc y Status: ??Menopausal Other: Additional clinical information: NL 2010 Specimen/Source: ??Pap Test, Source Not Provided, Unowhy Imaging System with manual evaluation Document reviewed and electronically signed by: ? ANNABEL De Luna(ASCP) ? Report ??Date: 06/08/2013 14:48 HPV with Pap Test ? Date Ordered: ? 06/08/2013 ? Status: ?? Signed Out ?Date Complete: ? 06/12/2013 ? By: ??System Interface ? Date Reported: ? 06/12/2013 ? Interpretation RESULT: Negative for HPV. No E6 or E7 mRNA is detected from HPV types 16,18,31,33,35, 39,45,51,52,56,58, 59,66, and 68 by topographical engineer mediated amplification. Test not validated for this type of specimen or collection method. The sensitivity and specificity of the test in this situation are unknown. The results should be interpreted with caution. Comments Document reviewed and electronically signed by: ? System Interface ? Report date: 06/12/2013 By the signature above, the attending physician certifies that he/she has personally conducted a gross and/or microscopic examination of the described specimens and rendered or confirmed the above diagnosis. End of Report [facility] 05/28/2013 06/06/2013 Bryanna Bryant SCHEDULING AGENT PATHOLOGY ORDERABLES Performing Organization Address City/State/[facility] Co de Phone Number [facility] [address] [place] [address] documented in this encounter Visit Diagnoses Not on filedocumented in this encounter Care Teams Singing Teacher Relationship Specialty Start Date End Date Mike Johnson MD [address] [place] [id number] PCP - General 11/18/10 02/19/14 documented as of this encounter
--- OUTSIDE RECORDS SUMMARY | 2024-03-13 13:23 | XMS_ITS | Encounter Summary ---
Author Organization [facility] Address [address] [place] [address] Care Team Providers Care Floral Assistant Name Role Phone Mike Johnson MD Primary Care Provider + Encounter Details Date Type Department Care Team (Late st Contact Info) Description 11/17/2010 Results Only [facility] Laboratory Services - [facility] [address] [place] [id number] Raul Liang MD Social History Tobacco Use Types Packs/Day Years [...] Diagnosis Comments PAP TEST- RESULT ONLY Routine 11/17/2010 0:00 EDT documented in this encounter Results * PAP TEST- RESULT ONLY (11/17/2010 0:00 EDT) Pathology Report: CYTOPATHOLOGY REPORT ? Reports generated via electronic interface contain original data; ? however they are lacking the format of the original report. ? Caution should be taken when reading/interpreti ng unformatted reports. ? Name: ? VICKY JONES ? Accession #: ? [id number] ? : ? 1955 (Age: 54) ??F ?Collect Date: ? 11/17/2010 ? Location: ? [facility] ? Receive Date: ? 11/19/2010 ? Provider: ?RAUL LIANG MD ? Copy to: ? Specimen/Source: ?Pap Test, Cervix, ThinPrep Imaging System with manual ?? evaluation ? Last Menstrual Period: ? 2004 ? SPECIMEN ADEQUACY ? Satisfactory for Evaluation ? - assessment of transformation zone component not applicable ( e.g. atrophy, ? vaginal sample, hysterectomy) ? GENERAL CATEGORIZATION ? Negative for Intraepithelial Lesion or Malignancy ? Document reviewed and electronically signed by: ? Chaya [place], [place](ASCP) ? Report Date: ??11/25/2010 14:51 ? End of Report ? [facility] 11/17/2010 11/19/2010 Raul Liang MD PATHOLOGY ORDERABLES Performing Organization Address City/State/[facility] Co de Phone Number [facility] [address] [place] [address] documented in this encounter Visit Diagnoses Not on filedocumented in this encounter Care Teams Floral Assistant Relationship Specialty Start Date End Date Mike Johnson MD [address] [place] [address] PCP - General 11/18/10 02/19/14 documented as of this encounter
[2024-03-13 14:31] LABS: ALT 30 U/L (14-59); AST 39 U/L (15-37); Albumin 3.7 g/dL (3.4-5.0); Alkaline Phosphatase 92 U/L (46-116); Anion Gap 9.4 mmol/L (3-11); BUN 13 mg/dL (7-18); Bilirubin, Total 0.53 mg/dL (0.2-1.0); CO2 26.6 mmol/L (21.0-32.0); CREATININE 0.8 mg/dL (0.55-1.02); Calcium 9.2 mg/dL (8.5-10.1); Calculated LDL 159 mg/dL (<100); Chloride 106 mmol/L (98-107); Cholesterol 242 mg/dL (<200); Estimated GFR 79.71 (mL/min/1.73m2); Glucose 99 mg/dL (74-106); HDL Cholesterol 66 mg/dL (40-60); Potassium 3.8 mmol/L (3.5-5.1); Sodium 142 mmol/L (136-145); TSH 2.59 uIU/mL (0.36-3.74); Total Protein 7.3 g/dL (6.4-8.2); Triglyceride 86 mg/dL (<150)
== END 2024-03-13 13:13 | disposition home or self-care (01) ==
LOC: NCHCN 13:12
PROVIDERS: PCP Family Medicine; Visit Provider Family Medicine
DX: E78.5 Hyperlipidemia, unspecified (principal); R03.0 Elevated blood-pressure reading, without diagnosis of hypertension; E03.9 Hypothyroidism, unspecified
CPT/HCPCS: 80053; 80061; 84443

== ENCOUNTER → 2024-05-31 13:54 | Outpatient (BNVA) | payer MEDICARE, OTHER, SELFPAY | PROVIDERS: PCP Family Medicine; Referring Provider Family Medicine; Visit Provider Surgery | DX: R13.10 Dysphagia, unspecified (principal); R13.19 Other dysphagia; K21.9 Gastro-esophageal reflux disease without esophagitis; K22.2 Esophageal obstruction; Z80.0 Family history of malignant neoplasm of digestive organs | CPT/HCPCS: 99203 ==

== ENCOUNTER 2024-06-22 06:11 | Day surgery (SDC) | payer MEDICARE, OTHER, SELFPAY ==
--- NOTE | 2024-06-21 14:12 | W.PM.DSUDISC ---
Date of service: 06/22/24 Discharge Plan Disposition Patient Disposition: Home Condition: Good Discharge Details Reason For Visit: egd Attending Provider: Elke Welch Primary Care Provider: Tina Caputo Home Meds and New Rx's Prescriptions: New pantoprazole [Protonix] 40 mg tablet,delayed release (DR/EC) 40 mg PO DAILY Qty: 90 6RF Continued acetaminophen-codeine 300-30 mg tablet 1 - 3 tab PO Q4H PRN Rx Instructions: for pain. MDD 8 tablets alpha lipoic acid 100 mg capsule 100 mg PO BID calcium citrate 250 mg calcium tablet 250 mg PO DAILY cholecalciferol (vitamin D3) 25 mcg (1,000 unit) capsule 25 mcg PO DAILY cyclobenzaprine 10 mg tablet 10 mg PO TID PRN Rx Instructions: for severe pain. diazepam 5 mg tablet 5 - 10 mg PO DAILY PRN Rx Instructions: for severe anxiety fluoxetine 10 mg capsule 10 mg PO DAILY magnesium stearate Powder miscellaneous DAILY vitamin B complex Capsule 1 cap PO DAILY Lion's Gianni PO DAILY omega-3 fatty acids 1,000 mg capsule 1,000 mg PO DAILY Discharge Instructions Additional Instructions: Post EGD Instruction ?You had anesthesia for your EGD/stomach scope today.? For your safety, please do the following for the next twenty-four (24) hours: Do Not operate a motor vehicle (car, truck, motorcycle, etc.) Do Not drink alcoholic beverages or use any recreational drugs for the first 24 hours or while taking pain medications. The medications in your body may have a reaction that can be dangerous. Do Not make any important decisions or sign any important papers You have just had a gastroscopy (EGD) or upper GI tract examination. It is important for your smooth recovery that you carefully follow the recommendations below. Do not hesitate to call if any questions should arise about your anesthesia, condition, or care. -Symptoms you may experience during the next 24 hours: ?1. Mild abdominal pain or excessive gas or a bloated feeling which improves with rest, liquids, eating? slightly, and walking as tolerated. 2. Drowsiness and/or forgetfulness because of the medications you were given. 3. A sore throat which you can treat with throat lozenges or by gargling with salt water 4-5 times a day. 4. Redness at the site of your IV which you can treat with warm compresses. SPECIAL INSTRUCTIONS: 1. You may resume your previous diet in one hour. We recommend a light meal to start, then progress as tolerated. 2. Restart regular medications in one hour. 3. No lifting over 20 pounds or strenuous activity for the first 24 hours after your procedure. After 24 hours there are no restrictions on your activity, but you may feel fatigued for a few days. -Findings:Hiatal hernia/erosive esophagitis/bile reflux gastritis -Medications: protonix -Continue to follow lifestyle modifications: No alcohol, tobacco products, Aspirin or NSAID's (ibuprofen, Motrin, Naprosyn, aleve, etc).? Try to limit/avoid:? soda pop/any carbonated beverages, caffeine (including tea & chocolate), and acidic foods, (tomatoes, citrus, onions, peppermints) spicy or fried/fatty foods. Do not lie down for 30 minutes after eating, and do not eat 2 hours prior to bedtime. Avoid wearing tight fitting clothing/ belts. Follow up: -My office will send a letter with the results of your biopsy?s in 2-3wks time. September 17 9:30am Call the office at [phone] (Office) or [phone] (Hospital), or go to the ER right away if you notice any of the followin. Vomiting blood and /or ?coffee ground? material. ?2. Worsening of abdominal pain or cramping. ?3. Trouble with breathing, cough, and/or fever (temperature above 101.5 F). 4. Increasing pain with swallowing. ?5. Chest pain. 6. Any new symptoms. 7. Worsening of the redness at the IV site Stand Alone Forms: Anesthesia Discharge InstClaire, Robbie Calabrese (DSU) Activity:: see above Diet:: see above Discharge Orders Discharge Orders: Discharge Order (Routine); Ordered 06/22/24 Ordered By: Elke Welch DS: Diagnosis Discharge Diagnosis (1) Esophageal dysphagia: Status: Acute (2) GERD (gastroesophageal reflux disease): Status: Chronic Asessment and Plan: Patient is seen and examined after they are endoscopy.? Patient has minimal sore throat.? They have been able to tolerate liquids.? They do not have any nausea vomiting.? They are not having any chest pain or shortness of breath.? They have been able to pass gas and are not having any abdominal pain or distention.? They have not vomited any blood.? The vital signs have been stable-see nursing notes. We discussed findings on their endoscopy. We reviewed the importance of lifestyle modification-see discharge instructions We reviewed any new medications that the patient may be prescribed-see discharge instructions Patient will either be sent a letter with the biopsy results or follow-up in the office-see discharge instructions. Patient was given explicit instructions to follow-up regarding post endoscopy-refer to discharge Patient verbalized understanding and discharged in stable and satisfactory condition.? See nursing notes. (3) Erosive esophagitis: Status: Acute (4) Bile reflux gastritis: Status: Acute (5) Hiatal hernia with GERD: Status: Acute
--- NOTE | 2024-06-21 14:16 | W.PM.ENDDOP ---
Date of service: 06/22/24 Time of Service: 09:25 Endoscopy Report DATE OF PROCEDURE: 06/22/24 PRE-OP DIAGNOSIS: gerd/dysphagia POST-OP DIAGNOSIS: other (esophagitis w/ ulceration/4cm sliding type hiatal hernia/bile reflux gastritis-moderate) SURGEON: Elke Welch ANESTHESIA TYPE: General LMA/ETT ESTIMATED BLOOD LOSS: 2 PATHOLOGY: other COMPLICATIONS: None DISPOSITION: PACU PROCEDURE DESCRIPTION: Informed consent was obtained from the pt; explaining the benefits and Risks: bleeding, infections, perforations {which could require surgery or antibiotics and prolonged hospital stay}, or ostomy, and complications of anaesthesia, raúl aspiration). The patient was take to the procedure room and placed in a supine position. Monitors were applied and a time out was done. The patients name, date of , procedure type, allergies to medications and metal in their body was reviewed. A bite block was placed and the patient was sedated. Once sedated and comfortable an Olympus gastroscope (see RN notes for scope #) was advanced through the oropharynx which was grossly normal, and passed into the esophagus. The proximal and mid-esophagus were normal. The distal esophagus does not show any: dilation/strictures/varices/bleeding noted. She has grade B esophagitis in 2 ulcers are noted in the esophagus. There is no active bleeding. There is no stricturing. Upon entering the stomach there was a large amount of bile noted. Bile is noted to be actively refluxing through the pylorus. The scope was advanced into the stomach and through the pylorus into the proximal jejunum. The duodenum was noted to be normal. Biopsies were done of the duodenal bulb. She has moderate gastritis radiating from the antrum in a straight fashion. There is no signs of active bleeding. There is no ulceration. The scope was retracted back into the stomach and biopsies were taken of the antrum. There were gastropathy/ ulcers/masses noted. The scope was retroflexed. The cardia and fundus were noted to be normal. There 4cm a hiatal hernia noted. The hiatus is also quite patulous. The scope was retracted back into the esophagus and biopsies were done of the GE junction (in all 4 quadrants) and distal esophagus (2cm above the GE junction) to rule out Toledo's. All specimens are retrieved and no bleeding was noted. The Z line was irregular. The GE junction was at 36 cm. The scope was removed and the patient was woken up and taken back to [facility] in stable condition.
[2024-06-22] VITALS (10 sets, daily range): BP systolic 110–161; BP diastolic 70–103; PULSE 62–91; RESP 13–20; TEMP 36.3–36.5; O2SAT 94–99; BMI 25.0
--- OUTSIDE RECORDS SUMMARY | 2024-06-22 06:13 | XMS_ITS ---
Author Organization Unknown Address [address] [place], [place] [id number] Phone Care Team Providers Care Supervisor Bleach Plant Name Role Phone VERONICA Bryant Attending Unavailable ANNETTA Feliciano Primary Unavailable Social History Type Status Start Date End Date Code Code Syst em Smoking History Former smoker 1969 12/19/19890965 5141769 SNOMED CT Sex Female Hospital Discharge Instructions [...] Co de Code System SULFA (sulfonamide) Active 45273763 SNO MED-CT PREDNISONE Active 8640 RxNorm Plan of Treatment MM SCREEN BILAT 12/13/2023 MM SCREEN BILAT 04/13/2021 Encounters Encounter Diagnosis Start Date Code Code Sys tem Refusal of treatment by patient 06/04/2022 925379912 SNOMED-CT Personal Care Team Section Performer Name Performer Role Active Date Inactive Da te
--- OUTSIDE RECORDS SUMMARY | 2024-06-22 06:13 | XMS_ITS ---
Author Organization Unknown Address [address] [place] [phone] Phone Care Team Providers Care Patent Searcher Name Role Phone VERONICA Bryant Attending Unavailable ANNETTA Feliciano Primary Unavailable Results XR FOOT 3V RT* - Completed: 06/04/2022 14:35 LOINC: [place], [place] [address] PACS PHARMACIST AIDE REPORT Patient Name: ROBERTISAIAH MRN: Sex: : Age: [id number] F 1955 [id number] Account: Accession: Admit: StayType: [id number] 06/04/2022 CLINIC Ordered: Order ID: Submitted: Ordering Provider: 06/04/2022 13:04 [id number] [facility] [place] АННА MARTIN Completed: Technologist: [...] Syst em Smoking History Former smoker 1969 12/19/19893736 [id number] SNOMED CT Sex Female Hospital Discharge Instructions [...] Co de Code System SULFA (sulfonamide) Active 44816235 SNO MED-CT PREDNISONE Active 8640 RxNorm Plan of Treatment MM SCREEN BILAT 12/13/2023 MM SCREEN BILAT 04/13/2021 Encounters Encounter Diagnosis Start Date Code Code Sys tem Plantar fascial fibromatosis 06/04/2022 [id number] SNOMED-CT Personal Care Team Section Performer Name Performer Role Active Date Inactive Da te
--- OUTSIDE RECORDS SUMMARY | 2024-06-22 06:14 | XMS_ITS | Encounter Summary ---
Author Organization [facility] [place] [address] Care Team Providers Care Time Analysis Clerk Name Role Phone Mai Lilly MD Primary Care Provider [phone] Encounter Details Date Type Department Care Team (Latest Contact Info) Description 05/11/2016 1:00 PM EST Office Visit [place] [address] Cammie Gallo, INSTRUCTOR EXTENSION WORK Attention and concentration deficit Social History Tobacco [...] be done the old way. O: ?? 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 Most tasks require 100% [...] first step would be to interview medical laboratory manager as well as TBI survivors to help [...] options as outlined previously. Will confer with BHUMIKA Estrella about this plan. If Worker's Comp supports the deferral of skilled services and then resumption when pain is better managed,will cancel upcoming ST visits and await Isaiah's go-ahead when her pain is under control. Cammie Gallo M.S., [facility]-INSTRUCTOR EXTENSION WORK Pager#[phone] documented in this encounter Plan of Treatment Not on file documented as of this encounter Visit Diagnoses Diagnosis Attention and concentration deficit Attention or concentration deficit documented in this encounter Care Teams Time Analysis Clerk Relationship Specialty Start Date End Date Mai Lilly MD [address] [place] [address] PCP - General Family Medicine 12/03/15 documented as of this encounter
--- OUTSIDE RECORDS SUMMARY | 2024-06-22 06:14 | XMS_ITS | Encounter Summary ---
Author Organization [facility] Address [facility] [place] [address] Care Team Providers Care Protection Analyst Name Role Phone Mai Lilly MD Primary Care Provider [phone] Encounter Details Date Type Department Care Team (Latest Contact Info) Description 11/22/2016 10:00 AM EDT Office [place] [address] Sheila Trujillo, SURGICAL PRODUCT SALES CONSULTANT Attention and concentration deficit Social History Tobacco Use Types Packs/Day Years Used Date Smoking Tobacco: Former Smokeless Tobacco: Never Sex and Gender Information Value Date Recorded Sex Assigned at Not on file Gender Identity Not on file Sexual Orientation Not on file documented as of this encounter Progress Notes * Sheila Trujillo, SURGICAL PRODUCT SALES CONSULTANT - 11/22/2016 10:00 AM EDT Speech-Language Pathology [...] as well as Brain Yoga and Brain Qiwi Post computer cognitive games/programs. In addition, suggestion has [...] ?? Isaiah provided me w/ her email [email or web address] to maintain communication ?? A: ?? Isaiah [...] has begun seeing Occupational Medicine group in [facility] as well as working w/ vocationalrehab. Hopes to transfer all her care to that team as it is closer to her. Isaiah's ultimate goal is to return to work, and feels need for ongoing support to move forward, which I agree with, ??She would continue to benefit from cognitive-linguistic therapy at this time to support this buttermaker helper goal. Sheila Trujillo MA, CCC-SURGICAL PRODUCT SALES CONSULTANT [facility] Rehabilitation Medicine [phone] pager:# [phone] [email or web address] documented in this encounter Plan of Treatment Not on file documented as of this encounter Visit Diagnoses Diagnosis Attention and concentration deficit Attention or concentration deficit documented in this encounter Care Teams Protection Analyst Relationship Specialty Start Date End Date Mai Lilly MD [address] [place] [address] PCP - General Family Medicine 12/03/15 documented as of this encounter
--- OUTSIDE RECORDS SUMMARY | 2024-06-22 06:14 | XMS_ITS | Encounter Summary ---
[place] [address] Care Team Providers Care Attendance Secretary Name Role Phone Mai Lilly MD Primary Care Provider [phone] Encounter Details Date Type Department Care Team (Late st Contact Info) Description 02/16/2017 Telephone [place] [phone] Arlette Nunez, RN Social History Tobacco Use [...] on filedocumented in this encounter Care Teams Attendance Secretary Relationship Specialty Start Date End Date Mai Lilly MD [address] [place] [address] PCP - General Family Medicine 12/03/15 documented as of this encounter
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
--- OUTSIDE RECORDS SUMMARY | 2024-06-22 06:14 | XMS_ITS | Encounter Summary ---
Author Organization [facility] [place] [place] [address] Care Team Providers Care Broker Associate Name Role Phone Mai Lilly MD Primary Care Provider [phone] Encounter Details Date Type Department Care Team (Latest Contact Info) Description 10/11/2016 2:00 PM EDT Office [place] [address] Leah Estrella, OT Attention and concentration deficit; [...] symptoms and referred to occupational therapy and NURSING INSTRUCTOR for evaluation and treatment. Isaiah Man presents [...] TREATMENT TODAY: Isaiah saw Dr. Robertson in [place] an salesperson handbags. She was prescribed prism reading glasses. She has been doing better with reading due to the glasses. Isaiah was seen by a chiropractor- she has been getting adjustments to C1 and C2. She reports that these adjustments have helped tremendously. She went to [place] for a week-she used noise cancelling headphones [...] vocational rehab (who is hired by the [facility]). The possible plan is a month of volunteer work, one month of job search, and the third month is supported work. She has another ELKE planned for November 01-occupational medicine who will complete the return to work. She has been using the seat builder for the ipad and has been able to tolerate 30 mins on the computer. OT had suggested Looxcie dictation for verbal dictation of thoughts in [...] making progress and believes that OT and NURSING INSTRUCTOR are helpful for her recovery. Isaiah plans [...] challenging) Dictation software Look at tbi booklet Undergraduate Advisor Goals (to be met by discharge): Date [...] 3 visits to progress toward short and custodial goals. for Cognitive retraining attention, sequencing, problem [...] site documented in this encounter Care Teams Broker Associate Relationship Specialty Start Date End Date Mai Lilly MD [address] [place] [address] PCP - General Family Medicine 12/03/15 documented as of this encounter
--- OUTSIDE RECORDS SUMMARY | 2024-06-22 06:14 | XMS_ITS | Encounter Summary ---
Author Organization Formerly [facility] [place] [address] Care Team Providers Care Chief Client Officer Name Role Phone Mai Lilly MD Primary Care Provider [phone] Encounter Details Date Type Department Care Team (Late st Contact Info) Description 03/13/[address] [facility] in [address] [id number] Anil Dixon, EXECUTIVE WELLNESS PROGRAMS DIRECTOR [address] [place] [address] Social History Tobacco Use Types Packs/Day Years [...] Procedure Name Priority Date/Time Associated Diagnosis Comments XR WRIST 3 VIEWS LEFT Routine 03/13/2024 3:33 PM EDT documented in this encounter Results * XR Wrist 3 Views Left (03/13/2024 3:33 PM EDT) PT CLASS O RAD ADMITDTTM RAD PT RAD INFO [id number]^TA TEL^ANIL^S RAD EXAM DESC [id number]^XR WRIST 3V W NAVICULAR LT^RIS RAD WORKSTATION ID [id number] RAD Anatomical Region Laterality Modality Left Radiographic Justine ging Impressions 03/13/2024 5:02 PM EDT 1. ??Masslike soft tissue density along the dorsal aspect of the distal forearm could represent a hematoma in the context of recent trauma. ??However, underlying soft tissue mass cannot be excluded on the basis of radiograph alone. ??If this finding does not demonstrate expected resolution over the next 4-6 weeks on clinical examination, MR with contrast is recommended to evaluate for an underlying soft tissue mass. 2. ??No underlying bone destruction. 3. ??No underlying fracture. If there is anatomic snuffbox tenderness or strong clinical concern for radiographically occult scaphoid fracture, recommend empiric immobilization and repeat radiographs in 7-10 days. Thank you for letting us participate in the care of this patient. ??If you are a health care provider and have any questions regarding this report, please contact the number below. ??For patients who have questions please contact the health child care leader that requested your imaging first. ? Electronically signed by: Maura Garcias MD, [facility] ([phone]), at 03/13/2024 5:02 PM Narrative 03/13/2024 5:02 PM EDT EXAMINATION: XR WRIST 3V W NAVICULAR LT CLINICAL HISTORY: ??Reason for Extrem: ??LT WRIST INJURY ??Add'l Info: (as entered by ordering provider in the order requisition) TECHNIQUE: PA, oblique, lateral, and scaphoid views of the right wrist. COMPARISON: None FINDINGS: Masslike soft tissue density along the dorsal aspect of the distal forearm. ??No underlying osseous destruction or osseous erosion. ??No underlying fracture or malalignment. ??Mild 1st carpal metacarpal and triscaphe joint space narrowing. Procedure Note Maura Garcias MD - 03/13/2024 EXAMINATION: XR WRIST 3V W NAVICULAR LT CLINICAL HISTORY: Reason for Extrem: LT WRIST INJURY Add'l Info: (asentered by ordering provider in the order requisition) TECHNIQUE: PA, oblique, lateral, and scaphoid views of the right wrist. COMPARISON: None FINDINGS: Masslike soft tissue density along the dorsal aspect of the distalforearm. No underlying osseous destruction or osseous erosion. No underlying fractureor malalignment. Mild 1st carpal metacarpal and triscaphe joint spacenarrowing. IMPRESSION 1. Masslike soft tissue density along the dorsal aspect of the distalforearm could represent a hematoma in the context of recent trauma. However,underlying soft tissue mass cannot be excluded on the basis of radiograph alone. Ifthis finding does not demonstrate expected resolution over the next 4-6 weekson clinical examination, MR with contrast is recommended to evaluate for an underlying soft tissue mass. 2. No underlying bone destruction. 3. No underlying fracture. If there is anatomic snuffbox tenderness orstrong clinical concern for radiographically occult scaphoid fracture,recommend empiric immobilization and repeat radiographs in 7-10 days. Thank you for letting us participate in the care of this patient. If youare a health care provider and have any questions regarding this report,please contact the number below. For patients who have questions please contactthe health child care leader that requested your imaging first. Electronically signed by: Maura Garcias MD, [facility]([phone]), at 03/13/2024 5:02 PM Anil Dixon EXECUTIVE WELLNESS PROGRAMS DIRECTOR IMG DX ORDERABLES documented in this encounter Visit Diagnoses Not on filedocumented in this encounter Care Teams Chief Client Officer Relationship Specialty Start Date End Date Mai Lilly MD [address] [place] [address] PCP - General Family Medicine 12/03/15 documented as of this encounter
--- OUTSIDE RECORDS SUMMARY | 2024-06-22 06:14 | XMS_ITS | Encounter Summary ---
[place] [address] Care Team Providers Care Teacher Aide Clerical Name Role Phone Mai Lilly MD Primary Care Provider [phone] Encounter Details Date Type Department Care Team (Late st Contact Info) Description 02/16/2017 Telephone [place] [phone] Alondra Avina DO Social History Tobacco Use Types Packs/Day Years [...] on filedocumented in this encounter Care Teams Teacher Aide Clerical Relationship Specialty Start Date End Date Mai Lilly MD [address] [place] [address] PCP - General Family Medicine 12/03/15 documented as of this encounter
--- OUTSIDE RECORDS SUMMARY | 2024-06-22 06:14 | XMS_ITS | Encounter Summary ---
[place] [address] Care Team Providers Care It Security Consultant Name Role Phone Mai Lilly MD Primary Care Provider [phone] Encounter Details Date Type Department Care Team (Late st Contact Info) Description 02/26/2016 [place] [phone] Melinda Dennis MD [facility] [place] [address] Social History Tobacco Use Types Packs/Day Years [...] MRI images of the brain requested from [facility]. Faxed written request. documented in this encounter Plan of Treatment Not on file documented as of this encounter Visit Diagnoses Not on filedocumented in this encounter Care Teams It Security Consultant Relationship Specialty Start Date End Date Mai Lilly MD [address] [place] [address] PCP - General Family Medicine 12/03/15 documented as of this encounter
--- OUTSIDE RECORDS SUMMARY | 2024-06-22 06:14 | XMS_ITS | Encounter Summary ---
Author Organization [facility] [place] [address] Care Team Providers Care Detailer Name Role Phone Mai Lilly MD Primary Care Provider [phone] Reason for Visit * Reason Onset Date Comments Other 08/18/2016 Encounter Details Date Type Department Care Team (Late st Contact Info) Description 08/18/2016 [place] [address] Tea Hayden [place] [facility] [place] [address] Other Social History Tobacco Use Types Packs/Day [...] Work Status OOW (starting volunteering at [employer]) Treating Provider Managing WC Yes Managing Provider Name Neurologist [facility] Managing Provider Number [facility] Valery Allan [phone] Receiving Wage Replacement Yes Do you have a Workers' Comp Contact? Yes Workers' Compensation Contact Name RUKHSANA todd # [id number] Workers' Compensation Contact Number adjuster piano action; Kierra Reagan # [phone] Is there an director housekeeping for Workers' Compensation No Was there an ELKE? (to be scheduled ) Previous WC claims through the DOL? No MMI? No CCM Was consulted by [facility] admin staff: Mariaelena Pizarro to help address pt's wc issues. Reviewed edh record, noting pt's previous encounters w/ and Lala Richardson, but w/ no f/u appts w/ either providers. Pt is scheduled to f/u w/ [facility] OT and PT, after taking a respite from tx, which OT documented. Phoned to assess needs. 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 reports this recommendation was promoted by the [facility] NCM that attended her appt in place of NCM: Valery Lemus. 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 insurance ie: [employer], claim # [id number], adjuster piano action: Kierra Reagan # [phone]. Pt is now introduced to Voc Rehab, and has a counselor she is actively working with ie: Constance Edwards. Ms. 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 [facility] addressed the options for pt to be referred to [facility] Occ Med MD if her insurance authorized such, noting that this MD to address the wc issues and work capacity, likely ordering a CFCE to better ascertain her work capability, as pt's Neurologist is currently expected to serve in this role. Pt is not scheduled for f/u appts w/ or Lala Richardson at [facility], and [facility] questioned if is overseeing the Neuro Rehab tx that she is still engaged in at [facility]. Pt was not sure if was receiving the notes from OT and WEB MARKETING MANAGER, and [facility] relayed plan to collaborate w/ Neuro Rehab team to address this question, and f/u appt needs w/ either or Vonnie. [facility] relayed plan to mail her the [place] dpt of labor brochure on know your rights recommending she utilize this resource re: questions about Voc Rehab involvement. Pt was most appreciative of [facility]'s contact, and [facility]us to address potential [facility] referral needs w/ Occ med or for a CFCE. [facility] spoke w/ Valery Lemus [facility] # [phone] fax # [phone] on 08-18 re: my Contact w/ Ms. Man and to address potential [facility] referral needs. [facility] noted that pt is likely to have an ELKE scheduled so the option to introduce additional tx providers may be on hold due to the ELKE needs, however she did endorse the benefit of the Occ med referral and CFCE noting plan to address this w/ the PMA adjuster piano action accordingly. [facility] invited NCM to f/u w/ me if in need of assistance w/ the aforementioned referrals, pending adjuster piano action's approval. Phoned pt back on 08-18 to relay contact w/ [facility] re: the Occ med and CFCE potential referral needs, inviting pt to f/u w/ me PRN. No other immediate needs identified at this time. P: [facility] will be available to help facilitate Occ med and/or CFCE referral needs PRN. [facility] will collaborate w/ [facility] tx team re; the above encounter and recommendations,intervening as needed. documented in this encounter Plan of Treatment Not on file documented as of this encounter Visit Diagnoses Not on filedocumented in this encounter Care Teams Detailer Relationship Specialty Start Date End Date Mai Lilly MD [address] [place] [address] PCP - General Family Medicine 12/03/15 documented as of this encounter
--- OUTSIDE RECORDS SUMMARY | 2024-06-22 06:14 | XMS_ITS | Encounter Summary ---
Author Organization Formerly [facility] Address [facility] [place] [address] Care Team Providers Care Necktie Maker Name Role Phone Mai Lilly MD Primary Care Provider Encounter Details Date Type Department Care Team (Latest Contact Info) Description 04/13/2016 3:30 PM EST Office Visit Speech Therapy at [facility] [place] [address] Cammie Gallo, SPECIAL ASSEMBLIES SUPERVISOR Attention and concentration deficit Social History Tobacco [...] of difficulty on targeted tasks from the [employer] computer software program. Most tasks require 100% [...] agreed with this plan. Cammie Gallo M.S., CCC-SPECIAL ASSEMBLIES SUPERVISOR Pager#[phone] documented in this encounter Plan of Treatment Not on file documented as of this encounter Visit Diagnoses Diagnosis Attention and concentration deficit Attention or concentration deficit documented in this encounter Care Teams Necktie Maker Relationship Specialty Start Date End Date Mai Lilly MD [address] [place], [place] [address] PCP - General Family Medicine 12/03/15 documented as of this encounter
--- OUTSIDE RECORDS SUMMARY | 2024-06-22 06:14 | XMS_ITS | Encounter Summary ---
Author Organization Formerly [facility] Address [facility] [place] [address] Care Team Providers Care Log Preparer Name Role Phone Mai Lilly MD Primary Care Provider [phone] Encounter Details Date Type Department Care Team (Latest Contact Info) Description 03/03/2016 2:30 PM EDT Office [place] [address] Leah Estrella, OT Attention and concentration deficit; [...] TFA 55 minutes Therapeutic / Functional Activities (33143) 55 min HISTORY: Isaiah Man is a [...] symptoms and referred to occupational therapy and PAINT TRIMMER PIPE BOWLS for evaluation and treatment. Isaiah Man presents [...] found the n back ipad darrin through [email or web address] and has graduated to level 2; she is very pleased with this and reports she believes it is helping with her working memory Self pacing with family visitation in [place] 20 mins Isaiah reports she worked to pre- plan the trip for [facility] and worked for 2-4 hrs [...] task of map reading skills ([facility] the [facility] section below) in prep for IADls Task: ?? Locate locations on map ?? Prioritize the map ?? Write directions between the locations Sitting [facility] 20 mins 13 mins and 44 seconds [...] she was very fatigued after the activity [facility] Skills For this activity you need a local stores/routes map. [place]/[facility] Region ??? Here is a list of 8 afternoon chores, they do not need to be done in any specific order- find the most efficient route and write out the directions between these places: 1. screen making supervisor lunch at the [facility] 2. screen making supervisor your tickets for the next show at the [facility] 3. Go for a walk at the [employer] behind the [facility] 4. screen making supervisor your prescription at the [facility] pharmacy 5. Return a sweater your mother got you at [employer] 6. screen making supervisor milk, eggs, and bread for Bulgarian toast for tomorrow???s breakfast 7. Drop off your library books in [place] 8. Return home to [place], [place] ASSESSMENT: Isaiah Man is making progress and believes that OT and PAINT TRIMMER PIPE BOWLS are helpful for her recovery. Isaiah reports that she is pleased with the slow but forward progress she is making through OT and PAINT TRIMMER PIPE BOWLS. Isaiah completed several visual selective attention tasks [...] employment skills (math tasks are not challenging) Shelter Goals (to be met by discharge): Date Goal Met: 1.) Isaiah Man will complete ADL/IADL independently at a level of 8/10 on the PSFS. Goal Status: In Progress 2.) Isaiah aMn will be able to resume all occupational [...] 6-12 week(s) to progress toward short and snf goals. for Cognitive retraining attention, sequencing, problem [...] encounter documented in this encounter Care Teams Log Preparer Relationship Specialty Start Date End Date Mai Lilly MD [address] [place] [address] PCP - General Family Medicine 12/03/15 documented as of this encounter
--- OUTSIDE RECORDS SUMMARY | 2024-06-22 06:14 | XMS_ITS | Encounter Summary ---
Author Organization [facility] [place] [address] Care Team Providers Care Bark Peeler Name Role Phone Mai Lilly MD Primary Care Provider [phone] Encounter Details Date Type Department Care Team (Latest Contact Info) Description 08/24/2016 1:00 PM EDT Office [place] [phone] Cammie Gallo, PLANT PACKER Attention and concentration deficit Social History Tobacco [...] for day to day headache pain but Colon feels that she has also benefited from [...] I received a phone message from Michelle's VRS nurse life care planner, Valery, and attempted to call catherine but [...] of difficulty on targeted tasks from the neuropsychonline computer software program. Most tasks require 100% [...] use of a toric lens advised by auto job estimator Dr. Champ Robertson. This MD had apparently [...] services to monitor Michelle's work on the [employer] computer software program as well as to [...] to return to work. Cammie Gallo M.S., CCC-PLANT PACKER Pager#[phone] documented in this encounter Plan of Treatment Not on file documented as of this encounter Visit Diagnoses Diagnosis Attention and concentration deficit Attention or concentration deficit documented in this encounter Care Teams Bark Peeler Relationship Specialty Start Date End Date Mai Lilly MD [address] [place] [address] PCP - General Family Medicine 12/03/15 documented as of this encounter
--- OUTSIDE RECORDS SUMMARY | 2024-06-22 06:14 | XMS_ITS | Encounter Summary ---
Author Organization [facility] [place] [address] Care Team Providers Care Weir Fisherman Name Role Phone Mai Lilly MD Primary Care Provider [phone] Encounter Details Date Type Department Care Team (Latest Contact Info) Description 05/11/2016 2:30 PM EST Office [place] [address] Leah Estrella, OT Attention and concentration deficit; [...] symptoms and referred to occupational therapy and MEDICATION RECONCILIATION TECHNICIAN for evaluation and treatment. Isaiah Man [...] making progress and believes that OT and MEDICATION RECONCILIATION TECHNICIAN are helpful for her recovery. Isaiah plans to take a short break from OT while she is receiving treatment through her neurologist for her headaches. She reports that she believes she will make better progress after her headaches improve, which is a valid and reasonable decision. Isaiah is considering 1 hr of volunteering per w [place] and is working on a writing project [...] employment skills (math tasks are not challenging) Care Home Goals (to be met by discharge): [...] 3 visits to progress toward short and rodent exterminator goals. for Cognitive retraining attention, sequencing, [...] site documented in this encounter Care Teams Weir Fisherman Relationship Specialty Start Date End Date Mai Lilly MD [address] [place] [address] PCP - General Family Medicine 12/03/15 documented as of this encounter
--- OUTSIDE RECORDS SUMMARY | 2024-06-22 06:14 | XMS_ITS | Encounter Summary ---
Author Organization [facility] Address [facility] [place] [address] Care Team Providers Care Nurse Researcher Name Role Phone Mai Lilly MD Primary Care Provider [phone] Reason for Visit * Reason Comments Visual Disturbance * Consultation (Routine) - Closed Specialty Diagnoses / Procedures Referred By Chantel t Referred To Contact Ophthalmology Diagnoses visual tracking deficit? (fall 3.5 yrs ago) Cole Constantino MD [address] [place] [phone] Elham Valdivia MD [facility] [place] [address] Referral ID Status Reason Start Date Expiration Date V isits Requested Visits Authorized [id number] Closed Consult, Test & Treat 09/16/2017 09/16/2018 1 1 Encounter Details Date Type Department Care Team (Late st Contact Info) Description 12/12/2017 2:00 PM EDT [place] [address] Elham Valdivia MD [facility] [place] [address] Unspecified visual disturbance; Retinal lesion Social History [...] in the right eye. Normal left eye Elahm Valdivia MD OPHTHALMOLOGY SE RVICES ORDERABLES * OCT OPTIC [id number] EYES (12/12/2017 3:33 PM EDT) Anatomical Region [...] RNFL OU Elham Valdivia MD OPHTHALMOLOGY SE [employer] ORDERABLES * SENSORIMOTOR EXAM [WA SPECIAL EYE EXAM] - OU- BOTH EYES (12/12/2017 3:22 PM EDT) Anatomical Region Laterality Modality Other Narrative 12/12/2017 3:22 PM EDT Orthotropic in all directions of gaze Elham Valdivia MD OPHTHALMOLOGY SE [employer] ORDERABLES * AUTOMATED VISUAL FIELD - EXTENDED - OU- BOTH EYES (12/12/2017 3:22 PM EDT) Anatomical Region Laterality Modality Other Narrative 12/12/2017 3:22 PM EDT Right Eye Threshold was 24-2. Strategy was CAITLYN. Reliability was good. Findings include normal observations. Left Eye Threshold was 24-2. Strategy was CAITLYN. Reliability was good. Findings include normal observations. Elham Valdivia MD OPHTHALMOLOGY SE [employer] ORDERABLES documented in this encounter Visit Diagnoses Diagnosis Unspecified visual disturbance Retinal lesion Background retinopathy, unspecified documented in this encounter Care Teams Nurse Researcher Relationship Specialty Start Date End Date Mai Lilly MD [address] [place] [address] PCP - General Family Medicine 12/03/15 documented as of this encounter
--- OUTSIDE RECORDS SUMMARY | 2024-06-22 06:14 | XMS_ITS ---
Author Organization Unknown Address [address] [place], [place] [id number] Phone Care Team Providers Care Quality Control Representative Name Role Phone VERONICA Bryant Attending Unavailable ANNETTA Feliciano Primary Unavailable Social History Type Status Start Date End Date Code Code Syst em Smoking History Former smoker 1970 12/19/19894964 [id number] SNOMED CT Sex Female Hospital Discharge Instructions [...] Co de Code System SULFA (sulfonamide) Active 64232474 SNO MED-CT PREDNISONE Active 8640 RxNorm Plan of Treatment MM SCREEN BILAT 12/13/2023 MM SCREEN BILAT 04/13/2021 Encounters Encounter Diagnosis Start Date Code Code Sys tem 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
--- OUTSIDE RECORDS SUMMARY | 2024-06-22 06:14 | XMS_ITS | Encounter Summary ---
Author Organization [facility] Address [facility] [place] [address] Care Team Providers Care Dedicated Regional Driver Name Role Phone Mai Lilly MD Primary Care Provider [phone] Reason for Visit * Reason Onset Date Comments Other 11/25/2016 Encounter Details Date Type Department Care Team (Late st Contact Info) Description 11/25/2016 Telephone Care Management [facility] [place] [id number] Tea Hayden [facility] [place] [address] Other Social History Tobacco Use Types Packs/Day Years Used Date Smoking Tobacco: Former Smokeless Tobacco: Never Sex and Gender Information Value Date Recorded Sex Assigned at Not on file Gender Identity Not on file Sexual Orientation Not on file documented as of this encounter Progress Notes * Tea Hayden AIRCRAFT RIVETER - 11/25/2016 2:17 PM EDT Pt phoned [facility] to ask about wc issues related to a recent denial for plantar injections w/ an OSH provider. [facility] had previously consulted w/ pt re: wc issues and collaborated w/ her wc NCM: Valery Lemus accordingly # [phone]. Pt' wc insurance is: [facility] clia # [id number] Workers' Compensation Contact Number elevator adjuster; Kierra Reagan # [phone] reports recent knowledge of her treating [facility] tx that has been billed to [facility]. Pt reports having made multiple contacts w/ [facility] within the past few months to inquire about the status of the authorization for the foot tx services, and was told by [facility] elevator adjuster that there was no record of this tx being denied. has not received any formal documentation from [facility] re: this denial, but reports the information was relayed to her verbally and by the treating provider. [facility] explained that pt needed to secure the written denial for the tx that would then enable her to appeal the denial w/ the [place] dpt of Labor. Pt was previously sent the [place] dpt of Labor brochure know your rights by [facility] which does outline the appeal process, which pt referenced. Pt relayed plan to pursue the appeal, and [facility] instructed her to obtain the written denial correspondence from [facility] and to contact the [place] dpt [...] work injury. Pt was most appreciative of [facility]'s contact, and invited to f/u w/ me PRN. P: [facility] will be available for f/u intervention PRN. 11/25/16 1400 Workers' Compensation Type of Visit Follow-up Is your claim open and active? Yes Work Status Light Duty Do you have a Workers' Comp Contact? Yes Workers' Compensation Contact Name RUKHSANA todd # [id number] Workers' Compensation Contact Number [facility] Valery Lemus [phone] Are there bills not covered by Workers' Compensation? Yes (reason for her call 11-25 to discuss recent denial) Is there an director of rooms for Workers' Compensation No Previous WC claims through the DOL? No documented in this encounter Plan of Treatment Not on file documented as of this encounter Visit Diagnoses Not on filedocumented in this encounter Care Teams Dedicated Regional Driver Relationship Specialty Start Date End Date Mai Lilly MD [address] [place] [address] PCP - General Family Medicine 12/03/15 documented as of this encounter
--- OUTSIDE RECORDS SUMMARY | 2024-06-22 06:14 | XMS_ITS | Encounter Summary ---
[place] [address] Care Team Providers Care Youth Pastor Name Role Phone Mai Lilly MD Primary Care Provider Reason for Visit * Consultation (Routine) - Closed Specialty Diagnoses / Procedures Referred By Chantel allen Referred To Contact Endocrinology Diagnoses Pituitary disorder pituitary disorder Procedures consult and treat Nacho Rubalcava MD [address] [place] [address] [facility] Endocrinology [address] [place] [address] Referral ID Status Reason Start Date Expiration Date Visits Re quested Visits Authorized [id number] Closed 12/28/2016 12/28/2017 1 1 Encounter Details Date Type Department Care Team (Late st Contact Info) Description 02/09/2017 10:30 AM EDT Office [place] [address] Martina Salazar MD MacLeod, Sara R, DO Pituitary abnormality Social History Tobacco Use Types [...] in this encounter Progress Notes * Alondra Avina DO - 02/09/2017 10:30 AM EDT ENDOCRINOLOGY CONSULT NOTE [facility] Name: Isaiah Man Date: 02/09/17 Reason for [...] 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 MARTINA SALAZAR MD Hog Stomach Preparerautomatic data processing planner Section of Endocrinology [facility] documented in this encounter Plan of Treatment [...] (02/09/2017 1:45 PM EDT) Cortisol 22.0 mcg/dL [facility] Comment: Reference ranges: ??AM (6-10am): ??4.8-19.5 mcg/dL ??PM (4-8pm) : ??2.5-11.9 mcg/dL Blood specimen (specimen) 02/09/2017 1:45 PM EDT 02/09/2017 1:57 PM EDT Narrative Resulting Agency Comment Spec In Lab Martina Salazar MD CHEMISTRY ORDERABLES [facility] [place] [address] * Insulin Like GF-1 (02/09/2017 12:39 PM EDT) Igf-1 Z-Score (MAY) 81 42 - 169 ng/mL [facility] Comment: Ziyad Scale Reference Intervals: [...] SEND OUT ORDERAB LES Performing Organization Address [facility]/ZIP Co de Phone Number [facility] [place] [address] * Cortisol (02/09/2017 12:39 PM EDT) Cortisol 5.3 mcg/dL [facility] Comment: Reference ranges: ??AM (6-10am): ??4.8-19.5 mcg/dL ??PM (4-8pm) : ??2.5-11.9 mcg/dL Blood specimen (specimen) 02/09/2017 12:39 PM EDT 02/09/2017 12:45 PM EDT Narrative Resulting Agency Comment Spec In Lab Martina Salazar MD CHEMISTRY ORDERABLES Performing Organization Address City/[facility]/ZIP Co de Phone Number [facility] [place] [address] * Vitamin B12 (02/09/2017 12:39 PM EDT) Vitamin B12 935 207 - 974 pg/mL [facility] Blood specimen (specimen) 02/09/2017 12:39 PM EDT 02/09/2017 12:45 PM EDT Narrative Resulting Agency Comment Spec In Lab Martina Salazar MD CHEMISTRY ORDERABLES Performing Organization Address City/[facility]/ZIP Co de Phone Number [facility] [place] [address] * Prolactin (02/09/2017 12:39 PM EDT) Prolactin 8.3 4.8 - 23.3 ng/mL [facility] Blood specimen (specimen) 02/09/2017 12:39 PM EDT 02/09/2017 12:45 PM EDT Narrative Resulting Agency Comment Spec In Lab Martina Salazar MD CHEMISTRY ORDERABLES Performing Organization Address [facility] Co de Phone Number [facility] [place] [address] * Luteinizing Hormone (02/09/2017 12:39 PM EDT) Luteinizing Hormone 45.0 mlU/ML [facility] Comment: Reference ranges: ?? Females ?? Follicular: ? 2.4-12.6 mIU/mL ?? Ovulation: ?14.0-95.6 mIU/mL ?? Luteal: ? 1.0-11.4 mIU/mL ?? Postmenopausal: ? 7.7-58.5 mIU/mL Blood specimen (specimen) 02/09/2017 12:39 PM EDT 02/09/2017 12:45 PM EDT Narrative Resulting Agency Comment Spec In Lab Martina Salazar MD CHEMISTRY ORDERABLES Performing Organization Address [facility] Co de Phone Number [facility] [place] [address] * Follicle Stimulating Hormone (02/09/2017 12:39 PM EDT) Follicle Stimulating Hormone 97.9 mlU/ML [facility] Comment: Reference Ranges: Females: Follicular: ? 3.5-12.5 mIU/mL Ovulation: ?4.7-21.5 mIU/mL Luteal: ? 1.7-7.7 mIU/mL Postmenopausal: 25.8-134.8 mIU/mL Blood specimen (specimen) 02/09/2017 12:39 PM EDT 02/09/2017 12:45 PM EDT Narrative Resulting Agency Comment Spec In Lab Martina Salazar MD CHEMISTRY ORDERABLES Performing Organization Address City/[facility]/ZIP Co de Phone Number [facility] [place] [address] * ACTH (02/09/2017 12:39 PM EDT) ACTH 15 6 - 50 pg/mL [facility] Comment: Reference range applies only to specimens collected between 7am-10am. Test Performed by [facility], [address] [place] [id number] Nikita Neff M.D., Ph.D., Director of Laboratories , [place] [id number] Blood specimen (specimen) 02/09/2017 12:39 PM EDT 02/09/2017 1:25 PM EDT Narrative Resulting Agency Comment Spec In Lab Martina Salazar MD LAB SEND OUT ORDERAB LES Performing Organization Address City/[facility]/ZIP Co de Phone Number [facility] [place] [address] * Iron and TIBC (02/09/2017 12:39 PM EDT) Iron 87 30 - 150 mcg/dL [facility] TIBC 291 250 - 450 mcg/dL [facility] Iron Saturation 30 20 - 50 % [facility] Blood specimen (specimen) 02/09/2017 12:39 PM EDT 02/09/2017 12:45 PM EDT Narrative Resulting Agency Comment Spec In Lab Martina Salazar MD CHEMISTRY ORDERABLES [facility] [place] [address] * TSH (02/09/2017 12:39 PM EDT) Thyroid Stimulating Hormone 1.10 0.27 - 4.20 mlU/ML [facility] Blood specimen (specimen) 02/09/2017 12:39 PM EDT 02/09/2017 12:45 PM EDT Narrative Resulting Agency Comment Spec In Lab Martina Salazar MD CHEMISTRY ORDERABLES Performing Organization Address City/[facility]/ZIP Co de Phone Number [facility] [place] [address] * T4, free (02/09/2017 12:39 PM EDT) Free T4 0.98 0.93 - 1.70 ng/dL [facility] Blood specimen (specimen) 02/09/2017 12:39 PM EDT 02/09/2017 12:45 PM EDT Narrative Resulting Agency Comment Spec In Lab Martina Salazar MD CHEMISTRY ORDERABLES Performing Organization Address [facility] Co de Phone Number [facility] [place] [address] documented in this encounter Visit Diagnoses Diagnosis [...] Arm documented in this encounter Care Teams Youth Pastor Relationship Specialty Start Date End Date Mai Lilly MD [address] [place] [address] PCP - General Family Medicine 12/03/15 documented as of this encounter
--- OUTSIDE RECORDS SUMMARY | 2024-06-22 06:14 | XMS_ITS | Encounter Summary ---
Author Organization [facility] Address [facility] [place] [address] Care Team Providers Care Small Electric Engine Technician Name Role Phone Mai Lilly MD Primary Care Provider [phone] Encounter Details Date Type Department Care Team (Latest Contact Info) Description 10/19/2016 2:00 PM EDT Office [place] [phone] Cammie Gallo, MILL STENCILER Attention and concentration deficit Social History Tobacco [...] working two 2 hour shifts at [employer] near her home [place], [place]. She finds the work simple but [...] her baseline and more tolerable level. ?? Isaiah will be meeting with a Occupational Medicine [...] that she went to a chiropractor in [place] who is certified by the Upper Cervical [...] of difficulty on targeted tasks from the [employer] computer software program. Most tasks require 100% accuracy and timed tasks have time requirements that vary from task to task. LTG is successful re-entry into the community with ability to return to some type of viable employment. ?? Per Isaiah, setting the computer screen to Interlocking Pavement Installer with warmer tones is helpful in reducing [...] (visual) under the Memory panel (which per Isaiah is challenging in that she needs to [...] services to monitor Isaiah's work on the [employer] computer software program as well as to assist her with cognitive endurance as warranted. She is slowly increasing her computer screen time and experiencing overall improvement in attention/concentration and sustained focus as well as cognitive endurance. ?? Isaiah will be scheduling two f/u one hour visits with MILL STENCILER Sheila Elam in order to continue with her computer work and have a skilled clinician adjust her roster for her as needed. If approves additional visits and MILL STENCILER Sheila thinks that Isaiah would benefit from continued skilled ST services, the number of visits could be increased. Cammie Gallo M.S., [facility]-MILL STENCILER Pager#[phone] documented in this encounter Plan of Treatment Not on file documented as of this encounter Visit Diagnoses Diagnosis Attention and concentration deficit Attention or concentration deficit documented in this encounter Care Teams Small Electric Engine Technician Relationship Specialty Start Date End Date Mai Lilly MD [address] [place] [address] PCP - General Family Medicine 12/03/15 documented as of this encounter
--- OUTSIDE RECORDS SUMMARY | 2024-06-22 06:14 | XMS_ITS | Clinical Summary ---
Author Organization [facility] [place] [address] Care Team Providers Care Civil Technician Name Role Phone Mai Lilly MD Primary Care Provider [phone] Allergies Active Allergy Reactions Criticality Noted Date [...] injury 10/11/2015 TBI (traumatic brain injury) 10/11/2015 Family History Medical History Relation Comments Glaucoma [...] 12/19 Breast Cancer Share Decision Needed 1994 Pneumoccocal Vaccine: 50+ (1 of 1 - PCV) 2004 Zoster vaccine (1 of 2) 2004 Advance Directive 2009 Bone Density Scan 12/20/2019 Covid-19 Vaccine (1 - 2023- season) 2024 Influenza (Flu) vaccine (1 o f 1 - Influenza standard series) 01/29/2024 Breast Cancer screening 12/12/2025 12/13/2023 Procedures Procedure Name Priority Date/Time Associated Diagnosis Comments MAMMO SCREENING CAD AND BIMAL BILATERAL Routine 12/13/2023 3:00 PM EDT from Last 3 Months or Most Recently Relevant to Health Maintenance Results * Mammo Screening Cad and Bimal Bilateral (12/13/2023 3:00 PM EDT) PT CLASS O RAD ADMITDTTM [id number] RAD PT RAD INFO [id number]^STEVIE Basilio^PASCALE^G RAD EXAM DESC MADDSCTO^MM SCREENING BILAT MAMMO W BIMAL W CAD^RIS RAD WORKSTATION ID [id number] RAD Anatomical Region Laterality Modality Breast Bilateral [...] who have questions please contact the health transitions rn care coordinator that requested your imaging first. ? Narrative 12/14/2023 8:34 PM EDT EXAMINATION: MM [...] patients who have questions please contactthe health transitions rn care coordinator that requested your imaging first. Electronically signed by: Dennise Gresham MD, [facility]([phone]), at 12/14/2023 8:34 PM Pascale Caputo MD IMG MAMMO ORDERABLE S from Last 3 Months or Most Recently Relevant to Health Maintenance Care Teams Civil Technician Relationship Specialty Start Date End Date Mai Lilly MD [address] [place] [address] PCP - General Family Medicine 12/03/15
--- OUTSIDE RECORDS SUMMARY | 2024-06-22 06:14 | XMS_ITS | Encounter Summary ---
Author Organization [facility] [place] [address] Care Team Providers Care Medical Staff Physician Name Role Phone Mai Lilly MD Primary Care Provider [phone] Encounter Details Date Type Department Care Team (Latest Contact Info) Description 04/13/2016 1:30 PM EST Office Visit [place] [address] Leah Estrella, OT Attention and concentration deficit; [...] symptoms and referred to occupational therapy and FISH CULTURIST for evaluation and treatment. Isaiah Man presents [...] Alternating attention task TBI workbook pt 106 [place] stripy words, cross out food words followed [...] making progress and believes that OT and FISH CULTURIST are helpful for her recovery. Isaiah reports that she is pleased with her progress. Her PSFS is up to 5.25/10 as compared to [address] [facility]. She displays decreased concussion symptoms [...] employment skills (math tasks are not challenging) Long-Term Goals (to be met by discharge): Date [...] 4 visits to progress toward short and fdc goals. for Cognitive retraining attention, sequencing, problem [...] site documented in this encounter Care Teams Medical Staff Physician Relationship Specialty Start Date End Date Mai Lilly MD [address] [place] [address] PCP - General Family Medicine 12/03/15 documented as of this encounter
--- OUTSIDE RECORDS SUMMARY | 2024-06-22 06:14 | XMS_ITS | Encounter Summary ---
Author Organization [facility] [place] [address] Care Team Providers Care Intelligence Group Supervisor Name Role Phone Mai Lilly MD Primary Care Provider [phone] Encounter Details Date Type Department Care Team (Late st Contact Info) Description 12/13/2023 Interpretation Only [facility] in [facility] [address] [place] [phone] Pascale Caputo MD [address] [place] [address] Social History Tobacco Use Types Packs/Day Years [...] PM EDT) PT CLASS O RAD ADMITDTTM [id number] RAD PT RAD MD INFO [id number]^STEVIE C^PASCALE^G RAD EXAM DESC MADDSCTO^MM SCREENING BILAT MAMMO W BIMAL W CAD^RIS RAD WORKSTATION ID [id number] RAD Anatomical Region Laterality Modality Breast Bilateral [...] who have questions please contact the health transitional care manager that requested your imaging first. ? Narrative [...] patients who have questions please contactthe health transitional care manager that requested your imaging first. Pascale Caputo MD IMG MAMMO ORDERABLE S documented in this encounter Visit Diagnoses Not on filedocumented in this encounter Care Teams Intelligence Group Supervisor Relationship Specialty Start Date End Date Mai Lilly MD [address] [place] [address] PCP - General Family Medicine 12/03/15 documented as of this encounter
--- OUTSIDE RECORDS SUMMARY | 2024-06-22 06:14 | XMS_ITS | Encounter Summary ---
Author Organization [facility] [place] [address] Care Team Providers Care Mud Engineer Name Role Phone Mai Lilly MD Primary Care Provider [phone] Encounter Details Date Type Department Care Team (Latest Contact Info) Description 10/27/2016 2:30 PM EDT Office [place] [address] Leah Estrella, OT Attention and concentration deficit; [...] symptoms and referred to occupational therapy and FIELD FOREMAN for evaluation and treatment. Isaiah Man presents [...] rehab (who is hired by the [facility]). The possible plan is a month of [...] making progress and believes that OT and FIELD FOREMAN are helpful for her recovery. Isaiah plans [...] setting and + employment skills Initiation problsm Armored Service Technician Goals (to be met by discharge): Date [...] 3 visits to progress toward short and snf goals. [...] site documented in this encounter Care Teams Mud Engineer Relationship Specialty Start Date End Date Mai Lilly MD [address] [address] PCP - General Family Medicine 12/03/15 documented as of this encounter
--- OUTSIDE RECORDS SUMMARY | 2024-06-22 06:14 | XMS_ITS ---
Author Organization Unknown Address [address] [place] [phone] Phone Care Team Providers Care Rough Planer Tender Name Role Phone ANNETTA Feliciano Attending Unavailable Results MM SCREENING BILAT MAMMO W T VENUS W CAD* - Completed: 12/13/2023 15:00 LOINC: [facility] [place], [place] [address] RADIOLOGY PACS FRAMEMAN REPORT Patient Name: ISAIAH JONES MRN: Sex: : Age: [id number] F [id number] Account: Accession: Admit: StayType: [id number] 12/14/2023 O Ordered: Order ID: Submitted: Ordering Provider: 12/13/2023 14:30 [id number] KT PASCALE LITTLEJOHN Completed: Technologist: Resulted: 12/13/2023 [...] who have questions please contact the health skin care specialist that requested your imaging first. Electronically signed by: Dennise Gresham MD [facility] ([phone]), at 12/14/2023 8:34 PM Social History Type Status Start Date End Date Code Code Syst em Smoking History Former smoker 1970 12/19/19897603 8384789 SNOMED CT Sex Female Hospital Discharge Instructions [...] Co de Code System SULFA (sulfonamide) Active 55695092 [facility] MED-CT PREDNISONE Active 8640 RxNorm Plan of Treatment MM SCREEN BILAT 12/13/2023 MM SCREEN BILAT 04/13/2021 Encounters Encounter Diagnosis Start Date Code Code Sys tem Screening mammography 12/13/2023 [id number] SNOMED -CT Personal Care Team Section Performer Name Performer Role Active Date Inactive Da te
--- OUTSIDE RECORDS SUMMARY | 2024-06-22 06:14 | XMS_ITS | Encounter Summary ---
Author Organization [facility] Address [facility] [address] Care Team Providers Care Electrician Helper Automotive Name Role Phone Mai Lilly MD Primary Care Provider [phone] Encounter Details Date Type Department Care Team (Latest Contact Info) Description 03/03/2016 1:00 PM EDT Office Visit Speech Therapy at [facility] [place] [address] Cammie Gallo, MOBILE HEALTH VEHICLE OPERATOR Attention and concentration deficit Social History [...] of difficulty on targeted tasks from the neuropsychSpinal Restoration computer software program. Most tasks require 100% accuracy and timed tasks have time requirements that vary from task to task. LTG is successful re-entry into the community with ability to return to some type of viable employment. ?? Isaiah reviewed her trip to [place] and [facility] and revealed that although the trip generally went quite well, she was totally exhausted when she returned home, needing extensive down time. 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 Per Isaiah, although completely supported by family and friends during her trip, planning it and keeping track of her daily schedule, including adjusting priorities, took all of her brain power to pull off. ?? Concerning setting priorities, Isaiah expressed the fact that she would like to harvest apples andmake chutney this fall, but if she is to be successful with that task, she will not be able to spend as much time on the [x+1] computer program as the tasks are quite [...] was successful overall concerning her trip to [place] and surrounding areas but was quite fatigued [...] agreed with this plan. Cammie Gallo M.S., CCC-MOBILE HEALTH VEHICLE OPERATOR Pager#[phone] documented in this encounter Plan of Treatment Not on file documented as of this encounter Visit Diagnoses Diagnosis Attention and concentration deficit Attention or concentration deficit documented in this encounter Care Teams Electrician Helper Automotive Relationship Specialty Start Date End Date Mai Lilly MD [address] [place] [address] PCP - General Family Medicine 12/03/15 documented as of this encounter
--- OUTSIDE RECORDS SUMMARY | 2024-06-22 06:14 | XMS_ITS ---
Author Organization Unknown Address [address] [place] [address] [phone] Phone Care Team Providers Care Grinder Dresser Name Role Phone LUIS MIGUEL Leong Attending Unavailable ANNETTA Feliciano Primary Unavailable Results XR WRIST 3V W NAVICULAR LT* - Completed: 03/13/2024 15:33 LOINC: [facility] [place], [place] [address] RADIOLOGY CORN PICKER REPORT Patient Name: ISAIAH JONES MRN: Sex: : Age: [id number] F [id number] Account: Accession: Admit: StayType: [id number] 03/13/2024 O Ordered: Order ID: Submitted: Ordering Provider: 03/13/2024 15:15 [id number] KT ANIL BOLANOS Completed: Technologist: Resulted: 03/13/2024 15:08 03/13/2024 17:02 EXAMINATION: XR WRIST 3V W NAVICULAR LT CLINICAL HISTORY: Reason for Extrem: LT WRIST INJURY Add'l Info: (as entered by ordering provider in the order requisition) TECHNIQUE: PA, oblique, lateral, and scaphoid views of the right wrist. COMPARISON: None FINDINGS: Masslike soft tissue density along the dorsal aspect of the distal forearm. No underlying osseous destruction or osseous erosion. No underlying fracture or malalignment. Mild 1st carpal metacarpal and triscaphe joint space narrowing. IMPRESSION: 1. Masslike soft tissue density along the dorsal aspect of the distal forearm could represent a hematoma in the context of recent trauma. However, underlying soft tissue mass cannot be excluded on the basis of radiograph alone. If this finding does not demonstrate expected resolution [...] who have questions please contact the health care transition coordinator that requested your imaging first. Social History Type Status Start Date End Date Code Code Syst em Smoking History Former smoker 1969 12/19/19897215 1320572 SNOMED CT Sex Female Hospital Discharge Instructions [...] Co de Code System SULFA (sulfonamide) Active 64746004 SNO MED-CT PREDNISONE Active 8640 RxNorm Plan of Treatment MM SCREEN BILAT 12/13/2023 MM SCREEN BILAT 04/13/2021 Encounters Encounter Diagnosis Start Date Code Code Sys tem 03/13/2024 [id number] SNOMED-CT Personal Care Team Section Performer Name Performer Role Active Date Inactive Da te
--- OUTSIDE RECORDS SUMMARY | 2024-06-22 06:15 | XMS_ITS | Encounter Summary ---
Author Organization [facility] Address [address] [place] [address] Care Team Providers Care Blacking Machine Operator Name Role Phone Unavailable Primary Care Provider Unavailabl e Encounter Details Date Type Department Care Team (Late st Contact Info) Description 07/14/2004 Results Only [facility] [place] [facility] [address] [place] [address] Edgard Fraser MD [address] [place] [address] [phone] Social History Tobacco Use Types Packs/Day Years Used Date Smoking Tobacco: Never Assessed Comments Unknown Sex and Gender Information Value Date Recorded Sex Assigned at Not on file Legal Sex Female 18:19 EST Gender Identity Not on file Sexual Orientation [...] ? VICKY JONES ? Accession #: ? [id number] : ? 1955 (Age: 48) ??F ?Collect [...] End of Report [facility] 07/14/2004 07/20/2004 us Edgard Fraser MD PATHOLOGY ORDERABLES Fin al Result [facility] [address] [place] [address] documented in this encounter Visit Diagnoses Not on filedocumented in this encounter
--- OUTSIDE RECORDS SUMMARY | 2024-06-22 06:15 | XMS_ITS | Encounter Summary ---
Author Organization [facility] Address [address] [place] [address] Care Team Providers Care Pelt Inspector Name Role Phone Unavailable Primary Care Provider Unavailabl e Encounter Details Date Type Department Care Team (Latest Contact Info) Description 03/10/1999 19:40 EDT Hospital Encounter [facility] - Other [address] [place] [address] Mike Johnson MD [address] [place] [id number] Unknown, Provider, Discharge Disposition: Auto Discharge Social History Tobacco [...]
--- OUTSIDE RECORDS SUMMARY | 2024-06-22 06:15 | XMS_ITS | Encounter Summary ---
Author Organization [facility] Address [address] [place] [address] Care Team Providers Care Typing Element Machine Operator Name Role Phone Mai Lilly MD Primary Care Provider [phone] Encounter Details Date Type Department Care Team (Late st Contact Info) Description 06/26/2019 Results Only [facility] - Main [address] [id number] Jovanny, Steff Costello [place] Social History Tobacco Use Types Packs/Day [...] * T4 FREE (06/26/2019 15:00 EST) FREE [address] 0.84 0.78 - 2.19 ng/dl 06/26/2019 20:03 EST [facility] 06/26/2019 15:0 0 EST 06/26/2019 18:31 EST us Steff Petty ND CHEMISTRY & BLOOD GAS ORDERABLE S Final Result [facility] documented in this encounter Visit Diagnoses Not on filedocumented in this encounter Care Teams Typing Element Machine Operator Relationship Specialty Start Date End Date Mai Lilly MD [address] [place] [phone] PCP - General 02/20/15 documented as of this encounter
--- OUTSIDE RECORDS SUMMARY | 2024-06-22 06:15 | XMS_ITS | Encounter Summary ---
Author Organization [facility] Address [address] [place] [address] Care Team Providers Care Tool Tender Name Role Phone Mike Johnson MD Primary Care Provider + Encounter Details Date Type Department Care Team (Latest Contact Info) Description 02/14/2014 13:56 EDT - 02/14/2014 23:59 EDT Hospital Encounter [facility] [address] [place] [address] Unknown, Provider, MD Discharge Disposition: Home or Self Care Social [...] Code Departure Means Destination Home or Self Half-Way documented in this encounter Plan of Treatment Not on file documented as of this encounter Visit Diagnoses Not on filedocumented in this encounter Care Teams Tool Tender Relationship Specialty Start Date End Date Mike Johnson MD [address] [place] [id number] PCP - General 11/18/10 02/19/14 documented as of this encounter
--- OUTSIDE RECORDS SUMMARY | 2024-06-22 06:15 | XMS_ITS | Encounter Summary ---
[place] [address] Care Team Providers Care Accounting Administrator Name Role Phone DinaChamp palacios Primary Care Provider [phone] Reason for Referral * Occupational Therapy (Routine) - Closed Specialty Diagnoses / Procedures Referred By Chantel allen Referred To Contact Occupational Therapy Diagnoses TBI (traumatic brain injury), without loss of consciousness, subsequent encounter Work related injury Darlin Richardson APRN [facility] [place] [address] [facility] [place] [address] Referral ID Status Reason Start Date Expiration Date V isits Requested Visits Authorized [id number] Closed Evaluate and Treat 10/11/2015 10/10/2016 12 12 Encounter Details Date Type Department Care Team (Late st Contact Info) Description 10/11/2015 Orders [place] [phone] Darlin Richardson BAGGAGE CLERK [facility] [address] TBI (traumatic brain injury), without [...] site documented in this encounter Care Teams Accounting Administrator Relationship Specialty Start Date End Date Champ Arroyo DO [facility] [address] [place] [address] PCP - General 04/21/10 10/15/15 documented as of this encounter
--- OUTSIDE RECORDS SUMMARY | 2024-06-22 06:15 | XMS_ITS | Encounter Summary ---
Author Organization [facility] Address [facility] [place] [address] Care Team Providers Care Woven Wood Shade Assembler Name Role Phone Mai Lilly MD Primary Care Provider [phone] Encounter Details Date Type Department Care Team (Latest Contact Info) Description 01/29/2016 1:00 PM EDT Office Visit [place] [address] Leah Estrella, OT Attention and concentration deficit; [...] TFA 55 minutes Therapeutic / Functional Activities (99491) 55 min HISTORY: Isaiah Man is a [...] symptoms and referred to occupational therapy and LOBBYIST for evaluation and treatment. Isaiah Man presents [...] lights- minimal distraction Deck of cards, onlinecatalogue (aiHit'Self-A-r-T) Min A to set up Set timer [...] material) Tried a 2 min video on brain[employer]N [employer].org on TBI recovery: http://www.brainline.org/content/multimedia.php?uc=0348 Sitting in room with dimmed lights Computer, [...] and new knowledge learned from watching short [employer] educational/support videos ASSESSMENT: Isaiah Man is making progress and believes that OT and LOBBYIST are helpful for her recovery. She reports [...] driving, and social participation. Next visit: MVPT Prison Goals (to be met by discharge): Date [...] encounter documented in this encounter Care Teams Woven Wood Shade Assembler Relationship Specialty Start Date End Date Mai Lilly MD [address] [place] [address] PCP - General Family Medicine 12/03/15 documented as of this encounter
--- OUTSIDE RECORDS SUMMARY | 2024-06-22 06:15 | XMS_ITS | Encounter Summary ---
Author Organization [facility] [place] [facility] Address [address] [place] [address] Care Team Providers Care Cops Name Role Phone Unavailable Primary Care Provider Unavailabl e Encounter Details Date Type Department Care Team (Latest Contact Info) Description 12/12/2001 10:36 EDT - 12/12/2001 11:59 EDT Hospital Encounter [facility] - Other [address] [place] [address] Edgard Fraser MD [address] [place] [phone] Unknown, Provider, Discharge Disposition: Auto Discharge Social [...] ? VICKY JONES ? Accession #: ? [id number] : ? 1955 (Age: 45) ??F ?Collect [...] of Report [facility] 12/12/2001 12/14/2001 us Edgard Fraser MD PATHOLOGY ORDERABLES Fin al Result Performing Organization Address City/State/[facility] Co de Phone Number [facility] [address] [place] [place] [phone] documented in this encounter Visit Diagnoses Not on filedocumented in this encounter
--- OUTSIDE RECORDS SUMMARY | 2024-06-22 06:15 | XMS_ITS | Encounter Summary ---
Author Organization [facility] Address [address] [place] [address] Care Team Providers Care Associate Genetics Professor Name Role Phone Mai Wong MD Primary Care Provider [phone] Encounter Details Date Type Department Care Team (Late st Contact Info) Description 11/19/2016 Results Only [facility] [phone] Mai Wong MD [address] [place] [phone] Social History Tobacco Use Types Packs/Day [...] ? VICKY JONES ? Accession #: ? [id number] ? : ? 1955 (Age: 60) ??F ?Collect Date: ? 11/19/2016 ? Location: ? [facility] ? Receive Date: ? 11/23/2016 ? Provider: MAI WONG MD Copy to: ? Final Report SPECIMEN ADEQUACY ? Satisfactory for Evaluation - transformation zone component present GENERAL CATEGORIZATION ? Negative for Intraepithelial Lesion or Malignancy ?? Hormonal/Contracep tive status: None Other: Taxi Driver Supervisor Clinical/Treatment Hx - None Specimen/Source: ??Pap Test, [...] types 16,18,31,33,35, 39,45,51,52,56,58, 59,66, and 68 by manager behavior mediated amplification. Comments Document reviewed and electronically signed by: ? System Interface ? Report date: 12/03/2016 By the signature above, the attending physician certifies that he/she has personally conducted a gross and/or microscopic examination of the described specimens and rendered or confirmed the above diagnosis. End of Report [facility] 11/19/2016 11/23/2016 us Mai Wong MD PATHOLOGY ORDERABLES Final Res ult [facility] [address] [place] [address] documented in this encounter Visit Diagnoses Not on filedocumented in this encounter Care Teams Associate Genetics Professor Relationship Specialty Start Date End Date Mai Wong MD [address] [place] [phone] PCP - General 02/20/15 documented as of this encounter
--- OUTSIDE RECORDS SUMMARY | 2024-06-22 06:15 | XMS_ITS | Encounter Summary ---
Author Organization [facility] [address] Care Team Providers Care Aerial Planting And Cultivation Manager Name Role Phone Mai Lilly MD Primary Care Provider [phone] Encounter Details Date Type Department Care Team (Latest Contact Info) Description 01/29/2016 11:00 AM EDT Office [place] [address] Cammie Gallo, PHYSICAL THERAPY TECHNICIAN Attention and concentration deficit Social History Tobacco [...] 64 min for cognitive skills S: ?? Isaiah reported being very tired this am and having a LONGORIA. ?? Isaiah said that after processing the group visit [...] group session,agreeing to continue to work with Isaiah individually. O: STG is successful completion of all four levels of difficulty on targeted tasks from the [employer] computer software program. Most tasks require 100% accuracy and timed tasks have time requirements that vary from task to task. LTG is successful re-entry into the community with ability to return to some type of viable employment. ?? Reviewed computer tasks on Isaiah's roster. Isaiah successfully passed two of her Serial Addition trials before making an error, which put her back at the beginning again because no errors are allowed. Suggested a way to avoid going all the way back to the start of level 1 again if Isaiah feels that the frustration of repeating another two trials outweighs the benefit of repeated practice without making any errors. ?? Isaiah explained that while she passed level 1 [...] out after seven trials. I suggested that ifIsaiah is inaccurate after seven trials, she simply click on Quit and attempt the task again. There is a logical solution for each individual sequence and Isaiah must spend the time and intensive focus/concentration on each successive attempt in order to achieve success. ?? Isaiah had reached three consecutive passes at levels 1 and 2 of Follow My Instructions (Visual) and today passed level 3 so is at the highest level 4. At the highest level, one is provided with complex commands without having a visual stimulus until the written command goes away. Isaiah seemed to handle the memory constraint well as long as she spoke aloud as a mnemonic cue to maximize recall of the colored shape sequences. For example, given the instruction to Click on the purple [place] before you click on the red [place], but after you click on the purple triangle, she needed to figure outand repeat the sequence purple [place], purple triangle and then red [place] after the written command disappeared and the color shapes were on the screen. Isaiah appeared to be very focused as well as successful with this task. When she passes all four levels, she will automatically (when she clicks on Rerun) move to the next task under the Communication Skills panel, entitled Follow My Instructions(Auditory). Isaiah feels that this task will be quite [...] now. ?? Spent a little time discussing Isaiah's future career/job goals. 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 I suggested that she might also consider speaking to professionals and/or survivorsabout brain injuries, given her acquisition of helpful tools to deal with her pain and other chronic TBI sequelae. A: ?? Good session today. Isaiah made it clear that she prefers to [...] Review computer items completed. Check progress. ?? Isaiah agreed with this plan. Cammie Gallo M.S., [facility]-PHYSICAL THERAPY TECHNICIAN Pager#[phone] documented in this encounter Plan of Treatment Not on file documented as of this encounter Visit Diagnoses Diagnosis Attention and concentration deficit Attention or concentration deficit documented in this encounter Care Teams Aerial Planting And Cultivation Manager Relationship Specialty Start Date End Date Mai Lilly MD [address] [place] [address] PCP - General Family Medicine 12/03/15 documented as of this encounter
--- OUTSIDE RECORDS SUMMARY | 2024-06-22 06:15 | XMS_ITS | Encounter Summary ---
Author Organization [facility] Address [address] [place] [address] Care Team Providers Care Load Out Person Name Role Phone Unavailable Primary Care Provider Unavailabl e Encounter Details Date Type Department Care Team (Latest Contact Info) Description 03/29/2000 11:04 EST - 03/29/2000 11:59 EST Hospital Encounter [facility] - Other [address] [place] [address] Edgard Fraser MD [address] [place] [phone] Unknown, Provider, Discharge Disposition: Auto Discharge Social [...] ? VICKY JONES ? Accession #: ? [id number] : ? 1955 (Age: 44) ??F ?Collect [...] Date: ??04/08/2000 07:43 End of Report [facility] 03/29/2000 03/31/2000 us Edgard Fraser MD PATHOLOGY ORDERABLES Fin al Result [facility] [address] [place] [address] documented in this encounter Visit Diagnoses Not on filedocumented in this encounter
--- OUTSIDE RECORDS SUMMARY | 2024-06-22 06:15 | XMS_ITS | Encounter Summary ---
Author Organization [facility] Address [address] [place] [address] Care Team Providers Care Dip Guider Stoves Name Role Phone Mai Lilly MD Primary Care Provider [phone] Encounter Details Date Type Department Care Team (Late st Contact Info) Description 06/26/[address] [facility] - Main [address] [id number] Faalice, Steff Costello, CHAYA Social History Tobacco [...] * T3 FREE (06/26/2019 15:00 EST) T3,FREE [facility] 3.3 2.8 - 4.4 pg/mL 06/28/2019 16:21 EST [facility] Comment: Test Performed by: [facility] [address] [place] [id number] House Wrecker: Edison Lee M.D. Ph.D.; CLIA# [id number] 06/26/2019 15:0 0 EST 06/26/2019 18:31 EST us Steff W Faesy ND CHEMISTRY & BLOOD GAS ORDERABLE S Final Result Performing Organization Address City/[facility]/ZIP Co de Phone Number [facility] * TSH (06/26/2019 15:00 EST) [facility] THYROID [facility] 0.65 0.46 - 4.68 uIU/ml 06/26/2019 20:03 EST [facility] Comment: The results of this assay can be falsely lowered due to the consumption of Biotin. 06/26/2019 15:0 0 EST 06/26/2019 18:31 EST us Steff W Faesy ND CHEMISTRY & BLOOD GAS ORDERABLE S Final Result Performing Organization Address [facility] Co de Phone Number [facility] documented in this encounter Visit Diagnoses Not on filedocumented in this encounter Care Teams Dip Guider Stoves Relationship Specialty Start Date End Date Mai Lilly MD [address] [place] [phone] PCP - General 02/20/15 documented as of this encounter
--- OUTSIDE RECORDS SUMMARY | 2024-06-22 06:15 | XMS_ITS | Encounter Summary ---
Author Organization [facility] Address [facility] [place] [address] Care Team Providers Care Registered Appraiser Name Role Phone Mai Lilly MD Primary Care Provider [phone] Encounter Details Date Type Department Care Team (Latest Contact Info) Description 01/21/2016 1:00 PM EDT Office [place] [address] Leah Estrella, OT Attention and concentration deficit; [...] TFA 55 minutes Therapeutic / Functional Activities (93828) 55 min HISTORY: Isaiah Man is a [...] symptoms and referred to occupational therapy and PALLIATIVE CARE SPECIALIST for evaluation and treatment. Isaiah Man presents [...] of assistance Repetitions/ Time Response Functional scavenger sugn (stated below) with problem solving aspect of [...] strategies already She did report after seeing OT/PALLIATIVE CARE SPECIALIST she was unable to engage in anything [...] are running errands for a doctor at [facility]. He has provided you with a list of items that he would like for you to purchase. You are given $50 and are asked to not exceed this amount. In addition, he is very busy and has only allotted you a small amount of time to complete this task. Doctor List: Gift shop items: Dog themed car coaster (large or small) [employer] magazine Pharmacy: Udderly smooth body cream [place] Defense Sugar Free Cough Drops Cravins 20 oz. [place] & Spring Coffee Au Bon Pain: Black Sammy Steak & Cheese Sub Gift for his (chose from options below)- All found at gift shop ??? 2 Liya Whiteside eyeglass cases ??? Liya Whiteside lunch cooler/box ??? [place] Tree Jabier of the Garden ??? For Teas Sake: Let???s Suresh- Black Tea Suresh Spice ASSESSMENT: Isaiah Man presents with limited functional performance due to self reported deficits in word finding, stuttering, verbal fluency (for which she will see PALLIATIVE CARE SPECIALIST). She is also self reporting deficits in [...] functioning below her prior to injury level. Isaiah was very challenged by sustained attention and [...] driving, and social participation. Next visit: MVPT Brine Process Operator Goals (to be met by discharge): Date [...] 6-12 week(s) to progress toward short and tank terminal gauger goals. for Cognitive retraining attention, sequencing, problem [...] encounter documented in this encounter Care Teams Registered Appraiser Relationship Specialty Start Date End Date Mai Lilly MD [address] [place] [address] PCP - General Family Medicine 12/03/15 documented as of this encounter
--- OUTSIDE RECORDS SUMMARY | 2024-06-22 06:15 | XMS_ITS | Encounter Summary ---
Author Organization [facility] Address [address] [place] [address] Care Team Providers Care Worksite Wellness Practitioner Name Role Phone Unavailable Primary Care Provider Unavailabl e Encounter Details Date Type Department Care Team (Late st Contact Info) Description 12/07/2006 9:56 EDT Hospital Encounter [facility] [address] [place] [address] oJhn Guerra, DO [address] [place] [address] Social History Tobacco Use Types Packs/Day Years Used Date Smoking Tobacco: Never Assessed Interpersonal Safety Answer Date Record ed Physically Hurt Never 12/30/2019 Verbally Threaten Not on file 12/30/2019 Comments Unknown Sex and Gender Information Value [...] encounter Results * CYTOPATHOLOGY (11/28/2008 0:00 EDT) Pathologist [facility] Pathology Report: CYTOPATHOLOGY REPORT ? Reports generated via electronic interface contain original data; ? however they are lacking the format of the original report. ? Caution should be taken when reading/interpreti ng unformatted reports. ? Name: ? VICKY JONES ? Accession #: ? [id number] ? : ? 1955 (Age: 52) ??F [...] of Report ? [facility] 11/28/2008 12/02/2008 us Raul Liang MD PATHOLOGY ORDERABLES Final Resu lt [facility] [address] [place] [address] * 25 [place] VITAMIN D2 D3 (12/07/2006 10:37 EDT) 25-Hydroxy D2 <4.0 Unit: ng/mL [facility] 25-Hydroxy D3 32 Unit: ng/mL [facility] 25-Hydroxy D Total 32Unit: ng/mL(Note) -- EXPECTED VALUES -- ? (Ref Range) 25-HYDROXY D TOTAL (D2+D3) ? Optimum levels in the normal ? population are 25-80 ? Test Performed by: ? [facility] Pathology ? [address], [place] [address] ? Outside Installation Machinist: Yuniel Nina III, M.D. ? [facility] 12/07/2006 10:3 7 EDT 12/07/2006 10:39 EDT us John Guerra DO CHEMISTRY & BLOOD GAS ORDER ARTURO Final Result Performing Organization Address [facility] de Phone Number [facility] [address] [place] [address] * TSH (12/07/2006 10:37 EDT) TSH 1.44 0.35 - 5.00 uIU/mL [facility] 12/07/2006 10:3 7 EDT 12/07/2006 10:39 EDT us John Guerra DO CHEMISTRY & BLOOD GAS ORDER ARTURO Final Result Performing Organization Address [facility] Phone Number [facility] [address] [place] [address] * T4 (12/07/2006 10:37 EDT) T4, Total 6.4 4.5 - 10.9 ug/dL [facility] Comment:Sample retested, res ult confirmed 12/07/2006 10:3 7 EDT 12/07/2006 10:39 EDT John Guerra DO CHEMISTRY & BLOOD GAS ORDER ARTURO Final Result Performing Organization Address [facility] de Phone Number [facility] [address] [place] [address] * T3, TOTAL (12/07/2006 10:37 EDT) T3, Total 123 60 - 181 ng/dL [facility] 12/07/2006 10:3 7 EDT 12/07/2006 10:39 EDT John Guerra DO CHEMISTRY & BLOOD GAS ORDER ARTURO Final Result Performing Organization Address [facility] de Phone Number [facility] [address] [place] [address] * TOTAL & FREE TESTOSTERONE (12/07/2006 10:37 EDT) [facility] Sex Hormone Binding Globulin 77.8 18 - 114 nmol/L [facility] Comment:Reference range is f or non- females. Testosterone, Total 35 14 - 76 ng/dL [facility] Testosterone, Free 0.3 0.1 - 1.5 ng/dl [facility] Comment: Test not recommended in patients with plasma protein abnormalities. 12/07/2006 10:3 7 EDT 12/07/2006 10:39 EDT John Guerra DO CHEMISTRY & BLOOD GAS ORDER ARTURO Final Result Performing Organization Address [facility] de Phone Number [facility] [address] [place] [address] * T4 FREE (12/07/2006 10:37 EDT) Free T4 1.1 0.8 - 1.8 ng/dL [facility] 12/07/2006 10:3 7 EDT 12/07/2006 10:39 EDT us John Guerra DO CHEMISTRY & BLOOD GAS ORDER ARTURO Final Result Performing Organization Address [facility] de Phone Number [facility] [address] [place] [address] * T3 FREE (12/07/2006 10:37 EDT) T3, Free 3.0 2.3 - 4.2 pg/mL [facility] 12/07/2006 10:3 7 EDT 12/07/2006 10:39 EDT us John Guerra DO CHEMISTRY & BLOOD GAS ORDER ARTURO Final Result [facility] [address] [place] [address] documented in this encounter Visit Diagnoses Not on filedocumented in this encounter
--- OUTSIDE RECORDS SUMMARY | 2024-06-22 06:15 | XMS_ITS | Encounter Summary ---
Author Organization [facility] Address [address] [place] [address] Care Team Providers Care Grocery Worker Name Role Phone Unavailable Primary Care Provider Unavailabl e Encounter Details Date Type Department Care Team (Late st Contact Info) Description 08/10/2005 17:28 EST Hospital Encounter [facility] [address] [place] [address] John Guerra, DO [address] [facility], [place] [address] Social History Tobacco Use Types Packs/Day Years [...] Binding Globulin 162.0(H) 18 - 114 nmol/L [facility] Testosterone, Total 55 14 - 76 ng/dl [facility] Testosterone, Free 0.2 0.1 - 1.5 ng/dl [facility] Comment: Test not recommended in patients with plasma protein abnormalities. 08/10/2005 17:2 3 EST 08/10/2005 17:25 EST us John Guerra DO CHEMISTRY & BLOOD GAS ORDER ARTURO Final Result Performing Organization Address [facility] de Phone Number [facility] [address] [place] [address] * T4 FREE (08/10/2005 17:23 EST) Free T4 1.4 0.8 - 1.8 ng/dl [facility] 08/10/2005 17:2 3 EST 08/10/2005 17:25 EST us John Guerra DO CHEMISTRY & BLOOD GAS ORDER ARTURO Final Result Performing Organization Address [facility] de Phone Number [facility] [address] [place] [address] * (ABNORMAL) T3 FREE (08/10/2005 17:23 EST) T3, Free 6.3(H) 2.3 - 4.2 pg/mL [facility] 08/10/2005 17:2 3 EST 08/10/2005 17:25 EST us John Haritha Guerra DO CHEMISTRY & BLOOD GAS ORDER ARTURO Final Result Performing Organization Address [facility] de Phone Number [facility] [address] [place] [address] documented in this encounter Visit Diagnoses Not on filedocumented in this encounter
--- OUTSIDE RECORDS SUMMARY | 2024-06-22 06:15 | XMS_ITS | Encounter Summary ---
Author Organization [facility] Address [address] [place] [address] Care Team Providers Care Wind Turbine Design Engineer Name Role Phone Mike Johnson MD Primary Care Provider + Encounter Details Date Type Department Care Team (Late st Contact Info) Description 05/28/2013 Results Only [facility]- [facility] [phone] Bryanna Bryant, JOSEPH [address] [facility] [address] [place] [address] Social History Tobacco Use Types Packs/Day Years [...] Date: ? 06/06/2013 ? Provider: BRYANNA BRYANT APRN Copy to: ? Final Report SPECIMEN ADEQUACY ? Satisfactory for Evaluation - assessment of transformation zone component not applicable ( e.g. atrophy, vaginal sample, hysterectomy) GENERAL CATEGORIZATION ? Negative for Intraepithelial Lesion or Malignancy ?? Menstrual/Pregnanc y Status: ??Menopausal Other: Additional clinical information: NL 2010 Specimen/Source: ??Pap Test, Source Not Provided, [employer] Imaging System with manual evaluation Document reviewed [...] types 16,18,31,33,35, 39,45,51,52,56,58, 59,66, and 68 by wireless watcher mediated amplification. Test not validated for this [...] confirmed the above diagnosis. End of Report [facility] 05/28/2013 06/06/2013 us Bryanna Bryant MICROBIOLOGY INSTRUCTOR PATHOLOGY ORDERABL ES Final Result [facility] [address] [place] [address] documented in this encounter Visit Diagnoses Not on filedocumented in this encounter Care Teams Wind Turbine Design Engineer Relationship Specialty Start Date End Date Mike Johnson MD [address] [place] [address] PCP - General 11/18/10 02/19/14 documented as of this encounter
--- OUTSIDE RECORDS SUMMARY | 2024-06-22 06:15 | XMS_ITS | Encounter Summary ---
Author Organization [facility] [place] [address] Care Team Providers Care Applied Biology Professor Name Role Phone Nacho Rubalcava MD Primary Care Provider [phone] Reason for Visit * Consultation (Routine) - Closed Specialty Diagnoses / Procedures Referred By Chantel t Referred To Contact Neurology Diagnoses cognitive rehab for concussion Nacho Rubalcava MD [address] [place] [address] [facility] [address] [place] [phone] Referral ID Status Reason Start Date Expiration Date V isits Requested Visits Authorized [id number] Closed Connection Center 07/17/2015 07/16/2016 1 1 Encounter Details Date Type Department Care Team (Late st Contact Info) Description 10/16/2015 10:00 AM EDT Office [place] [phone] Melinda Dennis MD [facility] [place] [address] Post concussion syndrome Social History Tobacco Use [...] syndrome documented in this encounter Care Teams Applied Biology Professor Relationship Specialty Start Date End Date Nacho Rubalcava MD PCP - General Neurology 10/16/15 12/02/15 documented as of this encounter
--- OUTSIDE RECORDS SUMMARY | 2024-06-22 06:15 | XMS_ITS | Encounter Summary ---
Author Organization [facility] Address [address] [place] [address] Care Team Providers Care Capacitor Tester Name Role Phone Unavailable Primary Care Provider Unavailabl e Encounter Details Date Type Department Care Team (Late st Contact Info) Description 09/09/2003 Results Only [facility] [address] [place] [address] Unknown, Provider, Social History Tobacco Use Types [...] 09/09/2003 10:4 9 EDT 09/09/2003 22:11 EDT us Provider Unknown CHEMISTRY & BLOOD GAS ORDERA BLES Final Result Performing Organization Address [facility] Co de Phone Number [facility] [address] [place] [address] * CORTISOL (09/09/2003 10:49 EDT) Pathologist [facility] Cortisol 6 ug/dl [facility] Comment: 7-9a.m.=4.3-22.4 3-5p.m.=3.1-16.7 09/09/2003 10:4 9 EDT 09/09/2003 22:11 EDT Provider Unknown CHEMISTRY & BLOOD GAS ORDERA BLES Final Result Performing Organization Address [facility] Co de Phone Number [facility] [address] [place] [address] * VITAMIN B12 (09/09/2003 10:49 EDT) Pathologist [facility] Vitamin B-12 498 250 - 1100 pg/ml [facility] 09/09/2003 10:4 9 EDT 09/09/2003 22:11 EDT us Provider Unknown CHEMISTRY & BLOOD GAS ORDERA BLES Final Result Performing Organization Address [facility] Co de Phone Number [facility] [address] [place] [address] documented in this encounter Visit Diagnoses Not on filedocumented in this encounter
--- OUTSIDE RECORDS SUMMARY | 2024-06-22 06:15 | XMS_ITS | Clinical Summary ---
Author Organization [facility] Address [address] [place] [address] Care Team Providers Care Hay Sorter Name Role Phone Mai Lilly MD Primary Care Provider [phone] Social History Tobacco Use Types Packs/Day Years [...] Last Done Comments Hepatitis C Screen 1955 Fall Risk Screening 12/20/2019 COVID-19 Vaccine (2023- season) 2024 RSV Immunization ( o r 60+ Years) (1 - 1-dose 75+ series) 2029 Insurance MEDICAID [place] Care Teams Hay Sorter Relationship Specialty Start Date End Date Mai Lilly MD [address] [place] [phone] PCP - General 02/20/15
--- OUTSIDE RECORDS SUMMARY | 2024-06-22 06:15 | XMS_ITS | Encounter Summary ---
Author Organization [facility] Address [facility] [place] [address] Care Team Providers Care Cardiac Technician Name Role Phone Mai Lilly MD Primary Care Provider [phone] Encounter Details Date Type Department Care Team (Latest Contact Info) Description 02/13/2016 11:00 AM EDT [place] [address] Cammie Gallo, PEGGER Attention and concentration deficit Social History Tobacco [...] for cognitive skills S: ?? Isaiah reported having a mild LONGORIA today, the word mild to her meaning that she can ignore it. ?? Isaiah reported feeling well and feeling that the cognitive computer tasks are challenging her while also improving her brain function. She can feel the positive changes happening. Per Isaiah, the ST and OT visits scheduled every two weeks works well because, with increased capacity comes the need to adapt her home environment and schedule to accommodate her increased cognitive endurance. AlthoughHA's have increased to some extent, Isaiah also appreciates the fact that she is slowly increasing her computer time, etc. She currently tolerates about 10 minutes of computer time. ?? Isaiah mentioned that per her neurologist, Dr. Brito, [...] some type of viable employment. ?? Reviewed Isaiah's computer roster. The one task that Isaiah has been unable to succeed at has been the Simply Logical task at level two, in which one is given seven chances to figure out color sequences given four different colored blocks. Suggested that Isaiah select all of one color, such as [...] used, and in which order, for each sequence.Isaiah was selecting one color for only the initial sequence so had more difficulty deducing the color combinations given only seven tries to do so. She said she will continue to work at level 2 at home (having successfully completed level 1). ?? Currently, Isaiah is on level 2 of Serial Addition and level 4 of Follow My Instructions (written), having successfully completed one pass at this highest level. After Isaiah has achieved success withall four levels of this task, she will automatically (when she clicks on the rerun button) be movedto the next task under the Communication panel, entitled Follow My Instructions (vocal). ?? We discussed Isaiah's upcoming family reunion in [place] to celebrate her brother's 70th birthday), and Isaiah asked me for any suggestions to minimize [...] to gather for her brother's birthday dinner. Isaiah will be staying at an [employer] close to her brother's home so can always get away to rest or recuperate as needed. She herself thought about taking a walk when feeling the need to decompress or be alone. A: ?? Isaiah continues to be highly motivated to maximize her cognitive function. She is diligent with her HEP and hopes to eventually return to work in some capacity. I have no doubt that she will accomplish her goals. P: ?? Check with Isaiah to determine how her trip to [place] went, including her fatigue level, handlingof environmental stimulation and cognitive endurance. ?? Adjust computer program roster as warranted to best address Isaiah's individual needs. ?? Review computer items completed. Check progress. ?? Continue with one hour ST visits every two weeks, dovetailing with OT as much as possible. Currently, sIaiah has appts scheduled through April 13. ?? Isaiah agreed with this plan. Cammie Gallo M.S., CCC-PEGGER Pager#[phone] documented in this encounter Plan of Treatment Not on file documented as of this encounter Visit Diagnoses Diagnosis Attention and concentration deficit Attention or concentration deficit documented in this encounter Care Teams Cardiac Technician Relationship Specialty Start Date End Date Mai Lilly MD [address] [place] [address] PCP - General Family Medicine 12/03/15 documented as of this encounter
--- OUTSIDE RECORDS SUMMARY | 2024-06-22 06:15 | XMS_ITS | Encounter Summary ---
Author Organization [facility] Address [address] [place] [address] Care Team Providers Care Enrollment Services Dean Name Role Phone Mai Lilly MD Primary Care Provider [phone] Reason for Visit * Reason Onset Date Comments Other 04/01/2015 Encounter Details Date Type Department Care Team (Late st Contact Info) Description 04/01/[address] [facility] Memory Program - Medical Office Building [address] [place] [address] Laurent Higgins, PhD [address] [facility] Medical Office Building, [address] [place] [address] Other Social History Tobacco Use [...] on filedocumented in this encounter Care Teams Enrollment Services Dean Relationship Specialty Start Date End Date Mai Lilly MD [address] [place] [address] PCP - General 02/20/15 documented as of this encounter
--- OUTSIDE RECORDS SUMMARY | 2024-06-22 06:15 | XMS_ITS | Encounter Summary ---
[place] [address] Care Team Providers Care Cafe Attendant Name Role Phone Mai Wong MD Primary Care Provider [phone] Reason for Referral * Speech Therapy (Routine) - Closed Specialty Diagnoses / Procedures Referred By Contaleena t Referred To Contact Speech Pathology / Speech Therapy Diagnoses TBI (traumatic brain injury), without loss of consciousness, subsequent encounter Work related injury Gray Richardson [facility] [place] [address] [facility] Asset Protection Manager [facility] [place] [address] Referral ID Status Reason Start Date Expiration Date V isits Requested Visits Authorized [id number] Closed Evaluate and Treat 11/17/2015 11/16/2016 1 1 * Occupational Therapy (Routine) - Closed Specialty Diagnoses / Procedures Referred By Contac t Referred To Contact Occupational Therapy Diagnoses TBI (traumatic brain injury), without loss of consciousness, subsequent encounter Work related injury Gray Richardson [facility] [place] [address] [facility] Ot [facility] [place] [address] Referral ID Status Reason Start Date Expiration Date V isits Requested Visits Authorized [id number] Closed Evaluate and Treat 11/17/2015 11/16/2016 1 1 Reason for Visit * Reason Comments Establish Care cognitive rehab for concussion Encounter Details Date Type Department Care Team (Late st Contact Info) Description 10/16/2015 10:00 AM EDT Office Visit General Surgery at [facility] [place] [address] Gray Richardson, [facility] [address] TBI (traumatic brain injury), without [...] this encounter Progress Notes * Gray Richardson, AUTOPSY PATHOLOGIST - 10/24/2015 9:02 AM EDT Interdisciplinary TBI [...] symptom management x Rehabilitation services OT and ARMED GUARD Additional Specialty consults see Dr Dennis's notes [...] Acute Care Surgery Department of General Surgery, [facility] [place] CC: MAI WONG MD documented in this [...] site documented in this encounter Care Teams Cafe Attendant Relationship Specialty Start Date End Date Mai Wong MD [facility] [address] [place] [address] PCP - General Family Medicine 12/03/15 documented as of this encounter
--- OUTSIDE RECORDS SUMMARY | 2024-06-22 06:15 | XMS_ITS | Encounter Summary ---
[place] [address] Care Team Providers Care Signal Engineer Name Role Phone Mai Lilly MD Primary Care Provider Reason for Visit * Occupational Therapy (Routine) - Closed Specialty Diagnoses / Procedures Referred By Chantel allen Referred To Contact Occupational Therapy Diagnoses TBI (traumatic brain injury), without loss of consciousness, subsequent encounter Work related injury Darlin Richardson, REFINING MACHINE OPERATOR [facility] [place] [address] [facility] [place] [address] Referral ID Status Reason Start Date Expiration Date V isits Requested Visits Authorized [id number] Closed Evaluate and Treat 11/17/2015 11/16/2016 1 1 Encounter Details Date Type Department Care Team (Latest Contact Info) Description 12/03/2015 2:30 PM EDT Office [place] [address] Leah Estrella, OT Attention and [...] CODE TREATMENT TIME: Evaluation 55 minutes Evaluation (85690) 23-68 min HISTORY: Isaiah Man is a [...] symptoms and referred to occupational therapy and ASSISTANT PROFESSOR OF SOCIOLOGY for evaluation and treatment. Isaiah Man presents [...] without difficulty, has a challenge with using theCloud Sustainabilityputer- can use a laptop for 15 mins [...] few weeks ago for [facility] appointment in [facility] (broke the trip down into 3 stops); then had a shortened appointment, was able todrive home with a brief break- was completely exhausted independent with modifications independent with paratransit requires limb driver/primer inspector due to cognitive or physical limitations homebound/unable to access transportation Other LEISURE SKILLS (X) NOTES/ ADAPTIVE EQUIPMENT Able to identify interests and reports regular participation Able to identify interests however reports infrequent participation X Is getting out and seeing friends; was able to go to a [employer] concert to see a friend from [place] who has ALS Was able to make it to intermission and stayed in a hotel to prevent exhaustion from driving and concert Able to identify interests but is not participating Unable to identify leisure activites Other Work Status: Off work Work Role: 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 ?? She is engaged in several alternative [...] verbal fluency (for which she will see ASSISTANT PROFESSOR OF SOCIOLOGY). She is also self reporting deficits in [...] return to premorbid activities. Next visit: CRISTELA Half-Way Goals (to be met by discharge): Date [...] 6-12 week(s) to progress toward short and nursing home goals. for Cognitive retraining attention, sequencing, problem [...] encounter documented in this encounter Care Teams Signal Engineer Relationship Specialty Start Date End Date Mai Lilly MD [address] [address] PCP - General Family Medicine 12/03/15 documented as of this encounter
--- OUTSIDE RECORDS SUMMARY | 2024-06-22 06:15 | XMS_ITS | Encounter Summary ---
Author Organization [facility] Address [address] [place] [address] Care Team Providers Care Garment Mender Name Role Phone Unavailable Primary Care Provider Unavailabl e Encounter Details Date Type Department Care Team (Late st Contact Info) Description 10/19/2005 Results Only [facility] [address] [place] [address] Edgard Fraser MD [address] [place] [id number] Social History Tobacco Use Types Packs/Day Years [...] ? VICKY JONES ? Accession #: ? [id number] : ? 1955 (Age: 49) ??F ?Collect Date: ? 10/19/2005 Location: ? [facility] ? Receive Date: ? 10/21/2005 Provider: ?EDGARD FRASER MD Copy to: ? Specimen/Source: ?ThinPrep Pap Test, Cervix/Endocervix, processed on [employer] ThinPrep Imaging System, with manual evaluation Last [...] End of Report [facility] 10/19/2005 10/21/2005 us Edgard Fraser MD PATHOLOGY ORDERABLES Fin al Result [facility] [address] [place] [address] documented in this encounter Visit Diagnoses Not on filedocumented in this encounter
--- OUTSIDE RECORDS SUMMARY | 2024-06-22 06:15 | XMS_ITS | Encounter Summary ---
Author Organization [facility] Address [facility] [place] [address] Care Team Providers Care Production Department Supervisor Name Role Phone Mai Lilly MD Primary Care Provider [phone] Encounter Details Date Type Department Care Team (Latest Contact Info) Description 02/04/2016 2:30 PM EDT Office [place] [address] Leah Estrella, OT Attention and concentration deficit; [...] TFA 55 minutes Therapeutic / Functional Activities (29774) 55 min HISTORY: Isaiah Man is a [...] symptoms and referred to occupational therapy and RN CARDIOVASCULAR for evaluation and treatment. Isaiah Man presents [...] lights- minimal distraction Deck of cards, onlinecatalogue (Beegit) Independent This task was d/c'ed from the home program because it wasnot challenging enough after a few trials PQRST strategy for videos and reading material (Isaiah reports that reading retention is not an issuebut that she is challenged by sensory stimulation/overload/density of new material) Provided a short list of videos to practice with: recovery: http://www.brainline.org/content/multimedia.php?gz=5146 resiliency: http://www.brainline.org/content/multimedia.php?xw=2875 http://www.choa.org/Bqdmbqbrj-Ocsfzydy-Kifdwpts/Concussion/Concussion-Module Sitting in room with dimmed lights Computer, [...] making progress and believes that OT and RN CARDIOVASCULAR are helpful for her recovery. Isaiah reports that she is pleased with the slow but forward progress she is making through OT and RN CARDIOVASCULAR. Isaiah reports that initiation of activities is [...] map searching (math tasks are not challenging) Paving Crew Foreman Goals (to be met by discharge): Date [...] 6-12 week(s) to progress toward short and extermination supervisor goals. for Cognitive retraining attention, sequencing, problem [...] site documented in this encounter Care Teams Production Department Supervisor Relationship Specialty Start Date End Date Mai Lilly MD [address] [place] [address] PCP - General Family Medicine 12/03/15 documented as of this encounter
--- OUTSIDE RECORDS SUMMARY | 2024-06-22 06:15 | XMS_ITS | Encounter Summary ---
Author Organization [facility] Address [facility] [place] [address] Care Team Providers Care Pediatric Nephrologist Name Role Phone Mai Lilly MD Primary Care Provider [phone] Encounter Details Date Type Department Care Team (Latest Contact Info) Description 01/05/2016 11:00 AM EDT Office Visit Speech Therapy at [facility] [place] [address] Cammie Gallo, ADDICTION MEDICINE PHYSICIAN Attention and concentration deficit Social History Tobacco [...] other activities. She actually listened to the [employer] this am while driving. ?? Isaiah said [...] Review computer items completed. Cammie Gallo M.S., CCC-ADDICTION MEDICINE PHYSICIAN Pager#[phone] documented in this encounter Plan of Treatment Not on file documented as of this encounter Visit Diagnoses Diagnosis Attention and concentration deficit Attention or concentration deficit documented in this encounter Care Teams Pediatric Nephrologist Relationship Specialty Start Date End Date Mai Lilly MD [address] [place] [address] PCP - General Family Medicine 12/03/15 documented as of this encounter
--- OUTSIDE RECORDS SUMMARY | 2024-06-22 06:15 | XMS_ITS | Encounter Summary ---
Author Organization [facility] Address [address] [place] [address] Care Team Providers Care Appliance Painter And Refinisher Name Role Phone Mai Lilly MD Primary Care Provider [phone] Reason for Visit * Reason Onset Date Comments Results 04/10/2015 Encounter Details Date Type Department Care Team (Late st Contact Info) Description 04/10/2015 Telephone [facility] Memory Program - Medical Office Building [address] [place] [address] Laurent Higgins, PhD 2 [facility] Medical Office Building, [address] [place] [address] Results Social History Tobacco Use [...] visit to the patient at: Michelle Man [address] [place] [id number] This was done per the directive of [...] on filedocumented in this encounter Care Teams Appliance Painter And Refinisher Relationship Specialty Start Date End Date Mai Lilly MD [address] [place] [address] PCP - General 02/20/15 documented as of this encounter
--- OUTSIDE RECORDS SUMMARY | 2024-06-22 06:15 | XMS_ITS | Encounter Summary ---
[place] [address] Care Team Providers Care Mortar Mixer Name Role Phone Mai Lilly MD Primary Care Provider [phone] Reason for Visit * Speech Therapy (Routine) - Closed Specialty Diagnoses / Procedures Referred By Chantel allen Referred To Contact Speech Pathology / Speech Therapy Diagnoses TBI (traumatic brain injury), without loss of consciousness, subsequent encounter Work related injury Darlin Richardson APRN [facility] [place] [address] [facility] Mortgage [place] [address] Referral ID Status Reason Start Date Expiration Date V isits Requested Visits Authorized [id number] Closed Evaluate and Treat 11/17/2015 11/16/2016 1 1 Encounter Details Date Type Department Care Team (Latest Contact Info) Description 12/16/2015 10:00 AM EDT [place] [address] Cammie Gallo, IRONER HAND Attention and concentration deficit Social History Tobacco [...] injuries, including a broken leg. Per Dr. Dnenis's 10/16/15 office visit note, Her [Isaiah's] greatest [...] to visit. Academic/Vocational: Isaiah graduated from the [employer] with a degree in Art History. She reported that she was Phi Beta Rhame and Magna Cum Laude, which is why she was dissatisfied withresults of neuropsychological testing performed in [place], [place] (results of which were unavailable at this time) that indicated normal cognitive function as scores reportedly were within the average to high average range. 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 She is unable to work at this time. Social: Isaiah lives alone in [place], [place]. EVALUATION Hearing/Vision: Both were informally deemed [...] about a program currently being used in [place], [place] by Johnny Abarca. According to the hand-out, Johnny is a member of a therapy group who call their practice [facility]. It is entitled [facility] Neurofeedback from the [facility]. The phone contact numberprovided is [phone]. The program is an offshoot of biofeedback. Details were provided in the hand-out. Isaiah has found this program to be quite helpful as it incorporates music into a relaxation program. Isaiah has also found cranio-sacral and acupuncture to be helpful. ?? Isaiah also reported that she is unable to nap and when she needs to zone out watches old TV shows and reads record maker novels that are less demanding cognitively. The [...] deductive reasoning/logic puzzles from book A1 of [employer]. Asked that Isaiah monitor her endurance and [...] much for this referral. Cammie Gallo M.S., [facility]-IRONER HAND Speech-Language Pathologist Pager# [phone] documented in this encounter Plan of Treatment Scheduled Referrals Name Type Priority Associated Diagnoses Orde r Schedule Referral to Speech Therapy Outpatient Referral Routine TBI (traumatic brain injury), without loss of consciousness, subsequent encounter Work related injury Ordered: 11/17/2015 documented as of this encounter Visit Diagnoses Diagnosis Attention and concentration deficit Attention or concentration deficit documented in this encounter Care Teams Mortar Mixer Relationship Specialty Start Date End Date Mai Lilly MD [address] [place] [address] PCP - General Family Medicine 12/03/15 documented as of this encounter
--- OUTSIDE RECORDS SUMMARY | 2024-06-22 06:15 | XMS_ITS | Encounter Summary ---
Author Organization [facility] Address [address] [place] [address] Care Team Providers Care Distillation Operator Helper Name Role Phone Unknown, Provider MD Primary Care Provider Unava ilable Reason for Visit * Reason Onset Date Comments Appointment Related 02/13/2015 Encounter Details Date Type Department Care Team (Late st Contact Info) Description 02/13/2015 Telephone [facility] Memory Program - Medical Office Building [address] [place] [address] Laurent Higgins, PhD 2 [facility] Medical Office Building, [address] [place] [address] Appointment Related Social History Tobacco [...] get through it. * Telephone Encounter - Mona Castellano - 02/13/2015 1318 EDT Patient would like to know what is going to be done at her appointment next week. She would like specifics. She is available today, 02/13/15 until 2 pm and 02/14/15, in the afternoon. She can be reached at [phone]. documented in this encounter Plan of Treatment Not on file documented as of this encounter Visit Diagnoses Not on filedocumented in this encounter Care Teams Distillation Operator Helper Relationship Specialty Start Date End Date Unknown, Provider, PCP - General 02/20/14 02/19/15 documented as of this encounter
--- OUTSIDE RECORDS SUMMARY | 2024-06-22 06:15 | XMS_ITS | Encounter Summary ---
Author Organization [facility] Address [facility] [place] [address] Care Team Providers Care Preform Machine Operator Name Role Phone Mai Lilly MD Primary Care Provider [phone] Encounter Details Date Type Department Care Team (Latest Contact Info) Description 01/05/2016 1:00 PM EDT Office [place] [address] Leah Estrella, OT Attention and concentration deficit; [...] TFA 55 minutes Therapeutic / Functional Activities (14376) 55 min HISTORY: Isaiah Man is a [...] symptoms and referred to occupational therapy and LAST TURNER for evaluation and treatment. Isaiah Man presents [...] and stuttering (for which she will see LAST TURNER). ?? She is engaged in several alternative [...] verbal fluency (for which she will see LAST TURNER). She is also self reporting deficits in [...] a quiet dimmed room (which is not sales representative leather goods of the workplace). Relative weaknesses: Isaiah did [...] therapy MVPT Discuss compensatory strategies- scheduling tasks Detention Goals (to be met by discharge): [...] 6-12 week(s) to progress toward short and alf goals. [...] encounter documented in this encounter Care Teams Preform Machine Operator Relationship Specialty Start Date End Date Mai Lilly MD [address] [place] [address] PCP - General Family Medicine 12/03/15 documented as of this encounter
--- OUTSIDE RECORDS SUMMARY | 2024-06-22 06:15 | XMS_ITS | Encounter Summary ---
Author Organization [facility] Address [address] [place] [address] Care Team Providers Care Aircraft Armament Mechanic Name Role Phone Mai Lilly MD Primary Care Provider [phone] Encounter Details Date Type Department Care Team (Late st Contact Info) Description 04/16/2019 Results Only [facility] Lab - Main [address] [address] Jovanny, Steff Costello [place] Social History Tobacco [...] * T4 FREE (04/16/2019 13:00 EST) FREE [address] 0.87 0.78 - 2.19 ng/dl 04/16/2019 19:29 EST [facility] 04/16/2019 13:0 0 EST 04/16/2019 17:39 EST us Steff Petty [place] CHEMISTRY & BLOOD GAS ORDERABLE S Final Result [facility] documented in this encounter Visit Diagnoses Not on filedocumented in this encounter Care Teams Aircraft Armament Mechanic Relationship Specialty Start Date End Date Mai Lilly MD [address] [place] [address] PCP - General 02/20/15 documented as of this encounter
--- OUTSIDE RECORDS SUMMARY | 2024-06-22 06:15 | XMS_ITS | Encounter Summary ---
Author Organization [facility] [place] [address] Care Team Providers Care Fabrication And Layout Craftsman Name Role Phone Mai Lilly MD Primary Care Provider [phone] Encounter Details Date Type Department Care Team (Latest Contact Info) Description 01/21/2016 11:00 AM EDT Office Visit Speech Therapy at [facility] [place] [address] Cammie Gallo, CONSUMER LOAN MANAGER Attention and concentration deficit Social History Tobacco [...] Treatment: 31min for cognitive skills S: ?? Michelle agreed to join another TBI survivor for a group therapy visit today. ?? Did not check Michelle's pain level today and she did not report it. O: ?? Although Michelle initially seemed a little reluctant to undergo a group treatment session, after this visit she reported to OT as well as to me that the visit was quite worthwhile. She indicated thather interaction with the other survivor reminded her how far she has come from where she was earlier in her recovery. ?? Michelle provided multiple pieces of information to the other survivor based on her own experience, always prefacing her recommendations with appropriate acknowledgement that her recs were based on her own needs and situation. She cautioned the other survivor to check with her health professionals first to ensure her own safety. ?? Michelle was able to succinctly relay information about her head injury and sequelae, also discussing our current political candidates for President, presenting valid arguments for support of her candidate. ?? Michelle said that she has observed steps forward this past week. She informed her TBI partner todaythat she has benefited from use of a white board at home with to-do and appointment information, watching old westerns on TV that are slower paced allowing more time for information processing, etc. ?? Michelle also reported on her alternative method of falling asleep as her partner also has sleep problems. Propanolol has worked best for Michelle's headaches. A: ?? Colon reported that this week's group visit was helpful as meeting with another TBI survivor who isn't as far out from her injury as is Michelle revealed to her how far she has come. Michelle was quite helpful to her TBI partner as she has taken advantage of as many traditional as well as alternative medicine alternative as she can in order to maximize return of baseline function. P: ?? Adjusted computer program roster. ?? Review computer items completed. Cammie Gallo M.S., [facility]-CONSUMER LOAN MANAGER Pager#[phone] documented in this encounter Plan of Treatment Not on file documented as of this encounter Visit Diagnoses Diagnosis Attention and concentration deficit Attention or concentration deficit documented in this encounter Care Teams Fabrication And Layout Craftsman Relationship Specialty Start Date End Date Mai Lilly MD [address] [place] [address] PCP - General Family Medicine 12/03/15 documented as of this encounter
--- OUTSIDE RECORDS SUMMARY | 2024-06-22 06:15 | XMS_ITS | Encounter Summary ---
Author Organization [facility] Address [address] [place] [address] Care Team Providers Care Mechanic Welder Truck Driver Name Role Phone Mai Lilly MD Primary Care Provider [phone] Encounter Details Date Type Department Care Team (Late st Contact Info) Description 04/16/2019 Results Only [facility] Lab - Main [address] [address] Faalice, Steff Costello, CHAYA Social History Tobacco [...] * T3 FREE (04/16/2019 13:00 EST) T3,FREE [facility] 3.4 2.8 - 4.4 pg/mL 04/17/2019 20:[address] [facility] Comment: Test Performed by: [facility] [address] [place] [address] City Supervisor: Edison Lee M.D. Ph.D.; CLIA# [id number] 04/16/2019 13:0 0 EST 04/16/2019 17:39 EST us Steff W Faesy [place] CHEMISTRY & BLOOD GAS ORDERABLE S Final Result [facility] * TSH (04/16/2019 13:00 EST) Pathologist [facility] THYROID STIM [facility] 1.20 0.46 - 4.68 uIU/ml 04/16/2019 19:[address] [facility] Comment: The results of this assay can be falsely lowered due to the consumption of Biotin. 04/16/2019 13:0 0 EST 04/16/2019 17:39 EST us Steff W Faesy [place] CHEMISTRY & BLOOD GAS ORDERABLE S Final Result Performing Organization Address [facility] Co de Phone Number [facility] documented in this encounter Visit Diagnoses Not on filedocumented in this encounter Care Teams Mechanic Welder Truck Driver Relationship Specialty Start Date End Date Mai Lilly MD [address] [place] [phone] PCP - General 02/20/15 documented as of this encounter
--- OUTSIDE RECORDS SUMMARY | 2024-06-22 06:15 | XMS_ITS | Encounter Summary ---
Author Organization [facility] Address [address] [place] [address] Care Team Providers Care Account Executive Agribusiness Name Role Phone Mai Lilly MD Primary Care Provider [phone] Reason for Visit * Reason Comments Concussion * Consult (Routine) - Closed Specialty Diagnoses / Procedures Referred By Chantel allen Referred To Contact Psychology Cricket Rubalcava MD [address] [place] [address] Phone: tel: fax: Laurent Higgins, PhD Phone: tel: fax: Referral ID Status Reason Start Date Expiration Date Visits Re quested Visits Authorized [id number] Closed 1 1 Encounter Details Date Type Department Care Team (Latest Contact Info) Description 02/20/2015 10:00 EDT Office Visit [facility] Memory Program - Medical Office Building [address] [place] [address] Laurent Higgins, PhD 2 [facility] Medical Office Building, [address] [place] [address] Postconcussion syndrome (Primary Dx); Adjustment [...] on 02/20/2015. She was referred by Dr. Cricket Rubalcava (Neurology) and was seen as an outpatient at the Medical Office Building on the [facility] of the [facility]. PERTINENT BACKGROUND INFORMATION: Ms. Man was born in [facility] and grew up variously in [place], [place] and [place]. Her mother suffered from multiple lifelong medical problems and at age 56 due [place] as a complication of gall bladder surgery. Her father at age 84 following CVA. She has three older siblings, all living in other states. She graduated from high school in 1971 and obtained a BA inArt History from the [employer] in 1980. 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 She is currently single, has no current relationship, and no children. She lives alone in [place]. Ms. Man has a medical and neurological [...] was loss of consciousness, but reportedly had HYDRANT SETTER or AOC of several seconds to a minute or so. She was taken by EMT to [facility]. She was documented to have a [employer] [...] was transported here by an RCT volunteer escort car driver; she chose not to drive herself due [...] skills seem intact. 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 As previously indicated, she has been out of work and on disability for about one year. She drives about four times a week and reports that she now avoids driving long trips or in cities, if possible. Her overall social and community functioning has diminished some due to low energy, but she enjoys walking her dog, going to the [employer] [place], and visiting with friends and neighbors, [...] trials was quite acceptable for verbal information (2-1-28-15-15 of 16 over five trials) andokay for [...] hrs - Time includes 3 hrs of [address] performed by a psychologist (this time consisted of interview, test administration, scoring and report preparation) and 3 [place] [address] performed by a clinical pharmacy technician (this time was separate from that of the psychologist). documented in this encounter Plan of Treatment Not on file documented as of this encounter Visit Diagnoses Diagnosis Postconcussion syndrome- Primary Adjustment disorder with mixed anxiety and depressed mood documented in this encounter Care Teams Account Executive Agribusiness Relationship Specialty Start Date End Date Mai Lilly MD [address] [place] [phone] PCP - General 02/20/15 documented as of this encounter
--- OUTSIDE RECORDS SUMMARY | 2024-06-22 06:15 | XMS_ITS | Data Portability ---
Author Organization [place] - [facility] Address [address] [place] [address] Care Team Providers Care Manager Administrative Services Name Role Phone MICHELLE GUERRA OTHER MANNY LARRY OTHER LUIS FERNANDO MAS Home Care Assistant [phone] Assessment Encounter Date Assessment Date Assessment LastModified by Organization Details LastModified Time 02/28/2018 02/28/2018 A complex case f or sure. I'll discuss specific pathology, a global view of the case, and potential next steps. 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 Neck pain with no neurological deficit and stable spine Leg injury with fibular fracture, ankle mortise related pain (medial ligament strain), fibular head hypermobility, and intrinsic foot pain. Adjustment to disability including depression. I do not feel that future treatment will be guided by new diagnostic tests. Specific treatments of specific complaints have been done, if anything overdone. Although we can try others, my sense is that we'll fail with this approach. GLOBAL VIEW: Most concussions, even with loss of consciousness, resolve substantially or stabilize, and even severe traumatic brain injury improves substantially in most patients. Most fibular fractures become asymptomatic or at least less bothersome over time. So the course of each is far, far deviant from usual. Then, having two unrelated pathologies take this unusual course is also highly unlikely to be coincident. 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 My differential diagnosis for this failed recovery is complex. I will list my thoughts, but don't have clear conclusions yet: I need to first clearly state that I do not think she is malingering or consciously exaggerating symptoms. My personal impression today, her impressive life trajectory to the time of injury, and the more objective psychological tests such as MMPI support the idea that she really wants to get better. 1. Its possible that specific care has actually perpetuated pathology in the head and the ankle. So maybe too much or adverse manipulation makes her feel good short term but perpetuates ligament or other pathology. Maybe recurrent treatment of the complex leg problem with injections, etc. actually perpetuated ligament laxity or other biomechanics. 2. Its possible that she and her clinicians have perpetuated a sense that treatment rather than natural history is required. Research, mostly in the pain literature, shows that 'inattention' to symptoms results in better outcomes than focus on them and their treatment. Good, experienced clinicians will stop treatment and seek other help when their interventions have not met their goals within a timeline based on literature or at least their experience with past successes, I saw that disciplined approach from speech therapy, but not other interventions. 3. Its possible that subconscious factors, personality traits and other factors cause her brain to focus on the symptoms, thus amplifying them and even mechanically creating a situation that exacerbates the local pathology. The PTSD is one factor that remains unexplored, and there may be others. Any and all of these may come into play. I'll always keep my mind open to 'quick fixes' and missed diagnoses, of course. however she's had all reasonable treatments and a bunch that are not standard. POTENTIAL NEXT STEPS: S he may be ready to accept the current impairments and get on with her life. Rehabilitation would be a different approach. As we discussed today, this is not easy and it is not done on her own. Rather its a very complex process involving a team of therapists. In chronic pain this is a well-trod path, exemplified by work in the [facility] (William Siddiqui, Aureliano Roman, William Arevalo and others) and by the programs I'm designing here in [place]. For brain injury, to my knowledge, there are not programs that take this approach, and certainly here in [place] we do not have such a team in place. If we were to do this, it would require her to be very actively planning with me on logistics and coordination. The process might look like this: 1. She meets with me to review the steps and answer all questions, then decide her commitment. 2. Bring together counselor (her current one, or if not appropriate one we've worked with) Physical therapy and occupational therapy for single-visit assessments, obtain feedback from them. 3. Present a plan that requires her to commit to stopping all other treatments for 6 months. She may need to wrap up some treatments before taking that step. 4. Have her participate in a specific, time-limited program of challenging her psychological, social, physical limits. Maybe 6 weeks 3x/week, for instance. When we're done she will continue on her own, except a few scheduled visits with me to support and enforce learning. Plan: 1 hour visit today, most in discussion She should go home to digest all this, priscilla even talk to her counselor. if she's curious we can meet again, discuss, and perhaps plan how such a program might move forward. A very worthy patient and a challenging case. I do hope we can help. Not available 03/02/2018 10:53:01 03/14/2018 03/14/2018 Today's visit wa s well over an hour of very productive discussion. Without her transplant case manager on the lines she very artfully helped me to understand ways we can work well together. Then with her transplant case manager we outlined the program ideas that I have for a 'headache' analogy of a functional alevism program. This would involve PT, OT, counseling, and ideally speech pathology. She'd meet with each production team member, then I'd have a team conference in [facility] we outline specific goals and time frames, resulting in a coordinated approach, time limited, with scheduled, non'PRN' follow-up with me in the subsequent months. She would need to agree to cease most outside treatments for at least 6 months--we'd have to clarify the optometry work, and there could be ongoing medications, but the program would be focussed on 'living with it' rather than 'fixing it'. I have no problem with her seeking outside expert opinions and gave some contacts, but I think this is a best approach for up here in [place]. I will not outline the many details of our discussion, however it seems we both have a strong understanding of how this might work, relative strengths and weaknesses of both the idea and execution. it will be a new approach and a challenging one for all. Plan: 1 hour+ today face to face. She should get written permission for her senior care counselor to speak with me for the duration of this process. I contacted Nadir Rodriguez OTR who agrees to participate I contacted Kamini Cervantes PT, who agrees to participate I am seeking out appropraite counselors for the short term project and will also look for LENS INSERTER help. When this is aligned she'll see each person, then we'll have a team meeting, then we'll build a concrete program. Not available 03/14/2018 18:00:34 05/11/2018 05/11/2018 Certainly my hammad t viridiana approach to a functional alevism type program is not well precedented, but it was worth a try. Kamini Cervantes PT is on board, but i cannot find an appropriate counselor, the only private OT that might have an interest does not want to do the case and [facility] OT is preoccupied with programs and other work so I do not believe I can put this together. Michelle agrees that this cannot happen. My impression is that ongoing chiropractic, PT and other interventions are counter-productive to her recovery for many reasons. First, they have become excessive after 4 years, without a reasonable progress that could be attributed to the interventions. Second, I think its quite psychological counterproductive for Michelle to not move on despite the problems. An exception is her eye treatment. She seems to be making progress, and this is a sub-specialty intervention that I do not have substantial expertise in. Certainly the clinician should set expert goals and time frames, and if they are crossed without success, treatment should cease, but I defer to someone more expert than myself. Michelle does, by the way, have some permanent impairment from her ankle and the cognitive functions well documented in neuropsych testing. I'm willing to see Michelle in the future, but I have no other treatments to offer at this time, and aside from optometry I think she is at a maximum medical improvement. Not available 05/31/2018 15:44:13 Plan of Treatment Reminders Order Date Submit Date Provider Last Modified By Organization Details Last Modified Time Details Appointments None record ed. Lab None record ed. Referral None record ed. Procedures None record ed. Surgeries None record ed. Imaging None record ed. Medication Orders None record ed. Patient TargetsNo targets recorded. Patient InstructionsNo instructions recorded. Reason for Referral None Reported. Problems Name Problem SNOMED Code Status Onset Date Resolution Date Notes Provider Name and Address Organization Details Recorded Time Fracture of fibula 65259169 Active 2017 Mingo Vasquez MD [address], [place], [address], [facility] 8 07:26:37 Concussion injury of brain 125500878 Active 2017 Mingo Vasquez MD [address], [place], [address], [facility] 8 07:26:45 Posttraumatic stress disorder 64916851 Active 2017 Mingo Vasquez MD [address], [place], [address], [facility] 8 07:26:57 Problem Notes None recorded. Medical Equipment None Reported. Allergies Allergen ID Allergen Name Allergen Category Reaction Reaction Severity Criticality Documentation Date Start Date Code Code System Note Provider Name and Address Organization Details Recorded Time 785 Substance with sulfonami de structure and antibacte rial mechanism of action (substanc e) medicatio n Not available Not available Not available 03/01/2018 73501 8003 SNOMED Mingo Vasquez MD [address], [place], [address], [facility] 8 08:35:54 786 prednison e medicatio n hallucina tions Not available Not available 03/01/2018 8640 RxNorm Mingo Vasquez MD [address], [place], [address], [facility] 8 08:36:08 787 amantadin e Not available other Not available Not available 03/01/2018 620 RxNorm Esoph ageal spasm s Mingo Vasquez MD [address], [place], [address], [facility] 8 08:36:41 788 Adderall medicatio n headache Not available Not available 03/01/2018 44103 RxNorm Mingo Vasquez MD [address],[facility] [address], [place], [address] 8 08:36:52 Medications Name Sig Start Date Stop Date Status Note LastModified by Organization Details LastModified Time cyclobenzaprine 10 mg tablet active Not Available Not Available Not Available fluoxetine 10 mg capsule active Not Available Not Available Not Available Vitals None Recorded Social History None recorded. Functional Status None recorded. Mental Status None recorded. Family History Nothing Reported. Medical History No medical history recorded. Gynecological HistoryNo gynecological history recorded. Obstetrics History GPAL:G 0 P 0 0 0 0 Past Encounters Encounter ID Performer Location Encounter Start Date Encounter Closed Date Diagnosis/Indication Diagnosis SNOMED-CT Code Diagnosis ICD10 Code Diagnosis Note [id number] Mingo Vasquez MD [address] [address] 02/28/2018 13:25:04 03/06/2018 14:50:14 Concussion injury of brain 915879469 S06.0X0A Fracture of fibula 73570 007 S82.401A Posttrauma tic stress disorder 76650872 F43.10 [id number] Mingo Vasquez MD [address] [address] 03/14/2018 12:24:21 03/14/2018 18:01:14 Posttraumatic stress disorder 68386701 F43.10 Concussion injury of brain 377002944 S06.0X0A Fracture of fibula 79761 007 S82.401A [id number] Mingo Vasquez MD [address] [address] 05/11/2018 13:24:32 05/11/2018 13:49:37 Concussion injury of brain 319613701 S06.0X0A Fracture of fibula 94761 007 S82.401A Health Concerns Section Related Observation LastModified by Organization Detai ls LastModified Time None Recorded Concern Status LastModified by Organization Details LastModified Time None Recorded Advance Directives Directive None Recorded Payers Encounter Date Sequence Insurance Name Policy Number Policy Lafleur Covered Member ID Lafleur Member ID Guarantor Name 02/28/2018 [employer] [facility] Michelle Man 03/14/2018 [employer] [facility] Michelle Man 05/11/2018 [employer] [facility] Michelle Man Notes Date Note Type Note Provider Name and Address Organization Details Recorded Time 02/28/2018 text/html Ms. Man complains of right leg pain and brain problems after a fall down stairs at work on 02-14-14. She is referred by her sports attorney, Russell Daryn. Prior to our visit Mr. Stearns sent about 5 inches of records and I have reviewed many, but not all of these, but including harris initial consults and independent medical evaluations. I will not reiterate the details in this clinical appointment. We also spoke on the phone. He hoped that I could provide some clarity and direction for this case. Contemporary notes indicate a fractured fibula and a bruise on the side of the head but no loss of consciousness at the time of the fall. Over the ensuing years the fracture has healed, she's had ongoing chiropractic, optometric, speech pathology, acupuncture, physical therapy, and other treatments. Dr. Guerra has performed a number of injections for plantar fasciitis, fibular head laxity, etc. etc. speech pathology has treated and signed off of her case. A psychologist's note indicates no profound pathology on MMPI. Today's pain drawing shows no out of body markings, pain right humerus area (which she notes is not related to today's purpose) and pain over the fibular head, ankle, great toe area and plantar fascia. She's taking a number of vitamins. prescription drugs include fluoxetine 10 mg, prilosec 20 mg, and flexeril Prn, 10 mg. The extensive pain questionnaire on paper includes a comprehensive medical and surgical history, 10+ system review of systems, medication list, allergies, family history, social history, and functional evaluation. It is annotated and signed my me. Especially pertinent to the discussion are: Post-traumatic stress disorder. Prior notes indicate reluctance to talk about the details, but she brought it up today. as well. I did not probe further, but she tells me she's been working for some years with a trusted counselor. Currently she spends her day at doctors appointments, spends some time walking, very occasionally interacts with friends, and is looking for work. She knows of no medically required work restrictions. 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 She wonders about job retraining given the difficult market for [id number] these days. She lives alone except a dog and 2 cats. Mingo Vasquez MD [address], [address], [facility] 03/02/2018 10:55:10 03/14/2018 text/html Michelle has complex quite disabling problems from concussion and ankle fracture 4 years ago. Today's visit was to discuss options that I had laid out and to be sure that we can communicate effectively in these difficult options. She requested an hour visit. No new symptoms since last visit. we recall ongoing work in vision therapy. she's met with her longstanding counselor (whom she describes as both a shaman and counselor) and that person is both willing to collaborate and feels (as I would expect) that the short term intense therapy should work through someone else. Mingo Vasquez MD [address], [place], [address], [facility] 03/14/2018 18:01:12 05/11/2018 text/html Since I last saw Michelle I've worked with Kamini Cervantes PT and on my own to try to put together a sophisticated team to try my experimental approach to [facility] for the concussion. I wanted to talk with Michelle today, because I cannot put together a well-functioning team. She tells me that vision therapy is progressing with some nice improvement in symptoms. Nothing new otherwise, she tells me. She's working with Mingo Ko DC on her own. Mingo Vasquez MD [address], [place], [address], [facility] 05/31/2018 15:44:30 OBGyn Episode No OBEpisode recorded.
--- OUTSIDE RECORDS SUMMARY | 2024-06-22 06:15 | XMS_ITS | Encounter Summary ---
Author Organization [facility] Address [facility] [place] [address] Care Team Providers Care Personal Health Coach Name Role Phone Champ Arroyo DO Primary Care Provider [phone] Encounter Details Date Type Department Care Team (Late st Contact Info) Description 08/13/2015 - 08/13/2015 11:59 PM EDT Hospital Encounter Radiology Library at [facility] [place] [address] Melinda Dennis MD [facility] [place] [address] Pain Discharge Disposition: Home Social History Tobacco [...] Dennis MD IMG FILM LIBRARY O RDERABLES [place], [place] documented in this encounter Visit Diagnoses Diagnosis Pain Generalized pain documented in this encounter Care Teams Personal Health Coach Relationship Specialty Start Date End Date Champ Arroyo DO [facility] [address] [place] [address] PCP - General 04/21/10 10/15/15 documented as of this encounter
--- OUTSIDE RECORDS SUMMARY | 2024-06-22 06:15 | XMS_ITS | Encounter Summary ---
Author Organization [facility] Address [address] [place] [address] Care Team Providers Care Hypoid Gear Tester Name Role Phone Unavailable Primary Care Provider Unavailabl e Encounter Details Date Type Department Care Team (Late st Contact Info) Description 05/09/2007 Results Only [facility] - [facility] conversion [address] [place] [address] Edgard Fraser MD [address] [place] [id number] Social History Tobacco Use Types Packs/Day Years [...] ? VICKY JONES ? Accession #: ? [id number] : ? 1955 (Age: 51) ??F ?Collect Date: ? 05/09/2007 Location: ? [facility] ? Receive Date: ? 05/11/2007 Provider: ?EDGARD FRASER MD Copy to: ? Specimen/Source: ?ThinPrep Pap Test, Source Not Provided, processed on [employer] ThinPrep Imaging System, with manual evaluation Last [...] reviewed and electronically signed by: ? ANNABEL Bauer(ASCP) ? Report Date: ??05/15/2007 09:58 End of Report [facility] 05/09/2007 05/11/2007 us Edgard Fraser MD PATHOLOGY ORDERABLES Fin al Result [facility] [address] [place] [address] documented in this encounter Visit Diagnoses Not on filedocumented in this encounter
--- OUTSIDE RECORDS SUMMARY | 2024-06-22 06:15 | XMS_ITS | Encounter Summary ---
Author Organization [facility] Address [facility] [place] [address] Care Team Providers Care Cert Pharmacy Tech Name Role Phone Mai Lilly MD Primary Care Provider [phone] Reason for Visit * Reason Comments Follow-up Encounter Details Date Type Department Care Team (Late st Contact Info) Description 02/26/2016 11:00 AM EDT Office [place] [phone] Melinda Dennis MD [facility] [place] [address] Post concussive syndrome Social History Tobacco Use [...] syndrome documented in this encounter Care Teams Cert Pharmacy Tech Relationship Specialty Start Date End Date Mai Lilly MD [address] [place] [address] PCP - General Family Medicine 12/03/15 documented as of this encounter
--- OUTSIDE RECORDS SUMMARY | 2024-06-22 06:15 | XMS_ITS | Referral Summary ---
Author Organization [facility] Address [address] [place] [address] Care Team Providers Care Studio Technician Video Operator Name Role Phone Mai Lilly MD Primary Care Provider Social History Tobacco Use Types Packs/Day Years [...] file Plan of Treatment Not on file Insurance MEDICAID [place] Care Teams Studio Technician Video Operator Relationship Specialty Start Date End Date Mai Lilly MD [address] [place] [phone] PCP - General 02/20/15
--- OUTSIDE RECORDS SUMMARY | 2024-06-22 06:15 | XMS_ITS | Encounter Summary ---
Author Organization [facility] Address [address] [place] [address] Care Team Providers Care Dude Ranch Manager Name Role Phone Mike Johnson MD Primary Care Provider + Encounter Details Date Type Department Care Team (Late st Contact Info) Description 11/17/2010 Results Only [facility] Services - [facility] ([facility]) [address] [place] [address] Raul Liang MD Social History Tobacco [...] ? VICKY JONES ? Accession #: ? [id number] ? : ? 1955 (Age: 54) ??F [...] reviewed and electronically signed by: ? Chaya Socoror, CT(ASCP) ? Report Date: ??11/25/2010 14:51 ? End of Report ? [facility] 11/17/2010 11/19/2010 us Raul Liang MD PATHOLOGY ORDERABLES Final Resu lt Performing Organization Address City/State/[facility] Co de Phone Number [facility] [address] [place] [address] documented in this encounter Visit Diagnoses Not on filedocumented in this encounter Care Teams Dude Ranch Manager Relationship Specialty Start Date End Date Mike Johnson MD [address] [place] [address] PCP - General 11/18/10 02/19/14 documented as of this encounter
[2024-06-22] MEDS: Lactated Ringers 1,000 ML 80 ML IV (06:46)
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
--- NOTE | 2024-06-22 08:18 | STOM_PTH ---
PATIENT: Michelle Mna LOC: [facility] U#:[id number] AGE/SX: 68/F ROOM: RE06/22/[address]: Elke Welch : 1955 BED: DIS: 06/22/2024 SPEC #: [id number] RECD: 06/22/24 12:50 STATUS: LIBERTAD REQ #: [id number] CLOVIS: 06/22/24 08:[address]: Elke Welch DEPT: Surgical Specimen RECD BY: Mattie Tolentino ENTERED: 06/22/24 12:51 SP TYPE: STOMACH OTHR DR: Tina Caputo Tissues: 1 - BIOPSY BOWEL 2 - STOMACH BIOPSY 3 - STOMACH BIOPSY 4 - ESOPHAGUS BIOPSY 5 - HERNIA SAC,OTHER 6 - ESOPHAGUS BIOPSY Procedures: GROSS AND MICRO LEVEL 4 SPECIAL STAIN 1 Comments: [id number]
--- NOTE | 2024-06-22 09:36 | W.ANESPOSTOP ---
Postoperative Evaluation Date, Time and Location Date Performed: 06/22/24 Time Performed: : Patient Location: PACU Vital Signs Most Recent Imported Vital Signs: Most Recent Vital Signs Temp Pulse Resp BP Pulse Ox 36.3 C L 63 17 110/72 99 06/22/24 09:27 06/22/24 09:27 06/22/24 09:27 06/22/24 09:27 06/22/24 09:27 Pain Score Most Recent Pain Score: Most Recent Pain Score Pain Level 0 06/22/24 09:27 Assessment Mental Status: Awake (Alert & Oriented to Patient Baseline) Airway and Respiratory Function: Patent airway with normal (patient baseline) respiratory exam Cardiovascular Function: Hemodynamically Stable Hydration Status: Adequately Hydrated Nausea & Vomiting: No Nausea or Vomiting Pain: Pt. Denies Any Pain Peripheral Nerve Block: Patient did not receive a nerve block
[2024-06-22] MEDS: Pantoprazole 40 MG VIAL IVP (09:44)
[2024-06-22] MEDS: Normal Saline Flush 10 ML SYR IV (09:44)
== END 2024-06-22 11:08 | disposition home or self-care (01) ==
PROVIDERS: PCP Family Medicine; Visit Provider Surgery
PROC: 0D758ZZ Dilation of Esophagus, Via Natural or Artificial Opening Endoscopic (ICD-10-PCS; CPT 43239; principal; 2024-06-22 07:30)
DX: R13.19 Other dysphagia (principal); K21.9 Gastro-esophageal reflux disease without esophagitis; K22.10 Ulcer of esophagus without bleeding; K29.60 Other gastritis without bleeding; K44.9 Diaphragmatic hernia without obstruction or gangrene; K31.9 Disease of stomach and duodenum, unspecified; K22.89 Other specified disease of esophagus
CPT/HCPCS: 43239; 88305; 88302; 88312; J1100; J2003; J2250; J2470; J3010

== ENCOUNTER 2024-09-17 15:56 | Outpatient (REF) | payer MEDICARE, OTHER, SELFPAY ==
[2024-09-17 21:58] LABS: ALT 39 U/L (14-59); AST 35 U/L (15-37); Albumin 3.9 g/dL (3.4-5.0); Alkaline Phosphatase 100 U/L (46-116); Anion Gap 7.6 mmol/L (3-11); BUN 14 mg/dL (7-18); Bilirubin, Total 0.5 mg/dL (0.2-1.0); CO2 26.4 mmol/L (21.0-32.0); CREATININE 0.9 mg/dL (0.55-1.02); Calcium 9.3 mg/dL (8.5-10.1); Chloride 106 mmol/L (98-107); Glucose 110 mg/dL (74-106); Potassium 3.9 mmol/L (3.5-5.1); Sodium 140 mmol/L (136-145); Total Protein 7.3 g/dL (6.4-8.2)
== END 2024-09-17 15:57 | disposition home or self-care (01) ==
LOC: NCHCN 15:56
PROVIDERS: PCP Family Medicine; Visit Provider Family Medicine
DX: R74.8 Abnormal levels of other serum enzymes (principal)
CPT/HCPCS: 80053

== ENCOUNTER 2025-03-21 11:21 | Outpatient (REF) | payer MEDICARE, OTHER, SELFPAY ==
[2025-03-21 16:18] LABS: ALT 37 U/L (14-59); AST 33 U/L (15-37); Albumin 3.7 g/dL (3.4-5.0); Alkaline Phosphatase 102 U/L (46-116); Anion Gap 10.4 mmol/L (3-11); BUN 13 mg/dL (7-18); Bilirubin, Total 0.6 mg/dL (0.2-1.0); CO2 24.6 mmol/L (21.0-32.0); Calcium 9.0 mg/dL (8.5-10.1); Calculated LDL 160 mg/dL (<100); Chloride 104 mmol/L (98-107); Cholesterol 241 mg/dL (<200); Estimated GFR 79.22 (mL/min/1.73m2); Glucose 101 mg/dL (74-106); HDL Cholesterol 61 mg/dL (>or=50); Potassium 3.7 mmol/L (3.5-5.1); Sodium 139 mmol/L (136-145); TSH 2.27 uIU/mL (0.36-3.74); Total Protein 7.4 g/dL (6.4-8.2); Triglyceride 104 mg/dL (<150)
== END 2025-03-21 11:22 | disposition home or self-care (01) ==
LOC: NCHCN 11:21
PROVIDERS: PCP Family Medicine; Visit Provider Family Medicine
DX: E78.5 Hyperlipidemia, unspecified (principal); E03.9 Hypothyroidism, unspecified
CPT/HCPCS: 80053; 80061; 84443